=== PATIENT | male | born 1975 | race Hispanic/Latino ===

== ENCOUNTER 2017-12-05 19:57 | Emergency (ER) | payer BC ==
[2017-12-05 21:31] LABS: Amphetamine Screen,Urine PRESUMPTIVE NEGATIVE; Benzodiazepines Screen,Urine PRESUMPTIVE NEGATIVE; Cocaine Screen,Urine PRESUMPTIVE NEGATIVE; Methadone Screen,Urine PRESUMPTIVE NEGATIVE
[2017-12-05 21:51] LABS: Cannabinoid Screen,Urine PRESUMPTIVE POSITIVE; Opiate Screen,Urine PRESUMPTIVE POSITIVE
--- NOTE | 2017-12-05 21:52 | Cat Scan Report ---
FINAL REPORT PROCEDURE: CT HEAD/BRAIN WO CON TECHNIQUE: Computerized tomography of the head was performed without contrast material. HISTORY: seizure COMPARISON: No prior studies are available for comparison. FINDINGS: Skull and scalp: Normal. Paranasal sinuses: Mucosal thickening is noted involving right maxillary and left ethmoid sinuses.. Ventricles and subarachnoid spaces: Normal. Cerebrum: No evidence of hemorrhage, acute infarction or mass . Cerebellum and brainstem: No evidence of hemorrhage, acute infarction or mass. Vasculature: Normal. Comments: None. IMPRESSION: No acute intracranial abnormality Chronic sinusitis
[2017-12-05 22:30] LABS: Basophils % (Auto) 0.4 % (0.0-1.8); Eosinophils # (Auto) 0.1 K/mm3 (0.0-0.4); Eosinophils % (Auto) 0.9 % (0.0-4.3); Hematocrit 49.1 % (35.5-45.6); Hemoglobin 16.7 gm/dl (11.8-15.2); Lymphocytes # (Auto) 1.4 K/mm3 (1.2-5.4); Lymphocytes % (Auto) 15.5 % (13.4-35.0); Mean Corpuscular HGB Conc 34 % (32-34); Mean Corpuscular Hemoglobin 31 pg (28-32); Mean Corpuscular Volume 91 fl (84-94); Monocytes # (Auto) 0.4 K/mm3 (0.0-0.8); Monocytes % (Auto) 5.2 % (0.0-7.3); Platelet Count 206 K/mm3 (140-440); Red Blood Count 5.41 M/mm3 (3.65-5.03); Red Cell Distribution Width 13.4 % (13.2-15.2)
[2017-12-05 22:55] VITALS: BP 129/88
--- NOTE | 2017-12-05 22:57 | Emergency Department Report ---
ED Seizure HPI - General Chief Complaint: Seizure Stated Complaint: SEIZURE Time Seen by Provider: 12/05/17 22:45 Source: patient Mode of arrival: Ambulatory Limitations: No Limitations - History of Present Illness Initial Comments: Mr. Mccarty is a pleasant healthy 42-year-old male who has a history of opioid addiction and marijuana use. He had seizure-like activity earlier this afternoon. He was watching TV with his daughter. His daughter witnessed seizure-like activity. According to his report, he appeared dazed twitching all over. No incontinence. No cessation of breathing. He did not remember the event. He smokes marijuana several times a week. For the past 2-3 years has been depended on Suboxone and opioid pills that he buys from various sources. He has never cristina prescribed his medications. He never had hx of pain or injury. He has taken opioids for euphoria effect. He is now concerned about his health. He feels that he will need rehabilitation to come off opioid pills. He works in construction. Denies tobacco or alcohol use. MD Complaint: possible seizure -: Sudden, minutes(s) (3) Description of Episode: post-event confusion, other (generalized twitching, seemed dazed) Witnessed:: Yes Trauma: No Seizure History: none Place: home Possible Precipitating Event: none - Related Data Allergies Allergy/AdvReac Type Severity Reaction Status Date / Time No Known Allergies Allergy Unverified 12/05/17 21:05 ED Review of Systems ROS: Stated complaint: SEIZURE Other details as noted in HPI Comment: All other systems reviewed and negative Constitutional: denies: fever, malaise Respiratory: denies: cough Cardiovascular: denies: chest pain Gastrointestinal: denies: abdominal pain ED Past Medical Hx - Past Medical History Previous Medical History?: No - Surgical History Past Surgical History?: No - Social History Smoking Status: Never Smoker Substance Use Type: Marijuana, Other (opioid, pills) ED Physical Exam - General Limitations: No Limitations General appearance: alert, in no apparent distress - Head Head exam: Present: atraumatic, normocephalic - Eye Eye exam: Present: normal appearance - ENT ENT exam: Present: mucous membranes moist - Neck Neck exam: Present: normal inspection. Absent: tenderness, meningismus - Respiratory Respiratory exam: Present: normal lung sounds bilaterally. Absent: respiratory distress, wheezes, rales, rhonchi - Cardiovascular Cardiovascular Exam: Present: regular rate, normal rhythm. Absent: systolic murmur, diastolic murmur, rubs, gallop - GI/Abdominal GI/Abdominal exam: Present: soft, normal bowel sounds. Absent: distended, tenderness, guarding, rebound - Rectal Rectal exam: Present: deferred - Extremities Exam Extremities exam: Present: normal inspection - Back Exam Back exam: Present: normal inspection - Neurological Exam Neurological exam: Present: alert, oriented X3, CN II-XII intact, normal gait - Psychiatric Psychiatric exam: Present: normal affect, normal mood - Skin Skin exam: Present: warm, dry, intact, normal color. Absent: rash ED Course Vital Signs 12/05/17 12/05/17 12/05/17 20:06 20:53 22:54 Temperature 98.7 F 98.7 F Pulse Rate 91 H 90 72 Respiratory 20 20 18 Rate Blood Pressure 151/94 151/94 Blood Pressure 129/88 [Left] O2 Sat by Pulse 95 98 98 Oximetry ED Medical Decision Making - Lab Data Result diagrams: 12/05/17 22:04 12/05/17 22:04 - EKG Data -: EKG Interpreted by Me EKG shows normal: sinus rhythm, axis, intervals, QRS complexes, ST-T waves Rate: normal - EKG Data Interpretation: normal EKG - Radiology Data Radiology results: report reviewed CT head NAP - Medical Decision Making Mr. Mccarty was very honest. He seemed quite frightened by the event. He understands that his illicit drug use is the likely cause for seizure. At this age epilepsy with be highly unlikely. I am also concerned that his sources for pills may not be reliable. He may have pills which contain harmful additives. He has been in good health. No history of head trauma. No indication of meningitis or encephalopathy. No Obvious mass seen on head CT. He is very motivated to stop drug use. He stated that he will research drug rehab programs. He understands that he is not allowed to drive or operate heavy machinery until he is cleared by neurology. He was given seizure precautions and written and verbal form. Discharged home in stable condition. Labs CT reviewed. CBC notable for mildly elevated hemoglobin and hematocrit. ED is positive for marijuana Critical care attestation.: If time is entered above; I have spent that time in minutes in the direct care of this critically ill patient, excluding procedure time. ED Disposition Clinical Impression: Seizure, Polysubstance abuse, Marijuana abuse, Opioid dependence Disposition: DC-01 TO HOME OR SELFCARE Is pt being admited?: No Does the pt Need Aspirin: No Condition: Stable Instructions: New-Onset Seizure in Adults (ED) Referrals: MANJU DE ANDA MD [Staff Physician] - 3-5 Days ELVIRA MARTIN MD [Staff Physician] - 3-5 Days BEHZAD PRINGLE MD [Staff Physician] - 3-5 Days
[2017-12-05 22:58] LABS: Alanine Aminotransferase 15 units/L (7-56); Albumin 4.6 g/dL (3.9-5); BUN/Creatinine Ratio 11; Blood Urea Nitrogen 12 mg/dL (9-20); Calcium 9.4 mg/dL (8.4-10.2); Hemolysis Index 4
== END 2017-12-05 23:54 | disposition home or self-care (01) ==
LOC: ED 19:57
DX: G40.909 Epilepsy, unspecified, not intractable, without status epilepticus (principal); F11.20 Opioid dependence, uncomplicated; F12.10 Cannabis abuse, uncomplicated
CPT/HCPCS: 36415; 70450; 80053; 80307; 85025; 93005; 93010; 99284

== ENCOUNTER 2019-05-03 20:34 | Emergency (ER) | payer SELFPAY ==
--- NOTE | 2019-05-03 21:40 | Emergency Department Report ---
ED General Adult HPI - General Chief complaint: Overdose Stated complaint: DRUG OVERDOSE Time Seen by Provider: 05/03/19 21:03 Source: EMS Mode of arrival: Stretcher Limitations: No Limitations - History of Present Illness Initial comments: The patient presents to the ED for a drug overdose. Patient was found in front of apartment complex in his car unresponsive. Patient received 2 of Narcan and became immediately arousable. Upon the patient's arrival to the ED tells me that he took some Xanax and questionably some heroin. Patient states he feels better now and has no complaints. -: Sudden Severity scale (0 -10): 0 Consistency: now resolved Improves with: none Worsens with: none Associated Symptoms: denies other symptoms Treatments Prior to Arrival: none - Related Data Allergies Allergy/AdvReac Type Severity Reaction Status Date / Time No Known Allergies Allergy Unverified 12/05/17 21:05 ED Review of Systems ROS: Stated complaint: DRUG OVERDOSE Other details as noted in HPI Comment: All other systems reviewed and negative Constitutional: denies: chills, fever Eyes: denies: eye pain, eye discharge, vision change ENT: denies: ear pain, throat pain Respiratory: denies: cough, shortness of breath, wheezing Cardiovascular: denies: chest pain, palpitations Endocrine: no symptoms reported Gastrointestinal: denies: abdominal pain, nausea, diarrhea Genitourinary: denies: urgency, dysuria Musculoskeletal: denies: back pain, joint swelling, arthralgia Skin: denies: rash, lesions Neurological: denies: headache, weakness, paresthesias Psychiatric: denies: anxiety, depression Hematological/Lymphatic: denies: easy bleeding, easy bruising ED Past Medical Hx - Past Medical History Previous Medical History?: Yes Additional medical history: drug abuse - Surgical History Past Surgical History?: No - Social History Smoking Status: Current Every Day Smoker ED Physical Exam - General Limitations: No Limitations General appearance: alert, in no apparent distress - Head Head exam: Present: atraumatic, normocephalic - Eye Eye exam: Present: normal appearance, PERRL, EOMI - ENT ENT exam: Present: mucous membranes moist - Neck Neck exam: Present: normal inspection - Respiratory Respiratory exam: Present: normal lung sounds bilaterally. Absent: respiratory distress - Cardiovascular Cardiovascular Exam: Present: regular rate, normal rhythm. Absent: systolic murmur, diastolic murmur, rubs, gallop - GI/Abdominal GI/Abdominal exam: Present: soft, normal bowel sounds. Absent: distended, tenderness - Rectal Rectal exam: Present: deferred - Extremities Exam Extremities exam: Present: normal inspection - Back Exam Back exam: Present: normal inspection - Neurological Exam Neurological exam: Present: alert, oriented X3, CN II-XII intact. Absent: motor sensory deficit - Psychiatric Psychiatric exam: Present: normal affect, normal mood - Skin Skin exam: Present: warm, dry, intact, normal color. Absent: rash ED Course Vital Signs 05/03/19 20:45 Temperature 98.2 F Pulse Rate 104 H Respiratory 18 Rate Blood Pressure 137/94 [Right] O2 Sat by Pulse 98 Oximetry ED Medical Decision Making - EKG Data -: EKG Interpreted by Me EKG shows normal: sinus rhythm Rate: normal - Medical Decision Making Patient was evaluated emergency department for approximately 1 hour and did not have rebound from the Narcan Critical care attestation.: If time is entered above; I have spent that time in minutes in the direct care of this critically ill patient, excluding procedure time. ED Disposition Clinical Impression: Narcotic overdose Disposition: DC-01 TO HOME OR SELFCARE Is pt being admited?: No Does the pt Need Aspirin: No Condition: Stable Instructions: Narcotic Abuse (ED) Additional Instructions: RETURN IF WORSE Referrals: PRIMARY CARE [Primary Care Provider] - 3-5 Days [facility] [Provider Group] - 3-5 Days [facility] [Provider Group] - 3-5 Days Time of Disposition: 21:38
[2019-05-03 21:51] VITALS: BP 134/94
== END 2019-05-03 21:53 | disposition home or self-care (01) ==
LOC: ED 20:34
DX: T40.691A Poisoning by other narcotics, accidental (unintentional), initial encounter (principal); Y92.89 Other specified places as the place of occurrence of the external cause

== ENCOUNTER 2019-06-02 16:21 | Emergency (ER) | payer SELFPAY ==
[2019-06-02] MEDS ORDERED: NALOXONE 2 MG/2 ML INJ ONE (16:25)
[2019-06-02] MEDS ORDERED: NALOXONE 0.4 MG/1 ML INJ IV PRN (16:32)
--- NOTE | 2019-06-02 16:33 | Emergency Department Report ---
ED General Adult HPI - General Chief complaint: Overdose Stated complaint: OD/SISSY Time Seen by Provider: 06/02/19 16:31 Source: patient, EMS (Verbal report received from emergency medical services. EMS documentation not available at time of chart dictation ), RN notes reviewed, old records reviewed Mode of arrival: Stretcher Limitations: Altered Mental Status, Physical Limitation - History of Present Illness Initial comments: The patient is a 43-year-old gentleman who has a past history of overdose. He was evaluated at this hospital last month for presumptive polysubstance overdose. He is brought to the hospital by emergency medical services with a chief complaint of possible overdose. Upon arrival to the emergency room, the patient is receiving [id number] ventilation. EMS verbally reports normal Accu-Chek. History obtained from EMS. EMS states that the patient was accompanied by a friend, electrical instrument maker or significant other, who was with him in an outside automobile. There is no history of trauma as per EMS. Apparently, the patient was found in car, not running, with the doors open, unresponsive. They gave Narcan in the field with minimal response. In the emergency room, the patient awoke on his own. However, he was still somnolent, sleepy, drowsy, and intoxicated. He is moving 4 extremities. He does not make any complaint of pain. There is no complaint of homicidality or suicidality. Patient is insistent that he has not overdosed. As per verbal collateral information from EMS, there is no current suspicion of coronavirus infection -: This afternoon Radiation: other Quality: other Consistency: other Improves with: other Worsens with: other Associated Symptoms: other - Related Data Previous Rx's Medication Instructions Recorded Last Taken Type Naloxone HCl [Narcan Nasal [place]] 4 mg NS PRN PRN #2 spray 06/02/19 Unknown Rx Allergies Allergy/AdvReac Type Severity Reaction Status Date / Time No Known Allergies Allergy Unverified 12/05/17 21:05 ED Review of Systems ROS: Stated complaint: OD/SISSY Other details as noted in HPI Comment: Unobtainable due to pts medical conditions (Somnolent and intoxicated) ED Past Medical Hx - Past Medical History Additional medical history: drug abuse - Social History Smoking Status: Never Smoker - Medications Home Medications: Home Medications Medication Instructions Recorded Confirmed Last Taken Type Naloxone HCl [Narcan Nasal [place]] 4 mg NS PRN PRN #2 spray 06/02/19 Unknown Rx ED Physical Exam - General Limitations: Other (Intoxication) General appearance: appears intoxicated, lethargic - Head Head exam: Present: atraumatic, normocephalic - Eye Eye exam: Present: normal appearance, other (Pupils are 3 mm but react to light bilaterally) - ENT ENT exam: Present: normal exam, normal orophraynx, mucous membranes moist, normal external ear exam - Neck Neck exam: Present: normal inspection, full ROM. Absent: tenderness, meni ngismus - Respiratory Respiratory exam: Present: normal lung sounds bilaterally. Absent: respiratory distress - Cardiovascular Cardiovascular Exam: Present: regular rate, normal rhythm, normal heart sounds. Absent: bradycardia, irregular rhythm, systolic murmur, diastolic murmur, rubs, gallop - GI/Abdominal GI/Abdominal exam: Present: soft, normal bowel sounds. Absent: distended, tenderness, guarding, rebound, rigid, pulsatile mass - Rectal Rectal exam: Present: deferred - Extremities Exam Extremities exam: Present: normal inspection, other (2+ pulses noted in the bilateral upper and lower extremities. There is no palpable cord. negative Homans sign. Muscular compartments are soft. The pelvis is stable.). Absent: pedal edema, calf tenderness - Back Exam Back exam: Present: normal inspection. Absent: tenderness, CVA tenderness (R), CVA tenderness (L), paraspinal tenderness, vertebral tenderness - Neurological Exam Neurological exam: Present: altered, other (Patient sleepy but arousable. When the patient is awake, he is moving 4 extremities, and is able to speak in complete sentences. However, a detailed neurologic examination is not possible secondary to clinical intoxication) - Skin Skin exam: Present: warm, dry, intact, normal color. Absent: rash ED Course Vital Signs 06/02/19 16:27 Pulse Rate 103 H Respiratory 11 L Rate Blood Pressure 127/82 [Left] O2 Sat by Pulse 97 Oximetry - Reevaluation(s) Reevaluation #1: 06/02/19 17:30 Differential diagnosis, including but not limited to: Polysubstance overdose, respiratory depression secondary to aforementioned Assessment and plan: 43-year-old gentleman, who is clinically intoxicated has a documented history of polysubstance overdose in the past at this hospital, presenting with a probable reoccurrence of polysubstance overdose. The patient will desaturates to 82%, but then breathes deeply, and saturation improved to the low 90s. On supplemental oxygen, he is saturating in the mid 90s. He moves 4 extremities when he is aroused, and he is currently protecting his airway. The patient initially declined and refused laboratory studies to evaluate/rule out for toxic ingestion that would require emergency antidote, however, the patient does not have decision-making capacity at this time, he is clinically impaired, and he is not accompanied by a surrogate decision maker. Ultimately, the patient agreed to allow for diagnostic laboratory studies to exclude potentially time sensitive overdoses. There is no evidence of blunt trauma to the head or neck, and as per EMS, there is no history of trauma in the field. This is most likely an accidental recreational overdose, we will place patient on library monitor, observe pending clinical sobriety, and reassess once sobriety has been obtained. Reevaluation #2: 06/02/19 18:01 Resting comfortably, and in no acute distress. Leukocytosis reviewed and appreciated. This is likely a stress demargination Reevaluation #3: 06/02/19 19:22 Saturating well on supplemental oxygen, no acute distress. Patient remains sleepy but arousable. Continues to protect airway. We are awaiting clinical sobriety. Reevaluation #4: 06/02/19 21:59 06/02/19 22:20 mental status much improved. Patient awake, alert, oriented, clinically sober, and exhibits decision-making capacity and walks with a steady gait at this time. He states that he took an unknown tablet prior to arrival. He is adamant and reiterates that this was for recreational reasons, and not for homicidal or suicidal reasons. He states his is coming by to pick him up. ED Medical Decision Making - Lab Data Result diagrams: 06/02/19 17:22 06/02/19 17:22 Vital Signs 06/02/19 16:27 Pulse Rate 103 H Respiratory 11 L Rate Blood Pressure 127/82 [Left] O2 Sat by Pulse 97 Oximetry Vital Signs 06/02/19 16:27 Pulse Rate 103 H Respiratory 11 L Rate Blood Pressure 127/82 [Left] O2 Sat by Pulse 97 Oximetry Lab Results 03/26/20 03/26/20 03/26/20 Range/Units 17:22 17:22 17:22 WBC 22.8 H (4.5-11.0) K/mm3 RBC 5.15 H (3.65-5.03) M/mm3 Hgb 15.1 (11.8-15.2) gm/dl Hct 45.5 (35.5-45.6) % MCV 88 (84-94) fl MCH 29 (28-32) pg MCHC 33 (32-34) % RDW 14.1 (13.2-15.2) % Plt Count 258 (140-440) K/mm3 Sodium 141 (137-145) mmol/L Potassium 4.8 (3.6-5.0) mmol/L Chloride 101.2 (98-107) mmol/L Carbon Dioxide 27 (22-30) mmol/L Anion Gap 18 mmol/L BUN 15 (9-20) mg/dL Creatinine 1.4 (0.8-1.5) mg/dL Estimated GFR 56 ml/min BUN/Creatinine Ratio 11 % Glucose 169 H (75-100) mg/dL Calcium 9.1 (8.4-10.2) mg/dL Magnesium 2.40 H (1.7-2.3) mg/dL Total Creatine Kinase 169 (55-170) units/L Acetaminophen < 5.0 L (10.0-30.0) ug/mL Plasma/Serum Alcohol (0-0.07) % 06/02/19 Range/Units 17:22 WBC (4.5-11.0) K/mm3 RBC (3.65-5.03) M/mm3 Hgb (11.8-15.2) gm/dl Hct (35.5-45.6) % MCV (84-94) fl MCH (28-32) pg MCHC (32-34) % RDW (13.2-15.2) % Plt Count (140-440) K/mm3 Sodium (137-145) mmol/L Potassium (3.6-5.0) mmol/L Chloride (98-107) mmol/L Carbon Dioxide (22-30) mmol/L Anion Gap mmol/L BUN (9-20) mg/dL Creatinine (0.8-1.5) mg/dL Estimated GFR ml/min BUN/Creatinine Ratio % Glucose (75-100) mg/dL Calcium (8.4-10.2) mg/dL Magnesium (1.7-2.3) mg/dL Total Creatine Kinase (55-170) units/L Acetaminophen (10.0-30.0) ug/mL Plasma/Serum Alcohol < 0.01 (0-0.07) % - EKG Data 06/02/19 17:29 Sinus rhythm, 101 bpm, tachycardia, borderline leftward axis deviation, left bundle branch block morphology, QTC prolonged, no endorsement of chest pain, abnormal EKG, not a STEMI - Radiology Data Radiology results: report reviewed, image reviewed X-ray of the chest is negative for acute disease Critical care attestation.: If time is entered above; I have spent that time in minutes in the direct care of this critically ill patient, excluding procedure time. ED Disposition Clinical Impression: History of drug overdose Is pt being admited?: No Does the pt Need Aspirin: No Condition: Stable Instructions: Narcotic Abuse (ED), Polysubstance Abuse (ED) Additional Instructions: Do not drive or operate motor vehicles for the next 6 months, or until cleared to do so by a primary care doctor. Recommend that patient abstain from recreational drug consumption. Recreational drug consumption may cause respiratory depression, , paralysis, permanent loss of quality of life. Recommend follow-up with an outpatient primary care doctor within the next 5 to 7 days. Patient should use the Narcan medication for signs of opioid overdose, including decreased breathing, not breathing, confusion, lethargy, altered mental status. If any of these conditions develop, or if the patient develops new, worsened or different symptoms not present on the initial emergency room evaluation, or if the patient has any additional new concerns that would not present on the initial emergency room evaluation, the patient should return to the ER right away. Avoid consumption of alcohol and sedating substances. Please return to the emergency room right away with new, worsened or different symptoms, or symptoms not present on the initial emergency room evaluation. Prescriptions: Naloxone HCl [Narcan Nasal [place]] 4 mg NS PRN PRN #2 spray PRN Reason: Opioid Reversal Referrals: TERRA UPTON MD [Primary Care Provider] - 3-5 Days KULWINDER BERNSTEIN MD [Staff Physician] - 3-5 Days [facility] [Provider Group] - 3-5 Days
--- NOTE | 2019-06-02 17:07 | XRay Report ---
CHEST 1 VIEW INDICATION / CLINICAL INFORMATION: resp distress after overdose. COMPARISON: None available. FINDINGS: SUPPORT DEVICES: None. HEART / MEDIASTINUM: No significant abnormality. LUNGS / PLEURA: No significant pulmonary or pleural abnormality. No pneumothorax. ADDITIONAL FINDINGS: No significant additional findings. IMPRESSION: 1. No acute findings. Signer Name: Jess Rojo MD Signed: 06/02/2019 5:03 PM Workstation Name: [id number]
[2019-06-02 17:43] LABS: Hematocrit 45.5 % (35.5-45.6); Hemoglobin 15.1 gm/dl (11.8-15.2); Mean Corpuscular HGB Conc 33 % (32-34); Mean Corpuscular Volume 88 fl (84-94); Platelet Count 258 K/mm3 (140-440); Red Blood Count 5.15 M/mm3 (3.65-5.03); Red Cell Distribution Width 14.1 % (13.2-15.2)
[2019-06-02 17:52] LABS: Calcium 9.1 mg/dL (8.4-10.2)
[2019-06-03 06:48] VITALS: BP 131/71
== END 2019-06-03 06:48 | disposition home or self-care (01) ==
LOC: ED 16:21
DX: R40.0 Somnolence (principal); T50.995A Adverse effect of other drugs, medicaments and biological substances, initial encounter; Z91.89 Other specified personal risk factors, not elsewhere classified; Y92.89 Other specified places as the place of occurrence of the external cause
CPT/HCPCS: 36415; 71045; 80048; 82550; 83735; 85027; 93005; 93010; 99283; J2310; 80320; G0480

== ENCOUNTER 2020-12-04 02:44 | Inpatient (IN) | payer SELFPAY ==
[2020-12-04] MEDS ORDERED: SODIUM CHLORIDE 0.9% 1000 ML 1,000 ML IV ONE (02:48)
--- NOTE | 2020-12-04 02:50 | Emergency Department Report ---
ED CPR HPI - General Stated Complaint: RESPIRATORY ARREST Time Seen by Provider: 12/04/20 02:47 - History of Present Illness Initial Comments: Patient was brought in by EMS in cardiac arrest. History is obtained from them. Patient was currently intubated. Patient was at his place of residence. Family stated that he went to take a shower and they heard him collapse. They started CPR immediately. EMS was called. They found the patient to be pulseless and apneic. He is a known heroin abuser. They administered epinephrine as well as Narcan. Patient was also given bicarb and calcium. He was found to have a wide-complex tachycardia. They ultimately did get return of spontaneous circulation. Patient was brought here for further treatment and evaluation. Again, history cannot be obtained for the patient secondary to his current status. - Related Data Previous Rx's Medication Instructions Recorded Last Taken Type Naloxone HCl [Narcan Nasal [place]] 4 mg NS PRN PRN #2 spray 06/02/19 Unknown Rx Allergies Allergy/AdvReac Type Severity Reaction Status Date / Time No Known Allergies Allergy Unverified 12/05/17 21:05 ED Review of Systems ROS: Stated complaint: RESPIRATORY ARREST Other details as noted in HPI Comment: Unobtainable due to pts medical conditions (Cardiac arrest and int ubation) ED Past Medical Hx - Past Medical History Additional medical history: drug abuse. cannot be obtained from the patient secondary to cardiac arrest and intubation - Surgical History Additional Surgical History: cannot be obtained for the patient secondary to cardiac arrest and intubation - Family History Family history: other ( cannot be obtained for the patient secondary to cardiac arrest and intubation) - Social History Smoking Status: Never Smoker Substance Use Type: Other ( cannot be obtained for the patient secondary to cardiac arrest and intubation) - Medications Home Medications: Home Medications Medication Instructions Recorded Confirmed Last Taken Type Naloxone HCl [Narcan Nasal [place]] 4 mg NS PRN PRN #2 spray 06/02/19 Unknown Rx ED Physical Exam - General Limitations: Altered Mental Status, Physical Limitation ( intubation) General appearance: other ( unresponsive and intubated) - Head Head exam: Present: atraumatic, normal inspection - Eye Eye exam: Present: other ( pupils are fixed and dilated at 5 mm with a conjugate gaze) - ENT ENT exam: Present: mucous membranes moist, other ( endotracheal tube in place) - Neck Neck exam: Present: other ( trachea is midline. No crepitus.) - Respiratory Respiratory exam: Present: normal lung sounds bilaterally ( With bag ventilation) - Cardiovascular Cardiovascular Exam: Present: normal rhythm, tachycardia - GI/Abdominal GI/Abdominal exam: Present: soft. Absent: pulsatile mass - Extremities Exam Extremities exam: Present: other ( capillary fill is 3 seconds). Absent: pedal edema - Back Exam Back exam: Present: normal inspection - Neurological Exam Neurological exam: Present: other ( patient is unresponsive and intubated. GCS is 3T.) - Psychiatric Psychiatric exam: Present: other ( Unresponsive) - Skin Skin exam: Present: warm, dry ED Course Vital Signs 12/04/20 03:02 Pulse Rate 103 H Blood Pressure 78/34 O2 Sat by Pulse 80 L Oximetry - Reevaluation(s) Reevaluation #1: 12/04/20 02:54 EMS had achieved return of spontaneous circulation. IV and labs were ordered. EKG was ordered. CT and chest x-ray have also been ordered. IV fluids will be administered and a second IV was started. Reevaluation #2: 12/04/20 03:49 Labs have been reviewed. ABG is pending. Chest x-ray has been reviewed. CT head has been reviewed, but reading is pending. Case was discussed with the hospitalist who agrees to admit. They request pulmonary consult. Reevaluation #3: 12/04/20 03:55 Dr. Carrillo was notified for critical care. ED Medical Decision Making - Lab Data Result diagrams: 12/04/20 02:50 12/04/20 02:50 - EKG Data -: EKG Interpreted by Hi Rate: tachycardia - EKG Data 12/04/20 03:55 EKG shows a sinus tachycardia 103. QRS is prolonged at 157 and the patient has a pattern consistent with left bundle branch block. QT corrected is 551. There is no ST elevation. There is no ST depression noted. - Radiology Data Radiology results: report reviewed - Medical Decision Making Patient presented as a out of hospital cardiac arrest. He did receive bystander CPR. Patient did not respond to Narcan which would normally respond opioid and heroin abuse. Based on that, further work-up was undertaken to determine whether there was some other pathology. Patient is still currently unresponsive. He is intubated. We will continue with resuscitation as well as ICU admission. I suspect the hypercalcemia is likely related to calcium administered by EMS. Whether or not the left bundle branch block is related to some sort of cardiac pathology is not known. Troponin is noted and normal. There was no evidence of STEMI. He does not meet Scarbossa criteria. There was no obvious intraparenchymal bleed. There would have to be concern for hypoxic injury given his presentation. Critical Care Time: Yes Critical care attestation.: If time is entered above; I have spent that time in minutes in the direct care of this critically ill patient, excluding procedure time. Critical Care Time: Critical care time of 55 minutes exclusive of all procedures ED Disposition Clinical Impression: Cardiac arrest, Hypermagnesemia, Hypercalcemia Disposition: ADMITTED INPATIENT Is pt being admited?: Yes Does the pt Need Aspirin: No Condition: Critical
[2020-12-04 03:26] LABS: Alanine Aminotransferase 72 units/L (7-56); BUN/Creatinine Ratio 11; Blood Urea Nitrogen 21 mg/dL (9-20); Calcium 10.9 mg/dL (8.4-10.2); Hemolysis Index 12
--- NOTE | 2020-12-04 03:27 | XRay Report ---
CHEST 1 VIEW INDICATION / CLINICAL INFORMATION: arrest STUDY TIME: 252 COMPARISON: 06/02/2019 FINDINGS: SUPPORT DEVICES: Endotracheal tube has been inserted and appears to be cysts in satisfactory position with tip approximately 6 cm above the eron. A nasogastric tube extends with tip in the stomach but the proximal port is just above the GE junction. Advancement by at least 4 to 5 cm would be optimal. HEART / MEDIASTINUM: Stable LUNGS / PLEURA: Mild atelectatic changes are seen in the left base. No definite pneumonic infiltrates are seen. No pneumothorax. ADDITIONAL FINDINGS: Gaseous distention of the stomach is seen. Signer Name: Jorge Luis Yao MD Signed: 12/04/2020 3:23 AM Workstation Name: [id number]
[2020-12-04 03:34] LABS: Hematocrit 43.2 % (35.5-45.6); Hemoglobin 14.2 gm/dl (11.8-15.2); Mean Corpuscular HGB Conc 33 % (32-34); Mean Corpuscular Volume 94 fl (84-94); Platelet Count 200 K/mm3 (140-440); Red Blood Count 4.59 M/mm3 (3.65-5.03); Red Cell Distribution Width 14.9 % (13.2-15.2)
--- NOTE | 2020-12-04 03:56 | Cat Scan Report ---
CT HEAD WITHOUT CONTRAST INDICATION: Post-Cardiac Arrest TECHNIQUE: All CT scans at this location are performed using CT dose reduction for ALARA by means of automated exposure control. COMPARISON: None available. NOTE: Motion artifact degrades the study despite 2 attempts. FINDINGS: BRAIN: No hemorrhage or mass effect are seen. No evidence of acute infarction is noted. ORBITS: Normal as visualized. SOFT TISSUES OF HEAD: Normal. CALVARIUM: Normal. VISUALIZED PARANASAL SINUSES AND MASTOID AIR CELLS: Air-fluid level is seen in the right maxillary si nus with moderate filling noted. Several ethmoid air cells show filling though no air-fluid levels ar e noted in this area. Other sinuses are clear. ADDITIONAL FINDINGS: None. IMPRESSION: 1. No acute intracranial abnormality in a mildly limited study. 2. Moderate amount of fluid in the right maxillary sinus. This can be seen with acute sinusitis. Signer Name: Jorge Luis Yao MD Signed: 12/04/2020 3:51 AM Workstation Name: [email or web address]
--- NOTE | 2020-12-04 04:00 | Cat Scan Report ---
CT CHEST WITHOUT CONTRAST INDICATION: Cardiac arrest, abnormal chest x-ray CONTRAST: Without IV COMPARISON: Chest x-ray tonight All CT scans at this location are performed using CT dose reduction for ALARA by means of automated e xposure control. FINDINGS: Endotracheal tube appears to be in satisfactory position. A nasogastric tube extends just i nto the proximal portion of the stomach as discussed on radiograph tonight. No significant axillary or chest wall abnormalities are seen. Visualized portions of the upper abdome n show distention of the stomach with fluid and gas. No mediastinal or hilar masses are seen. No pleu ral effusions are noted. Probable mucous is seen in the left mainstem bronchus and trachea. No pneumo thorax or pneumomediastinum are seen. Mild probable atelectatic change is seen in the right lower lob e with atelectasis versus mild patchy pneumonitis in the left lower lobe. Motion artifact degrades th e lung nuñez evaluation. No obvious pulmonary nodules or masses are seen. IMPRESSION: Possible left lower lobe pneumonitis. Increased markings in the right lower lobe, given t he motion artifact, probably are atelectatic but minimal right-sided pneumonitis is also possible. Signer Name: Jorge Luis Yao MD Signed: 12/04/2020 3:55 AM Workstation Name: [id number]
[2020-12-04] MEDS ORDERED: MORPHINE 4 MG/1 ML INJ IV PRN (04:17)
[2020-12-04] MEDS ORDERED: MORPHINE 2 MG/1 ML INJ IV PRN (04:17)
[2020-12-04] MEDS ORDERED: ACETAMINOPHEN 650 MG RECT SUPP PR PRN (04:17)
[2020-12-04 04:24] LABS: Platelet Estimate Consistent w Auto; RBC Morphology Normal; Total Cells Counted 100
[2020-12-04 04:26] LABS: Amphetamine Screen,Urine Negative; Benzodiazepines Screen,Urine Negative; Cannabinoid Screen,Urine Negative; Cocaine Screen,Urine Negative; Methadone Screen,Urine Negative; Opiate Screen,Urine Negative
--- NOTE | 2020-12-04 04:30 | History and Physical Report ---
History of Present Illness Date of examination: 12/04/20 Date of admission: 12/04/2020 Chief complaint: Cardiac Arrest History of present illness: 45-year-old -Russian male brought in by EMS today in cardiac arrest. Patient was said to be at home taking a shower when he suddenly collapsed and CPR was immediately started. Upon arrival of EMS patient was said to be pulseless and apneic. He was given epinephrine and Narcan without any significant improvement was subsequently given sodium bicarb and calcium.. He had multiple rounds of epinephrine and eventually had return of spontaneous circulation. Most of the history was obtained from the ER staff as family members are not available and patient is already intubated. EKG was said to show a wide-complex tachycardia. Work-up in the emergency room today, significant findings were that of potassium of 3.5, BUN of 21 and creatinine 1.9. Calcium 10.9, magnesium 2.8 blood glucose of 362. Toxicology screen was negative. CT scan of the chest shows possible left lower lobe pneumonitis. There is increased markings in the right lower lobe, minimal right-sided pneumonitis is also possible. Past History Past Medical History: other (Not obtainble) Past Surgical History: Other (Not obtainble) Social history: other (Not obtainble) Family history: other (Not obtainble) Medications and Allergies Allergies Allergy/AdvReac Type Severity Reaction Status Date / Time No Known Allergies Allergy Unverified 12/05/17 21:05 Home Medications Medication Instructions Recorded Confirmed Last Taken Type Naloxone HCl [Narcan Nasal [place]] 4 mg NS PRN PRN #2 spray 06/02/19 Unknown Rx Active Meds: Active Medications Acetaminophen (Acetaminophen 650 Mg Rect Supp) 650 mg [place] Q6H PRN PRN Reason: Pain MILD(1-3)/Fever >100.5/CALLEJAS Heparin Sodium (Porcine) (Heparin 5,000 Unit/1 Ml Vial) 5,000 unit SUB-Q Q8HR GLEN Sodium Chloride (Nacl 0.9% 1000 Ml) 1,000 mls @ 125 mls/hr IV DIRECT GLEN Morphine Sulfate (Morphine 2 Mg/1 Ml Inj) 2 mg IV Q4H PRN PRN Reason: Pain, Moderate (4-6) Morphine Sulfate (Morphine 4 Mg/1 Ml Inj) 4 mg IV Q4H PRN PRN Reason: Pain , Severe (7-10) Sodium Chloride (Sodium Chloride 0.9% 10 Ml Flush Syringe) 10 ml IV BID GLNE Sodium Chloride (Sodium Chloride 0.9% 10 Ml Flush Syringe) 10 ml IV PRN PRN PRN Reason: LINE FLUSH Review of Systems ROS unobtainable: due to endotracheal tube Exam - Constitutional Vitals: Temp Pulse Resp BP Pulse Ox 103 H 78/34 99 12/04/20 03:02 12/04/20 03:02 12/04/20 03:02 General appearance: Present: well-nourished, other (Intubated) - EENT Eyes: Present: PERRL, EOM intact ENT: hearing intact, clear oral mucosa, dentition normal - Neck Neck: Present: supple, normal ROM - Respiratory Respiratory effort: normal Respiratory: bilateral: CTA - Cardiovascular Rhythm: regular Heart Sounds: Present: S1 & S2. Absent: gallop, systolic murmur, diastolic murmur, rub, click - Extremities Extremities: no ischemia, pulses intact, pulses symmetrical, No edema, normal temperature, normal color, Full ROM Peripheral Pulses: within normal limits - Abdominal General gastrointestinal: Present: soft, non-tender, non-distended, normal bowel sounds. Absent: mass - Integumentary Integumentary: Present: clear, warm, dry, normal turgor. Absent: rash - Musculoskeletal Musculoskeletal: strength equal bilaterally - Psychiatric Psychiatric: cooperative - Neurologic Neurologic: CNII-XII intact, no focal deficits, moves all extremities HEART Score - HEART Score Troponin: Troponin T < 0.010 ng/mL (0.00-0.029) 12/04/20 02:50 Results - Labs CBC & Chem 7: 12/04/20 02:50 12/04/20 02:50 Labs: Abnormal lab results 12/04/20 12/04/20 Range/Units 02:50 02:50 Seg Neuts % (Manual) 26.0 L (40.0-70.0) % Lymphocytes % (Manual) 70.0 H (13.4-35.0) % Lymphocytes # (Manual) 6.9 H (1.2-5.4) K/mm3 Potassium 3.5 L (3.6-5.0) mmol/L BUN 21 H (9-20) mg/dL Creatinine 1.9 H (0.8-1.3) mg/dL Glucose 362 H (75-100) mg/dL Calcium 10.9 H (8.4-10.2) mg/dL Magnesium 2.80 H (1.7-2.3) mg/dL AST 77 H (5-40) units/L ALT 72 H (7-56) units/L Total Protein 5.8 L (6.3-8.2) g/dL Assessment and Plan - Patient Problems (1) Cardiac arrest Current Visit: No Status: Acute Plan to address problem: Etiology unclear. Patient was successfully resuscitated. EKG showed wide-complex tachycardia with left bundle branch block. Consult will be placed to cardiology for evaluation. (2) Hypercalcemia Current Visit: No Status: Acute Plan to address problem: Will be placed on generous IV fluid. We will monitor chemistry closely. (3) Hypermagnesemia Current Visit: No Status: Acute Plan to address problem: Continue to monitor chemistry. (4) Hyperglycemia Current Visit: Yes Status: Acute Plan to address problem: Unclear if patient is diabetic. However we will monitor Accu-Cheks. (5) Pneumonitis Current Visit: Yes Status: Acute Plan to address problem: Patient will be placed on empiric IV antibiotics. Await further evaluation by the transit proof machine operator. (6) SAURABH (acute kidney injury) Current Visit: Yes Status: Acute Plan to address problem: Will continue on IV fluid. Consult nephrology for evaluation. Renal ultrasound requested. (7) DVT prophylaxis Current Visit: No Status: Acute Plan to address problem: Patient placed on subcutaneous heparin. (8) Full code status Current Visit: No Status: Acute Plan to address problem: Patient is full code.
[2020-12-04 05:06] LABS: ABG Base Excess -4.4 mmol/L (-2.0-3.0); ABG Methemoglobin 0.5 % (0.0-1.5); ABG Oxygen Saturation 99.6 % (95.0-99.0); ABG PCO2 39.7 mm Hg; ABG PH 7.341 pH Units (7.350-7.450)
[2020-12-04] MEDS: SODIUM CHLORIDE 0.9% 1000 ML 1,000 ML IV SCH ×2 (05:10→21:38)
[2020-12-04 05:11] LABS: ABG PO2 527.8 mm Hg (80.0-90.0)
[2020-12-04] MEDS: HEPARIN 5,000 UNIT/1 ML VIAL SUB-Q SCH ×3 (05:43→21:39)
[2020-12-04] MEDS ORDERED: DEXTROSE 50% IN WATER (25GM) 50 ML SYRINGE IV PRN ×2 (05:51→07:47)
[2020-12-04] MEDS: INSULIN LISPRO 100 UNIT/ML SUB-Q SCH ×5 (08:58→22:26)
[2020-12-04] MEDS: FAMOTIDINE 20 MG/2 ML INJ IV SCH ×2 (09:29→21:39)
--- NOTE | 2020-12-04 11:00 | Ultrasound Report ---
ULTRASOUND RENAL INDICATION / CLINICAL INFORMATION: SAURABH. COMPARISON: None available. FINDINGS: RIGHT KIDNEY: Length = 10.3 cm. - Echogenicity: Slight increased echogenicity - Cortical Thickness: Normal. - Hydronephrosis: None. - Cyst / Mass: None. - Stones: None seen. LEFT KIDNEY: Length = 10.4 cm. - Echogenicity: Normal. - Cortical Thickness: Normal. - Hydronephrosis: None. - Cyst / Mass: None. - Stones: None seen. URINARY BLADDER: No significant abnormality. FREE FLUID: None. ADDITIONAL FINDINGS: There is limited evaluation of the left kidney secondary to overlying medical de vice.. IMPRESSION: 1. Slight increased echogenicity of the right kidney which can be seen with medical renal disease. Janet veliz evaluation of the left kidney secondary to overlying medical billing specialist. Signer Name: Nasim Crowe DO Signed: 12/04/2020 10:55 AM Workstation Name: [id number]
--- NOTE | 2020-12-04 11:35 | Event Note ---
Date: 12/04/20 Patient seen and examined report reviewed placed consult cardiology. Monitor Accu-Cheks due to hypoglycemia insulin therapy added discussed with pharmacy. Renal function showing some improvement fence erector consulted. Await for work- up to get family updates.
--- NOTE | 2020-12-04 12:03 | Consultation ---
History of Present Illness Consult date: 12/04/20 Requesting physician: JAROCHO ANTOINE Reason for consult: other (Cardiac Arrest with ROSC; Acute Hypoxemic Respiratory Failure) History of present illness: PULMONARY/CCM CONSULT NOTE (Full dictation # [id number]) Please see dictated notes for full details Past History Past Medical History: other (Not obtainble) Past Surgical History: Other (Not obtainble) Social history: other (Not obtainble) Family history: other (Not obtainble) Medications and Allergies Allergies Allergy/AdvReac Type Severity Reaction Status Date / Time No Known Allergies Allergy Unverified 12/05/17 21:05 Home Medications Medication Instructions Recorded Confirmed Last Taken Type Naloxone HCl [Narcan Nasal [place]] 4 mg NS PRN PRN #2 spray 06/02/19 Unknown Rx Active Meds: Active Medications Acetaminophen (Acetaminophen 650 Mg Rect Supp) 650 mg [place] Q6H PRN PRN Reason: Pain MILD(1-3)/Fever >100.5/CALLEJAS Dextrose (Dextrose 50% In Water (25gm) 50 Ml Syringe) 50 ml IV Q30MIN PRN; Protocol PRN Reason: Hypoglycemia Famotidine (Famotidine 20 Mg/2 Ml Inj) 20 mg IV BID GLEN Last Admin: 12/04/20 09:29 Dose: 20 mg Documented by: Heparin Sodium (Porcine) (Heparin 5,000 Unit/1 Ml Vial) 5,000 unit SUB-Q Q8HR GLEN Last Admin: 12/04/20 05:43 Dose: 5,000 unit Documented by: Sodium Chloride (Nacl 0.9% 1000 Ml) 1,000 mls @ 125 mls/hr IV DIRECT GLEN Last Admin: 12/04/20 05:10 Dose: 125 mls/hr Documented by: Propofol (Diprivan 10 Mg/Ml) 1,000 mg in 100 mls @ 1.95 mls/hr IV TITR GLEN; Protocol Last Titration: 12/04/20 06:46 Dose: 10 mcg/kg/min, 3.9 mls/hr Documented by: Ampicillin Sodium/Sulbactam Sodium (Unasyn/Ns 1.5 Gm/50 Ml) 1.5 gm in 50 mls @ 100 mls/hr IV Q6H GLEN; Protocol Stop: 12/09/20 11:59 Insulin Human Lispro (Insulin Lispro 100 Unit/Ml) 0 unit SUB-Q Q4HR GLEN; Protocol Last Admin: 12/04/20 09:47 Dose: Not Given Documented by: Morphine Sulfate (Morphine 2 Mg/1 Ml Inj) 2 mg IV Q4H PRN PRN Reason: Pain, Moderate (4-6) Morphine Sulfate (Morphine 4 Mg/1 Ml Inj) 4 mg IV Q4H PRN PRN Reason: Pain , Severe (7-10) Sodium Chloride (Sodium Chloride 0.9% 10 Ml Flush Syringe) 10 ml IV BID [facility] Last Admin: 12/04/20 09:30 Dose: 10 ml Documented by: Sodium Chloride (Sodium Chloride 0.9% 10 Ml Flush Syringe) 10 ml IV PRN PRN PRN Reason: LINE FLUSH Physical Examination Vital signs: Vital Signs Pulse Resp BP 103 H 13 77/43 12/04/20 03:00 12/04/20 03:00 12/04/20 03:00 Results - Laboratory Findings CBC and BMP: 12/04/20 02:50 12/04/20 02:50 ABG ABG pH 7.341 pH Units (7.350-7.450) L 12/04/20 04:51 ABG pCO2 39.7 mm Hg 12/04/20 04:51 ABG pO2 527.8 mm Hg (80.0-90.0) H 12/04/20 04:51 ABG O2 Saturation 99.6 % (95.0-99.0) H 12/04/20 04:51 Abnormal lab findings: Abnormal Labs 12/04/20 12/04/20 12/04/20 02:50 02:50 04:51 Seg Neuts % (Manual) 26.0 L Lymphocytes % (Manual) 70.0 H Lymphocytes # (Manual) 6.9 H ABG pH 7.341 L ABG pO2 527.8 H ABG O2 Saturation 99.6 H ABG Base Excess -4.4 L Potassium 3.5 L BUN 21 H Creatinine 1.9 H Glucose 362 H POC Glucose Calcium 10.9 H Magnesium 2.80 H AST 77 H ALT 72 H Total Protein 5.8 L 12/04/20 12/04/20 08:19 09:42 Seg Neuts % (Manual) Lymphocytes % (Manual) Lymphocytes # (Manual) ABG pH ABG pO2 ABG O2 Saturation ABG Base Excess Potassium BUN Creatinine Glucose POC Glucose 178 H 115 H Calcium Magnesium AST ALT Total Protein
[2020-12-04] MEDS: AMPICILLIN/SULBACTA 1.5GM/50ML 1.5 GM/50 ML BAG IV SCH ×2 (12:50→18:10)
--- NOTE | 2020-12-04 13:20 | Consultation ---
History of Present Illness Consult date: 12/04/20 Consult reason: cardiac arrest History of present illness: This is a 45-year old M who is admitted with cardiopulmonary arrest. It is reported by family members the patient went to take a shower and they heard him collapse. On EMS arrival, the patient was reported as pulseless and apneic. He was intubated in the field and brought to this hospital. Head CT scan reports no acute abnormality. Initial labs shows acute renal failure, creatinine 1.9. Blood glucose is greater than 300. Toxicology report is negative. A 12 lead ECG done is sinus rhythm with left bundle branch block. The finding of LBBB appears chronic when compared to an ECG done May of last year. Cardiology consultation has been requested. Past History Past Medical History: other (Not obtainble) Past Surgical History: Other (Not obtainble) Social history: other (Not obtainble) Family history: other (Not obtainble) Medications and Allergies Allergies Allergy/AdvReac Type Severity Reaction Status Date / Time No Known Allergies Allergy Unverified 12/05/17 21:05 Home Medications Medication Instructions Recorded Confirmed Last Taken Type Naloxone HCl [Narcan Nasal [place]] 4 mg NS PRN PRN #2 spray 06/02/19 Unknown Rx Active Meds: Active Medications Acetaminophen (Acetaminophen 650 Mg Rect Supp) 650 mg [place] Q6H PRN PRN Reason: Pain MILD(1-3)/Fever >100.5/CALLEJAS Dextrose (Dextrose 50% In Water (25gm) 50 Ml Syringe) 50 ml IV Q30MIN PRN; Pro tocol PRN Reason: Hypoglycemia Famotidine (Famotidine 20 Mg/2 Ml Inj) 20 mg IV BID [facility] Last Admin: 12/04/20 09:29 Dose: 20 mg Documented by: Heparin Sodium (Porcine) (Heparin 5,000 Unit/1 Ml Vial) 5,000 unit SUB-Q Q8HR GLEN Last Admin: 12/04/20 05:43 Dose: 5,000 unit Documented by: Sodium Chloride (Nacl 0.9% 1000 Ml) 1,000 mls @ 125 mls/hr IV DIRECT GLEN Last Admin: 12/04/20 05:10 Dose: 125 mls/hr Documented by: Propofol (Diprivan 10 Mg/Ml) 1,000 mg in 100 mls @ 1.95 mls/hr IV TITR GLEN; Protocol Last Titration: 12/04/20 06:46 Dose: 10 mcg/kg/min, 3.9 mls/hr Documented by: Ampicillin Sodium/Sulbactam Sodium (Unasyn/Ns 1.5 Gm/50 Ml) 1.5 gm in 50 mls @ 100 mls/hr IV Q6H GLEN; Protocol Stop: 12/09/20 11:59 Last Admin: 12/04/20 12:50 Dose: 100 mls/hr Documented by: Insulin Human Lispro (Insulin Lispro 100 Unit/Ml) 0 unit SUB-Q Q4HR [facility]; Protocol Last Admin: 12/04/20 09:47 Dose: Not Given Documented by: Morphine Sulfate (Morphine 2 Mg/1 Ml Inj) 2 mg IV Q4H PRN PRN Reason: Pain, Moderate (4-6) Morphine Sulfate (Morphine 4 Mg/1 Ml Inj) 4 mg IV Q4H PRN PRN Reason: Pain , Severe (7-10) Sodium Chloride (Sodium Chloride 0.9% 10 Ml Flush Syringe) 10 ml IV BID [facility] Last Admin: 12/04/20 09:30 Dose: 10 ml Documented by: Sodium Chloride (Sodium Chloride 0.9% 10 Ml Flush Syringe) 10 ml IV PRN PRN PRN Reason: LINE FLUSH Physical Examination Vital Signs Pulse Resp BP 103 H 13 77/43 12/04/20 03:00 12/04/20 03:00 12/04/20 03:00 General appearance: other (intubated on the vent) Cardiac: Positive: Reg Rate and Rhythm Results 12/04/20 02:50 12/04/20 02:50 Cardiac Enzymes 12/04/20 Range/Units 02:50 AST 77 H (5-40) units/L CBC 12/04/20 Range/Units 02:50 WBC 9.8 (4.5-11.0) K/mm3 RBC 4.59 (3.65-5.03) M/mm3 Hgb 14.2 (11.8-15.2) gm/dl Hct 43.2 (35.5-45.6) % Plt Count 200 (140-440) K/mm3 Lymph # (Auto) Cosmetology Educator Comprehensive Metabolic Panel 12/04/20 Range/Units 02:50 Sodium 138 (137-145) mmol/L Potassium 3.5 L (3.6-5.0) mmol/L Chloride 98.8 (98-107) mmol/L Carbon Dioxide 22 (22-30) mmol/L BUN 21 H (9-20) mg/dL Creatinine 1.9 H (0.8-1.3) mg/dL Glucose 362 H (75-100) mg/dL Calcium 10.9 H (8.4-10.2) mg/dL AST 77 H (5-40) units/L ALT 72 H (7-56) units/L Alkaline Phosphatase 64 (35-129) units/L Total Protein 5.8 L (6.3-8.2) g/dL Albumin 4.0 (3.9-5) g/dL Assessment and Plan - Patient Problems (1) Cardiac arrest Current Visit: No Status: Acute Plan to address problem: We will obtain an echocardiogram for LVEF assessment.
[2020-12-04] MEDS ORDERED: fentaNYL 100 MCG/2 ML INJ IV PRN (13:37)
[2020-12-04] MEDS: fentaNYL DRIP Premix 2,000 MCG/100 ML BAG IV SCH ×2 (14:10→22:23)
[2020-12-04] MEDS ORDERED: MINERAL OIL/PETROLATUM, WHITE OPHTH OINT 3.5 GM OU PRN (14:11)
[2020-12-04] MEDS ORDERED: LIP THERAPY VASELINE TP PRN (14:11)
[2020-12-04 15:00] LABS: Benzodiazepines Screen,Urine Negative; Cannabinoid Screen,Urine Negative; Cocaine Screen,Urine Negative; Methadone Screen,Urine Negative; Opiate Screen,Urine Negative
[2020-12-04] MEDS ORDERED: SIMPLE SYRUP 15 ML FEEDTUBE PRN ×2 (15:31)
[2020-12-04] MEDS ORDERED: SODIUM BICARBONATE 325 MG TAB FEEDTUBE PRN (15:31)
[2020-12-04] MEDS ORDERED: LIPASE 10,500/PROTEASE 25,000/AMYLASE 43,750 (UNITS) DR CAP FEEDTUBE PRN (15:31)
[2020-12-04 15:45] LABS: ABG Base Excess -2.7 mmol/L (-2.0-3.0); ABG HCO3 20.1 mmol/L (20.0-26.0); ABG Methemoglobin 0.2 % (0.0-1.5); ABG Oxygen Saturation 98.9 % (95.0-99.0); ABG PCO2 30.9 mm Hg; ABG PH 7.432 pH Units (7.350-7.450); ABG PO2 128.7 mm Hg (80.0-90.0)
--- NOTE | 2020-12-04 16:07 | Consultation ---
History of Present Illness - Reason for Consult acute renal failure - History of Present Illness 45-year-old male with unknown past medical history, presented to the emergency department after suffering a cardiac arrest at home. Apparently he was in the shower when he collapsed. Brought in by EMS was intubated in the field. CT of the head did not show any abnormalities. Nephrology consult b ecause of initial lab work concerning for acute kidney injury. Past History Past Medical History: No medical history, other (Not obtainble) Past Surgical History: Other (Not obtainble) Social history: other (Not obtainble) Family history: other (Not obtainble) Medications and Allergies Allergies Allergy/AdvReac Type Severity Reaction Status Date / Time No Known Allergies Allergy Unverified 12/05/17 21:05 Home Medications Medication Instructions Recorded Confirmed Last Taken Type Naloxone HCl [Narcan Nasal [place]] 4 mg NS PRN PRN #2 spray 06/02/19 Unknown Rx Active Meds: Active Medications Acetaminophen (Acetaminophen 650 Mg Rect Supp) 650 mg MI Q6H PRN PRN Reason: Pain MILD(1-3)/Fever >100.5/CALLEJAS Lipase/Protease/Amylase (Lipase 10,500/Protease 25,000/Amylase 43,750 (Units) Dr Caballero) 1 each FEEDTUBE PRN PRN PRN Reason: For Clogged Feeding Tube Dextrose (Dextrose 50% In Water (25gm) 50 Ml Syringe) 50 ml IV Q30MIN PRN; Protocol PRN Reason: Hypoglycemia Famotidine (Famotidine 20 Mg/2 Ml Inj) 20 mg IV BID [facility] Last Admin: 12/04/20 09:29 Dose: 20 mg Documented by: Fentanyl (Fentanyl 100 Mcg/2 Ml Inj) 50 mcg IV Q10MIN PRN PRN Reason: ANALGESIA Heparin Sodium (Porcine) (Heparin 5,000 Unit/1 Ml Vial) 5,000 unit SUB-Q Q8HR GLEN Last Admin: 12/04/20 14:45 Dose: 5,000 unit Documented by: Hydrophilic Ointment (Lip Therapy Vaseline) 1 applic TP Q2HR PRN PRN Reason: Dry Lips Sodium Chloride (Nacl 0.9% 1000 Ml) 1,000 mls @ 125 mls/hr IV DIRECT [facility] Last Admin: 12/04/20 05:10 Dose: 125 mls/hr Documented by: Propofol (Diprivan 10 Mg/Ml) 1,000 mg in 100 mls @ 1.95 mls/hr IV TITR GLEN; Protocol Last Titration: 12/04/20 14:10 Dose: 40 mcg/kg/min, 15.6 mls/hr Documented by: Ampicillin Sodium/Sulbactam Sodium (Unasyn/Ns 1.5 Gm/50 Ml) 1.5 gm in 50 mls @ 100 mls/hr IV Q6H GLEN; Protocol Stop: 12/09/20 11:59 Last Admin: 12/04/20 12:50 Dose: 100 mls/hr Documented by: Fentanyl Citrate (Fentanyl Drip Premix) 2,000 mcg in 100 mls @ 3.25 mls/hr IV TITR GLEN; Protocol Last Admin: 12/04/20 14:10 Dose: 2 mcg/kg/hr, 6.5 mls/hr Documented by: Insulin Human Lispro (Insulin Lispro 100 Unit/Ml) 0 unit SUB-Q Q4HR GLEN; Protocol Last Admin: 12/04/20 13:56 Dose: Not Given Documented by: Morphine Sulfate (Morphine 2 Mg/1 Ml Inj) 2 mg IV Q4H PRN PRN Reason: Pain, Moderate (4-6) Morphine Sulfate (Morphine 4 Mg/1 Ml Inj) 4 mg IV Q4H PRN PRN Reason: Pain , Severe (7-10) Multi-Ingred Cream/Lotion/Oil/Oint (Mineral Oil/Petrolatum, White Ophth Oint 3.5 Gm) 1 applic OU Q4HR PRN PRN Reason: Dry Eye(s) Senna/Docusate Sodium (Sennosides/Docusate Sodium 8.6/50 Mg Tab) 1 tab FEEDTUBE BID GLEN Simple Syrup (Simple Syrup 15 Ml) 15 ml FEEDTUBE PRN PRN PRN Reason: Hypoglycemia Simple Syrup (Simple Syrup 15 Ml) 30 ml FEEDTUBE PRN PRN PRN Reason: Hypoglycemia Sodium Bicarbonate (Sodium Bicarbonate 325 Mg Tab) 325 mg FEEDTUBE PRN PRN PRN Reason: For Clogged Feeding Tube Sodium Chloride (Sodium Chloride 0.9% 10 Ml Flush Syringe) 10 ml IV BID GL[facility] Last Admin: 12/04/20 09:30 Dose: 10 ml Documented by: Sodium Chloride (Sodium Chloride 0.9% 10 Ml Flush Syringe) 10 ml IV PRN PRN PRN Reason: LINE FLUSH Review of Systems ROS unobtainable: due to endotracheal tube, due to mental status Exam - Vital Signs Vital signs: Vital Signs Pulse Resp BP 103 H 13 77/43 12/04/20 03:00 12/04/20 03:00 12/04/20 03:00 - General Appearance General appearance: sedated on ventilator, intubated EENT: ATNC Neck: Present: neck supple Respiratory: Decreased Breath Sounds Heart: regular Gastrointestinal: Present: normal Integumentary: warm and dry Musculoskeletal: Present: deferred Results - Lab Results 12/04/20 02:50 12/04/20 02:50 Most recent lab results ABG pH 7.432 pH Units (7.350-7.450) 12/04/20 13:45 ABG pCO2 30.9 mm Hg 12/04/20 13:45 ABG pO2 128.7 mm Hg (80.0-90.0) H 12/04/20 13:45 ABG HCO3 20.1 mmol/L (20.0-26.0) 12/04/20 13:45 ABG O2 Saturation 98.9 % (95.0-99.0) 12/04/20 13:45 Calcium 10.9 mg/dL (8.4-10.2) H 12/04/20 02:50 Magnesium 2.80 mg/dL (1.7-2.3) H 12/04/20 02:50 Assessment and Plan - Patient Problems (1) SAURABH (acute kidney injury) Current Visit: Yes Status: Acute Plan to address problem: Likely acute tubular necrosis versus prerenal injury in the setting of acute cardiac arrest. Agree with current regimen and continuous IV fluid hydration. Please avoid all nephrotoxins and maintain mean arterial pressures above 65 mmHg. We will obtain renal ultrasound along with urine electrolytes for further evaluation. Also obtain urine analysis at this time. (2) Cardiac arrest Current Visit: No Status: Acute Plan to address problem: Now with return of spontaneous circulation. Stable on current vent settings. Further management and recommendations per cardiology. We will continue to monitor closely. (3) Hypokalemia Current Visit: Yes Status: Acute Plan to address problem: Replete per protocol. (4) Acute respiratory failure Current Visit: Yes Status: Acute Plan to address problem: Management per pulmonology.
[2020-12-04 17:10] LABS: Amphetamine Screen,Urine Positive
[2020-12-04] MEDS ORDERED: INSULIN GLARGINE 100 UNITS/ML SUB-Q SCH (22:00)
[2020-12-04] MEDS: SENNOSIDES/DOCUSATE SODIUM 8.6/50 MG TAB FEEDTUBE SCH (22:56)
[2020-12-05] MEDS ORDERED: AMIODARONE 150 MG/3 ML INJ IV ONE (01:00)
--- NOTE | 2020-12-05 01:17 | Consultation ---
DATE OF CONSULTATION: 12/04/2020 PULMONARY CRITICAL CARE CONSULTATION NOTE CONSULTING PHYSICIAN: ____, ER physician. REASON FOR CONSULTATION: Acute respiratory failure, on mechanical ventilatory support. Cardiac arrest with return of spontaneous circulation. CHIEF COMPLAINT AND HISTORY OF PRESENT ILLNESS: The patient is a now 45-year-old male with past medical history significant for heroin abuse, amongst other things and apparently polysubstance abuse. The patient was brought in by EMS after a cardiac arrest that mentioned that the patient was at his place of residence. He went to take a shower. They had him collapsed. CPR was started immediately. The patient was found pulseless and apneic. They administered epinephrine as well as Narcan. He was given bicarbonate, calcium. He had a wide complex tachycardia. They did get a return of spontaneous circulation and was brought into the Emergency Room. In the Emergency Room, he was evaluated. It appears like he was intubated in the ER and post-stabilization, we are going to ask to assist with management. He was evaluated for a STEMI, ST elevation NC and evaluation was negative. When I stopped by to see him, he remained on the mechanical ventilator. He was on the assist control mode of ventilation, tidal volumes 450, rate of 20 and PEEP of 6. However, he was breathing about 28-30 times a minute. He was sweaty and diaphoretic profusely and with moderately increased respiratory effort, on propofol drip going at 15 mcg per kilogram per minute. I do not have any history of seizures. I do not have any history of vomiting or overt aspiration. The above is as much of the history of presentation as I have. PAST MEDICAL HISTORY: Drug abuse. PAST SURGICAL HISTORY: Unknown. MEDICATIONS: He was on at the time I stopped by to see him were reviewed, pertinent medications include the following: Tylenol 650 mg per rectum q.6 hours p.r.n. mild pain or fevers, Unasyn 1.5 grams IV q. 6 hours, Pepcid 20 mg IV b.i.d., fentanyl drip has just been ordered, heparin 5000 units subQ q. 8 hours, insulin via sliding scale, morphine 4 mg IV q. 4 hours p.r.n. severe pain, propofol drip was going at 15 mcg per kilogram per minute. ALLERGIES: No known drug allergies. DIET: Well built gentleman, acute weight loss or gain history is unknown. FAMILY AND SOCIAL HISTORY: Lives in his home in the community. His mother has been on the phone with us in the emergency room. He has a history of polysubstance abuse. Alcohol, tobacco abuse history is unknown. REVIEW OF SYSTEMS: Unobtainable secondary to patient's medical and mental condition since he has been here. No gross hematochezia or melena. No gross hematuria. No hematemesis. No bloody tracheal secretions. No witnessed seizures. Review of systems otherwise unobtainable as in body of history above. PHYSICAL EXAMINATION: VITAL SIGNS: On examination at presentation here, initial temperature 99.9 degrees Fahrenheit, pulse of 103, respiratory rate of 13 and blood pressure 77/43, O2 sats were 99%, inspired oxygen concentration at that time was not recorded. GENERAL: He is a middle-aged male. Normocephalic, atraumatic on the mechanical ventilator with a moderately increased respiratory effort at rest. HEAD, EYES, EARS, NOSE AND THROAT: He appears to have right corneal emulsification/opacification, however, no conjunctival erythema. He is anicteric. No gross jugular venous distention, no thyromegaly. Grossly, there were no palpable lymph nodes in the supraclavicular or submandibular lymph node chains. LUNGS: Auscultation of both lung nuñez unremarkable. He has good bilateral breath sounds and air movement without any wheezing. HEART: Heart sounds 1 and 2 are heard. There were regular rate and rhythm at the time of my evaluation without overt rubs or murmurs. ABDOMEN: Soft, flat. Bowel sounds are positive, nontender. No palpable hepatosplenomegaly. EXTREMITIES: Without overt digital clubbing or cyanosis, no pedal edema. Pedal pulses are 2+ bilaterally. NEUROLOGIC: The left pupil was about 3 mm, round, reactive to light. Extraocular muscle movements cannot be assessed. He did seem to have spontaneous movements to all his extremities. SKIN: His skin is of normal turgor in the areas examined without overt cellulitis or rash. He had multiple tattoos on his body. Please see the wound care nurses' notes for full description of his skin. PSYCHIATRIC: Mood and affect could not be assessed. He was sedated. LABORATORY DATA: From my review as follows: Admission white cell count 9800, hemoglobin 14.2, hematocrit 43.2, platelet count 200. No band forms on the manual differential. Venous blood gas showed a pH of 7.34, pCO2 of 40, pO2 of 528, earlier this morning on 100% on the above-mentioned vent settings. Serum sodium 138, potassium 3.5, chloride 99, bicarbonate 22, BUN 21, creatinine 1.9, glucose 362. Hemoglobin A1c within normal limits. AST was up at 77, ALT was up at 72. Liver function tests otherwise within normal limits. Urine drug screen is presumptive negative. Alcohol level was less than 0.01. No microbiology studies. Chest x-ray was done. I have reviewed the chest x-ray. He does have cardiomegaly, globular heart. ET tube is in good position. No gross pneumothorax, no gross bony fracture that I can see. No real acute process. A CT scan of his head was also done, no acute process. Moderate amount of fluid in the right maxillary sinus. CT of his chest was done. It is a noncontrast CT scan and lung windows shows some patchy infiltrates in the bases/dependent areas, certainly in the left lower lobe greater than the right lower lobe. There is a lot of motion artifact that degrades the imaging. Kidney ultrasound has been ordered. ASSESSMENT: 1. Acute respiratory failure. 2. Cardiac arrest with return of spontaneous circulation. 3. History of drug abuse. 4. Acute kidney injury. 5. Acute toxic metabolic encephalopathy. 6. Hypokalemia, mild. 7. Elevated serum transaminases. 8. Oropharyngeal dysphagia. PLAN: I have discussed with the attending. We will increase his sedation, in particular we will be resuming fentanyl in light of the history of opiate abuse for now just to try and calm him down. Propofol has also been ordered to be up titrated. We will target RASS scale of about -1 to -2 acutely. I have ordered a stat ABG to ensure that he is getting adequate ventilation and his air hunger is not related to his significant acidosis. Once that is confirmed, we will continue with the sedation plans. Ventilator-associated pneumonia bundle has been introduced. Bronchodilators will be ordered on a p.r.n. basis. He has been started on empiric antibiotic coverage including coverage for an aspiration pneumonia. I do feel that with the history given, the current social conditions, evaluating him for coronavirus infection is appropriate. In the meantime, empiric airborne and contact isolation will be placed. I will order a procalcitonin level, CRP levels and other markers of possible COVID-19 to help guide clinical decision making . Tracheal aspirate will be ordered. A nephrology consultation has been placed. Urine electrolytes will be followed. Gentle volume hydration will be ordered in the short time. Enteral nutrition will be the feeding modality of choice. He is on DVT prophylaxis and GI prophylaxis. Cardiology consultation is appropriate. Flu and pneumonia vaccination will be addressed per protocol. Thank you very much for the consult. We will follow along and make further recommendations as picture progresses/becomes clearer. He is critically ill on life-sustaining interventions including mechanical ventilatory support at very high risk of from cardiopulmonary system decompensation. At this time I spent about 35-40 minutes of critical care time without overlap and excluding any procedural time that may be necessary. TID: [id number] RECEIPT: [id number] JALIL/FAVIO
[2020-12-05] MEDS: AMIODARONE 150 MG in DEXTROSE 5% IN WATER 100 ML IV ONE ×2 (01:29→01:35)
[2020-12-05] MEDS: AMPICILLIN/SULBACTA 1.5GM/50ML 1.5 GM/50 ML BAG IV SCH ×2 (01:36→05:40)
[2020-12-05] MEDS: INSULIN LISPRO 100 UNIT/ML SUB-Q SCH ×3 (02:37→15:31)
[2020-12-05] MEDS ORDERED: AMIODARONE 900 MG in DEXTROSE 5% IN WATER 482 ML IV SCH (03:00)
[2020-12-05] MEDS: fentaNYL DRIP Premix 2,000 MCG/100 ML BAG IV SCH (04:52)
[2020-12-05 05:03] LABS: Basophils % (Auto) 0.1 % (0.0-1.8); Hematocrit 48.2 % (35.5-45.6); Hemoglobin 16.2 gm/dl (11.8-15.2); Lymphocytes # (Auto) 1.5 K/mm3 (1.2-5.4); Lymphocytes % (Auto) 7.3 % (13.4-35.0); Mean Corpuscular HGB Conc 34 % (32-34); Mean Corpuscular Volume 91 fl (84-94); Monocytes # (Auto) 1.7 K/mm3 (0.0-0.8); Monocytes % (Auto) 8.4 % (0.0-7.3); Platelet Count 188 K/mm3 (140-440); Red Blood Count 5.31 M/mm3 (3.65-5.03); Red Cell Distribution Width 15.1 % (13.2-15.2)
[2020-12-05 05:13] LABS: INR 1.4 (0.87-1.13)
[2020-12-05] MEDS: HEPARIN 5,000 UNIT/1 ML VIAL SUB-Q SCH ×3 (05:40→21:12)
[2020-12-05] MEDS ORDERED: ACETAMINOPHEN 325 MG RECT SUPP PR ONE (05:48)
[2020-12-05] MEDS ORDERED: IBUPROFEN ORAL LIQD 100 MG/5 ML ORAL.LIQD FEEDTUBE ONE (05:50)
[2020-12-05] MEDS ORDERED: VANCOMYCIN/NS 1 GM/250 ML 1 GM/250 ML BAG IV ONE (05:56)
[2020-12-05] MEDS ORDERED: VANCOMYCIN PHARMACY TO DOSE IV SCH (06:00)
--- NOTE | 2020-12-05 06:00 | Event Note ---
Date: 12/05/20 Overnight patient had heart rate in the 150s to 160s, 150 mg amiodarone bolus given with no response, patient started on amnio drip. This morning patient had rectal temp of 107.6, patient received Tylenol suppository 650x1, Tylenol suppository 325x1; ordered 600 mg of liquid ibuprofen, blood cultures, stat UA, and loading dose of vancomycin, followed by pharmacy to dose maintenance. Patient has developed leukocytosis in addition to fever with white count now at 20 K (trending up from 9K yesterday).
[2020-12-05 06:32] LABS: Bacteria,Urine 1+ /HPF (Negative); Bilirubin,Urine NEG (Negative); Blood,Urine SM (Negative); Color,Urine Amber (Yellow); Granular Casts,Urine 11 /LPF; Mucus,Urine 1+ /HPF; Urobilinogen,Urine < 2.0 mg/dL (<2.0)
[2020-12-05] MEDS ORDERED: ACETAMINOPHEN 325 MG TAB PO PRN (08:09)
[2020-12-05] MEDS ORDERED: HYDROmorphone 1 MG/1 ML INJ IV PRN (08:09)
--- NOTE | 2020-12-05 08:12 | XRay Report ---
ABDOMEN 1 VIEW(S) INDICATION / CLINICAL INFORMATION: to check tube placement. COMPARISON: None available. FINDINGS: TUBES / LINES: The distal tip of the nasogastric tube terminates at the GE junction. Advancement by 1 0 to 15 cm is recommended. BOWEL GAS PATTERN: There is mild gaseous distention of the stomach. The small bowel loops and colon a re unremarkable. FREE AIR / EXTRALUMINAL GAS: None seen. ADDITIONAL FINDINGS: No significant additional findings. IMPRESSION: Recommend advancement of the nasogastric tube as described. Signer Name: Leonard Burks Jr, MD Signed: 12/05/2020 8:07 AM Workstation Name: [id number]
[2020-12-05] MEDS ORDERED: SODIUM CHLORIDE 0.9% 1000 ML 1,000 ML IV ONE (08:30)
[2020-12-05] MEDS ORDERED: SODIUM CHLORIDE 0.9% 1000 ML IV SOLN IV ONE (08:30)
--- NOTE | 2020-12-05 08:58 | XRay Report ---
CHEST - 1 VIEW INDICATION: follow up respiratory failure COMPARISON: Yesterday FINDINGS: SUPPORT DEVICES: Stable support device positioning. HEART: Stable cardiomediastinal silhouette. LUNGS/PLEURA: Persistent mild patchy multifocal airspace disease. ADDITIONAL FINDINGS: None. IMPRESSION: Unchanged exam. Signer Name: Jun Dowling MD Signed: 12/05/2020 8:54 AM Workstation Name: [id number]
[2020-12-05] MEDS ORDERED: cefTRIAXone/NS 2 GM/100 ML 2 GM/100 ML BAG IV SCH (09:00)
--- NOTE | 2020-12-05 09:14 | Progress Note ---
Assessment and Plan - Patient Problems (1) SAURABH (acute kidney injury) Current Visit: Yes Status: Acute Plan to address problem: Likely acute tubular necrosis versus prerenal injury in the setting of acute cardiac arrest. Also concern for possible underlying cardiorenal syndrome in the setting of significantly reduced ejection fraction of 10 to 15%. Agree with current regimen but would recommend holding off on continued IV fluid hydration given echocardiogram findings with ejection fraction of 10 to 15%.. Please avoid all nephrotoxins and maintain mean arterial pressures above 65 mmHg. Renal ultrasound did not show any acute abnormalities. Urine analysis reviewed without any acute abnormalities. (2) Cardiac arrest Current Visit: No Status: Inactive Plan to address problem: Tachycardic overnight and started on amiodarone drip. Cardiology recommendations appreciated. Echocardiogram reviewed with findings of ejection fraction 10 to 15%. (3) Hypokalemia Current Visit: Yes Status: Acute Plan to address problem: Improved now with evidence of hyperkalemia on morning labs. Medical management recommended at this time. (4) Acute respiratory failure Current Visit: Yes Status: Acute Plan to address problem: Management per pulmonology. (5) Cardiorenal syndrome with renal failure Current Visit: Yes Status: Acute Plan to address problem: Left ventricle is severely dilated with ejection fraction estimated at 10 to 15%. Chest x-ray reviewed. Avoid continuous IV fluid hydration given markedly abnormal ejection fraction. Need to monitor closely. Subjective Date of service: 12/05/20 Interval history: Patient has now been transferred up to the intensive care unit from the emergency room. Overnight it was noted that he became more tachycardic and has been started on amiodarone drip. He is also noted to be febrile with a rectal temperature of 107 F per notes. Started on broad-spectrum antibiotics. Echocardiogram reviewed with ejection fraction estimated at 10 to 15%. Continues IV fluids instructed to be discontinued for now given significant decrease in left ventricular ejection fraction and risk for fluid overload. Patient remains intubated on stable vent settings at this time. Renal indices noted to show worsening kidney function. Lopez catheter with 175 cc of urine noted in Lopez at this time. Objective - Vital Signs Vital signs: Vital Signs - 12hr 12/04/20 12/04/20 12/04/20 21:15 21:30 21:45 Temperature Pulse Rate 141 H 141 H 142 H Respiratory 37 H 37 H 38 H Rate Blood Pressure 122/80 121/82 124/82 Blood Pressure [Left] O2 Sat by Pulse 98 98 98 Oximetry 12/04/20 12/04/20 12/04/20 22:00 22:15 22:30 Temperature Pulse Rate 142 H 142 H 142 H Respiratory 36 H 35 H 36 H Rate Blood Pressure 127/84 128/78 128/82 Blood Pressure [Left] O2 Sat by Pulse 99 99 99 Oximetry 12/04/20 12/04/20 12/04/20 22:45 23:00 23:02 Temperature Pulse Rate 142 H 143 H 142 H Respiratory 35 H 36 H Rate Blood Pressure 125/85 121/83 122/84 Blood Pressure [Left] O2 Sat by Pulse 99 98 98 Oximetry 12/04/20 12/04/20 12/04/20 23:15 23:30 23:45 Temperature Pulse Rate 142 H 142 H 143 H Respiratory 36 H 36 H 35 H Rate Blood Pressure 122/81 124/81 126/83 Blood Pressure [Left] O2 Sat by Pulse 98 98 98 Oximetry 12/05/20 12/05/20 12/05/20 00:00 00:12 00:15 Temperature Pulse Rate 142 H 142 H 142 H Respiratory 34 H 35 H 35 H Rate Blood Pressure 123/84 126/84 122/78 Blood Pressure [Left] O2 Sat by Pulse 98 98 98 Oximetry 12/05/20 12/05/20 12/05/20 00:30 00:45 01:00 Temperature Pulse Rate 143 H 143 H 132 H Respiratory 35 H 35 H 36 H Rate Blood Pressure 120/78 122/82 110/76 Blood Pressure [Left] O2 Sat by Pulse 98 98 98 Oximetry 12/05/20 12/05/20 12/05/20 01:15 01:30 01:45 Temperature Pulse Rate 134 H 136 H 136 H Respiratory 35 H 35 H 35 H Rate Blood Pressure 118/79 115/78 118/80 Blood Pressure [Left] O2 Sat by Pulse 98 97 98 Oximetry 12/05/20 12/05/20 12/05/20 02:00 02:15 02:30 Temperature Pulse Rate 138 H 138 H 140 H Respiratory 35 H 35 H 34 H Rate Blood Pressure 118/79 119/79 121/79 Blood Pressure [Left] O2 Sat by Pulse 97 98 98 Oximetry 12/05/20 12/05/20 12/05/20 02:45 03:00 03:15 Temperature Pulse Rate 141 H 143 H 149 H Respiratory 34 H 35 H 35 H Rate Blood Pressure 119/78 120/75 120/72 Blood Pressure [Left] O2 Sat by Pulse 98 96 97 Oximetry 12/05/20 12/05/20 12/05/20 03:30 03:45 04:00 Temperature Pulse Rate 149 H 148 H 149 H Respiratory 36 H 35 H 34 H Rate Blood Pressure 115/70 115/65 112/62 Blood Pressure [Left] O2 Sat by Pulse 97 97 Oximetry 12/05/20 12/05/20 12/05/20 04:15 04:30 04:40 Temperature Pulse Rate 148 H 149 H 137 H Respiratory 34 H 32 H Rate Blood Pressure 111/57 114/54 134/74 Blood Pressure [Left] O2 Sat by Pulse 97 98 Oximetry 12/05/20 12/05/20 12/05/20 04:45 05:00 05:15 Temperature 107.5 F H Pulse Rate 149 H 147 H Respiratory 28 H 26 H Rate Blood Pressure 116/48 106/43 Blood Pressure [Left] O2 Sat by Pulse 98 96 Oximetry 12/05/20 12/05/20 12/05/20 05:16 05:30 05:45 Temperature Pulse Rate 146 H 141 H 137 H Respiratory 24 23 25 H Rate Blood Pressure 106/43 106/37 98/38 Blood Pressure [Left] O2 Sat by Pulse 94 94 Oximetry 12/05/20 12/05/20 12/05/20 06:00 06:15 06:30 Temperature Pulse Rate 136 H 133 H 128 H Respiratory 25 H 24 25 H Rate Blood Pressure 100/42 98/42 100/39 Blood Pressure [Left] O2 Sat by Pulse 95 94 94 Oximetry 12/05/20 12/05/20 08:03 08:45 Temperature 104.1 F H 102.8 F H Pulse Rate 122 H 113 H Respiratory 25 H 20 Rate Blood Pressure Blood Pressure 91/35 71/31 [Left] O2 Sat by Pulse 98 98 Oximetry - General Appearance General appearance: chronically ill, intubated, frail EENT: ATNC Neck: no JVD Respiratory: Present: Decreased Breath Sounds Cardiology: regular Gastrointestinal: normal Integumentary: no rash Musculoskeletal: deferred - Lab 12/05/20 04:39 12/05/20 04:39 Most recent lab results ABG pH 7.349 (7.320-7.450) 12/05/20 03:30 ABG pCO2 30.9 mm Hg 12/04/20 13:45 ABG pO2 128.7 mm Hg (80.0-90.0) H 12/04/20 13:45 ABG HCO3 20.1 mmol/L (20.0-26.0) 12/04/20 13:45 ABG O2 Saturation 96.7 (0-100) 12/05/20 03:30 Calcium 8.0 mg/dL (8.4-10.2) L D 12/05/20 04:39 Magnesium 2.80 mg/dL (1.7-2.3) H 12/04/20 02:50 - Allied health notes Allied health notes reviewed: nursing Medications & Allergies - Medications Allergies/Adverse Reactions: Allergies No Known Allergies Allergy (Unverified 12/05/17 21:05) Home Medications: Home Medications Medication Instructions Recorded Confirmed Last Taken Type Naloxone HCl [Narcan Nasal [place]] 4 mg NS PRN PRN #2 spray 06/02/19 Unknown Rx Active Medications: Generic Name Dose Route Start Last Admin Trade Name Freq PRN Reason Stop Dose Admin Acetaminophen 650 mg 12/04/20 04:17 12/05/20 05:30 Acetaminophen 650 Mg Rect Supp [place] 650 mg Q6H PRN Administration Pain MILD(1-3)/Fever >100.5/CALLEJAS Acetaminophen 650 mg 12/05/20 08:09 Acetaminophen 325 Mg Tab PO Q6H PRN Pain, Mild (1-3) Lipase/Protease/Amylase 1 each 12/04/20 15:31 Lipase 10,500/Protease 25,000/Amylase 43,750 (Units) Dr Caballero FEEDTUBE PRN PRN For Clogged Feeding Tube Dextrose 50 ml 12/04/20 07:47 Dextrose 50% In Water (25gm) 50 Ml Syringe IV Q30MIN PRN Hypoglycemia Protocol Famotidine 10 mg 12/05/20 10:00 Famotidine 20 Mg/2 Ml Inj IV BID GLEN Fentanyl 50 mcg 12/04/20 13:37 Fentanyl 100 Mcg/2 Ml Inj IV Q10MIN PRN ANALGESIA Heparin Sodium (Porcine) 5,000 unit 12/04/20 06:00 12/05/20 05:40 Heparin 5,000 Unit/1 Ml Vial SUB-Q 5,000 unit Q8HR GLEN Administration Hydromorphone HCl 0.25 mg 12/05/20 08:09 Hydromorphone 1 Mg/1 Ml Inj IV Q4H PRN Pain, Moderate (4-6) Hydrophilic Ointment 1 applic 12/04/20 14:11 Lip Therapy Vaseline TP Q2HR PRN Dry Lips Propofol 1,000 mg in 100 mls @ 1.95 mls/hr 12/04/20 06:00 12/05/20 05:30 Diprivan 10 Mg/Ml IV 40 mcg/kg/min TITR GLEN 15.6 mls/hr Administration Protocol 5 MCG/KG/MIN Fentanyl Citrate 2,000 mcg in 100 mls @ 3.25 mls/hr 12/04/20 14:00 12/05/20 05:40 Fentanyl Drip Premix IV 2 mcg/kg/hr TITR GLEN 6.5 mls/hr Titration Protocol 1 MCG/KG/HR Ceftriaxone Sodium 2 gm in 100 mls @ 200 mls/hr 12/05/20 09:00 Rocephin/Ns 2 Gm/100 Ml IV Q12H [facility] Protocol Sodium Chloride 1,000 mls @ 999 mls/hr 12/05/20 08:30 Nacl 0.9% 1000 Ml IV 12/05/20 09:30 BOLUS ONE Insulin Human Lispro 0 unit 12/04/20 08:00 12/05/20 05:45 Insulin Lispro 100 Unit/Ml SUB-Q Not Given Q4HR [facility] Protocol Multi-Ingred Cream/Lotion/Oil/Oint 1 applic 12/04/20 14:11 Mineral Oil/Petrolatum, White Ophth Oint 3.5 Gm OU Q4HR PRN Dry Eye(s) Senna/Docusate Sodium 1 tab 12/04/20 22:00 12/04/20 22:56 Sennosides/Docusate Sodium 8.6/50 Mg Tab FEEDTUBE 1 tab BID GLEN Administration Simple Syrup 15 ml 12/04/20 15:31 Simple Syrup 15 Ml FEEDTUBE PRN PRN Hypoglycemia Simple Syrup 30 ml 12/04/20 15:31 Simple Syrup 15 Ml FEEDTUBE PRN PRN Hypoglycemia Sodium Bicarbonate 325 mg 12/04/20 15:31 Sodium Bicarbonate 325 Mg Tab FEEDTUBE PRN PRN For Clogged Feeding Tube Sodium Chloride 10 ml 12/04/20 10:00 12/04/20 21:39 Sodium Chloride 0.9% 10 Ml Flush Syringe IV 10 ml BID GLEN Administration Sodium Chloride 10 ml 12/04/20 04:17 Sodium Chloride 0.9% 10 Ml Flush Syringe IV PRN PRN LINE FLUSH Sodium Polystyrene Sulfonate 30 gm 12/05/20 09:30 Sodium Polystyrene 15 Gm/60 Ml Oral Liqd PO 12/05/20 13:30 ONCE@0930 NR
[2020-12-05] MEDS ORDERED: SODIUM POLYSTYRENE 15 GM/60 ML ORAL LIQD PO NR (09:30)
[2020-12-05] MEDS: NORepinephrine/NS 4 MG-250 ML 4 MG/250 ML BAG IV SCH ×4 (10:08→23:24)
--- NOTE | 2020-12-05 10:35 | Progress Note ---
<FABIAN MCLEAN - Last Filed: 12/05/20 16:47> Assessment and Plan Assessment and plan: 45-year-old -[place] male with a history of polysubstance abuse and narcotic abuse, brought in by EMS s/p cardiac arrest. Patient was said to be at home taking a shower when he suddenly collapsed and CPR was immediately started. Upon arrival of EMS patient was said to be pulseless and apneic. Per EMS, patient was given epinephrine and Narcan without any significant improvement was subsequently given sodium bicarb and calcium, he had multiple rounds of epinephrine and eventually had return of spontaneous circulation. Hospital Course to date: 12/05/20- Patient is intubated and on low dose fentynal, RASS-5, pupils are dilated and nonreactive with neg gag and cough. High temp 107.4, sepsis protocol initiated, Stat CT head, lactic, and procal ordered. ID & Neuro surgery consulted. #Neuro: Acute Encephalopathy Toxic vs Metabolic #H/o Substance abuse - Intubated and sedated on low dose propofol and fentynal, RASS -5 - Pupil are dilated, no gag nor cough - Initial 12/04 CT head/Brain-No acute intracranial abnormality. Acute Rt. maxillary sinusitis - 12/04 Tox screen + amphetamine - Stat repeat CT head w/o con - EEG and MRI brain pending - Neuro consulted - Neuro Surgery consulted #s/p Cardiac Arrest with spontaneous circulation #Dilated Cardiomyopathy #Lt. Bundle Brunch Block #Hypotension - 12/04 Echo EF 10 to 15% - 12/04 Tro<0.010 - ST in the 120-130s, Amio gtt D/C - Hypotensive, 1.5L NS bolus given - Vasopressors initiated, Titrate pressors for MAP goal above 65 - Repeat EKG pending - Continue VTE proph: Heparin SubQ - Cardio on consult #Acute Respiratory Failure 2/2 Pneumonitis vs Aspiration PNA, COVID PUI - 12/04 ETT. Vent setting: AC- 30%,6,24,450 - This am ABG noted - 12/04 CT chest- possible left lower lobe pneumonitis, minimal Rt. sided pneumonitis - COVID swab pending - On empiric IV ABx - Continue supplemental O2 for SPO2 goal>92% - CCM is following #GI: Transaminitis - AST 77, ALT 72, ALk phos 64 - COntinue to monitor LFTs - NGT inserted - TF initiated, advance to goal as tolerated - Am labs ordered #SAURABH (Acute Kidney Injury) #Hyperkalemia - Cr up from 1.9 to 2.7, Initial cr. is unknown - 12/04 Renal US shows slight increased echogenicity of the right kidney which can be seen with medical renal disease - Received 1.5L NS bolus - X1 dose of Kayaxate - No UOP documented at this time - Continue to monitor renal function and electrolytes, am labs ordered - Avoid Nephrotoxins - Nephro on consult #ID: Sepsis possibly Pneumonitis vs aspiration PNA #COVID PUI - 12/04 Ddimer >94254; CRP 2.8; LDH 452; Ferritin 239.5 - 12/04 Sputum cult; pending, B.cultX2: pending - TMAX 107.4, cooling therapy initiated - COVID swab is pending - Lactic and procal ordered - Sepsis protocol initiated - on Empiric Abx- ceftriaxone and vancomycin - ID consulted #Endo: Hyperglycemia - Continue SSI - Avoid hypoglycemia The high probability of a clinically significant, sudden or life threatening deterioration of the [neuro, Pulmo, ID] system(s) required my full and direct attention, intervention and personal management. The aggregate critical care time was [90] minutes. This time is in addition to time spent performing rep orted procedures but includes the following: [x] Data Review and interpretation [x] Patient assessment and monitoring of vital signs [x] Documentation [x] Medication orders and management I saw and evaluated the patient. Discussed with the nurse practitioner and agree with their findings and plan as documented in this note. Disposition Plan: ICU Total Time Spent with Patient (Minutes): 90 History Interval history: Patient seen and examined, patient is intubated and on lose dose sedation, RASS-5, pupils are dilated and nonreactive with neg gag and cough. Per RN, patient was tachycardic overnight HR in the high 150s, amio gtt was started, then patient spike high temp this morning 107.4, Blood culture was drawn, IV ABx initiated, antipyretics were given and patient was placed on a cooling blanket Hospitalist Physical - Constitutional Vitals: Temp Pulse Resp BP Pulse Ox 102.8 F H 115 H 25 H 78/31 99 12/05/20 08:45 12/05/20 08:50 12/05/20 08:50 12/05/20 08:50 12/05/20 08:50 General appearance: Present: no acute distress, other (intubated on the vent) - Respiratory Respiratory effort: normal Respiratory: bilateral: diminished - Cardiovascular Rhythm: regular (BBB noted) Heart Sounds: Present: S1 & S2 - Extremities Extremities: pulses intact, pulses symmetrical Extremity abnormal: edema - Peripheral Assessment Generalized Edema Type: Non-pitting Edema Degree: 1+ Capillary Refill: < 3 seconds Skin Temperature: Warm Peripheral Pulses: within normal limits - Abdominal General gastrointestinal: soft, non-tender, hypoactive bowel sounds - Integumentary Integumentary: Present: warm, dry, normal turgor - Psychiatric Psychiatric: other (Intubated and sedated) - Neurologic Neurologic: other (dilated and nonreactive pupils, no gag nor cough appreciated, no movement to any stimuli) - Allied Health Allied health notes reviewed: nursing HEART Score - HEART Score Troponin: Troponin T < 0.010 ng/mL (0.00-0.029) 12/04/20 02:50 Results - Labs CBC & Chem 7: 12/05/20 04:39 12/05/20 04:39 Labs: Laboratory Last Values WBC 20.1 K/mm3 (4.5-11.0) H 12/05/20 04:39 RBC 5.31 M/mm3 (3.65-5.03) H 12/05/20 04:39 Hgb 16.2 gm/dl (11.8-15.2) H 12/05/20 04:39 Hct 48.2 % (35.5-45.6) H 12/05/20 04:39 MCV 91 fl (84-94) 12/05/20 04:39 MCH 31 pg (28-32) 12/05/20 04:39 MCHC 34 % (32-34) 12/05/20 04:39 RDW 15.1 % (13.2-15.2) 12/05/20 04:39 Plt Count 188 K/mm3 (140-440) 12/05/20 04:39 Lymph % (Auto) 7.3 % (13.4-35.0) L 12/05/20 04:39 [place] % (Auto) 8.4 % (0.0-7.3) H 12/05/20 04:39 Eos % (Auto) 0.0 % (0.0-4.3) 12/05/20 04:39 Baso % (Auto) 0.1 % (0.0-1.8) 12/05/20 04:39 Lymph # (Auto) 1.5 K/mm3 (1.2-5.4) 12/05/20 04:39 [place] # (Auto) 1.7 K/mm3 (0.0-0.8) H 12/05/20 04:39 Eos # (Auto) 0.0 K/mm3 (0.0-0.4) 12/05/20 04:39 Baso # (Auto) 0.0 K/mm3 (0.0-0.1) 12/05/20 04:39 Add Manual Diff Complete 12/04/20 02:50 Total Counted 100 12/04/20 02:50 Seg Neutrophils % 84.2 % (40.0-70.0) H 12/05/20 04:39 Seg Neuts % (Manual) 26.0 % (40.0-70.0) L 12/04/20 02:50 Lymphocytes % (Manual) 70.0 % (13.4-35.0) H 12/04/20 02:50 Monocytes % (Manual) 2.0 % (0.0-7.3) 12/04/20 02:50 Eosinophils % (Manual) 2.0 % (0.0-4.3) 12/04/20 02:50 Nucleated RBC % Not Reportable 12/04/20 02:50 Seg Neutrophils # 16.9 K/mm3 (1.8-7.7) H 12/05/20 04:39 Seg Neutrophils # Man 2.5 K/mm3 (1.8-7.7) 12/04/20 02:50 Band Neutrophils # 0.0 K/mm3 12/04/20 02:50 Lymphocytes # (Manual) 6.9 K/mm3 (1.2-5.4) H 12/04/20 02:50 Abs React Lymphs (Man) 0.0 K/mm3 12/04/20 02:50 Monocytes # (Manual) 0.2 K/mm3 (0.0-0.8) 12/04/20 02:50 Eosinophils # (Manual) 0.2 K/mm3 (0.0-0.4) 12/04/20 02:50 Basophils # (Manual) 0.0 K/mm3 (0.0-0.1) 12/04/20 02:50 Metamyelocytes # 0.0 K/mm3 12/04/20 02:50 Myelocytes # 0.0 K/mm3 12/04/20 02:50 Promyelocytes # 0.0 K/mm3 12/04/20 02:50 Blast Cells # 0.0 K/mm3 12/04/20 02:50 WBC Morphology Not Reportable 12/04/20 02:50 Hypersegmented Neuts Not Reportable 12/04/20 02:50 Hyposegmented Neuts Not Reportable 12/04/20 02:50 Hypogranular Neuts Not Reportable 12/04/20 02:50 Smudge Cells Not Reportable 12/04/20 02:50 Toxic Granulation Not Reportable 12/04/20 02:50 Toxic Vacuolation Not Reportable 12/04/20 02:50 Dohle Bodies Not Reportable 12/04/20 02:50 Pelger-Huet Anomaly Not Reportable 12/04/20 02:50 Zhou Rods Not Reportable 12/04/20 02:50 Platelet Estimate Consistent w auto 12/04/20 02:50 Clumped Platelets Not Reportable 12/04/20 02:50 Plt Clumps, EDTA Not Reportable 12/04/20 02:50 Large Platelets Not Reportable 12/04/20 02:50 Giant Platelets Not Reportable 12/04/20 02:50 Platelet Satelliting Not Reportable 12/04/20 02:50 Plt Morphology Comment Not Reportable 12/04/20 02:50 RBC Morphology Normal 12/04/20 02:50 Dimorphic RBCs Not Reportable 12/04/20 02:50 Polychromasia Not Reportable 12/04/20 02:50 Hypochromasia Not Reportable 12/04/20 02:50 Poikilocytosis Not Reportable 12/04/20 02:50 Anisocytosis Not Reportable 12/04/20 02:50 Microcytosis Not Reportable 12/04/20 02:50 Macrocytosis Not Reportable 12/04/20 02:50 Spherocytes Not Reportable 12/04/20 02:50 Pappenheimer Bodies Not Reportable 12/04/20 02:50 Sickle Cells Not Reportable 12/04/20 02:50 Target Cells Not Reportable 12/04/20 02:50 Tear Drop Cells Not Reportable 12/04/20 02:50 Ovalocytes Not Reportable 12/04/20 02:50 Helmet Cells Not Reportable 12/04/20 02:50 Long-Jauc[place] Bodies Not Reportable 12/04/20 02:50 Mobile Rings Not Reportable 12/04/20 02:50 [place]well Cells Not Reportable 12/04/20 02:50 Bite Cells Not Reportable 12/04/20 02:50 Crenated Cell Not Reportable 12/04/20 02:50 Elliptocytes Not Reportable 12/04/20 02:50 Acanthocytes (Spur) Not Reportable 12/04/20 02:50 Rouleaux Not Reportable 12/04/20 02:50 Hemoglobin C Crystals Not Reportable 12/04/20 02:50 Schistocytes Not Reportable 12/04/20 02:50 Malaria parasites Not Reportable 12/04/20 02:50 Konrad Bodies Not Reportable 12/04/20 02:50 Hem Pathologist Commnt No 12/04/20 02:50 PT 17.8 Sec. (12.2-14.9) H 12/05/20 04:39 INR 1.40 (0.87-1.13) H 12/05/20 04:39 D-Dimer > 05396 ng/mlDDU (0-234) H 12/04/20 15:11 ABG pH 7.349 (7.320-7.450) 12/05/20 03:30 POC ABG pCO2 36.2 mmHg (32.0-48.0) 12/05/20 03:30 ABG pCO2 30.9 mm Hg 12/04/20 13:45 POC ABG pO2 86.7 mmHg (83-108) 12/05/20 03:30 ABG pO2 128.7 mm Hg (80.0-90.0) H 12/04/20 13:45 POC ABG HCO3 19.5 12/05/20 03:30 ABG HCO3 20.1 mmol/L (20.0-26.0) 12/04/20 13:45 ABG O2 Saturation 96.7 (0-100) 12/05/20 03:30 ABG O2 Content 22.1 (0.0-44) 12/04/20 04:51 POC ABG Base Excess -5.3 12/05/20 03:30 ABG Base Excess -2.7 mmol/L (-2.0-3.0) L 12/04/20 13:45 ABG Hemoglobin 16.8 (12.0-17.5) 12/05/20 03:30 ABG Oxyhemoglobin 95.6 (94-98) 12/05/20 03:30 ABG Carboxyhemoglobin 0.5 % (0.0-5.0) 12/04/20 13:45 ABG Methemoglobin 0.3 (0.0-1.5) 12/05/20 03:30 ABG Sodium 137.9 mmol/L (136.0-145.0) 12/05/20 03:30 ABG Potassium 5.0 mmol/L (3.40-4.50) H 12/05/20 03:30 ABG Chloride 108.0 mmol/L (98-107) H 12/05/20 03:30 ABG Glucose 132 mg/dL (65-95) H 12/05/20 03:30 Oxyhemoglobin 98.2 % (95.0-99.0) 12/04/20 13:45 Carboxyhemoglobin 0.8 (0.5-1.5) 12/05/20 03:30 FiO2 30.0 % 12/04/20 13:45 FiO2 % 30.0 12/05/20 03:30 Sodium 141 mmol/L (137-145) 12/05/20 04:39 Potassium 5.4 mmol/L (3.6-5.0) H D 12/05/20 04:39 Chloride 109.5 mmol/L (98-107) H 12/05/20 04:39 Carbon Dioxide 22 mmol/L (22-30) 12/05/20 04:39 Anion Gap 15 mmol/L 12/05/20 04:39 BUN 41 mg/dL (9-20) H 12/05/20 04:39 Creatinine 2.7 mg/dL (0.8-1.3) H 12/05/20 04:39 Estimated GFR 26 ml/min 12/05/20 04:39 BUN/Creatinine Ratio 15 % 12/05/20 04:39 Glucose 134 mg/dL (75-100) H 12/05/20 04:39 POC Glucose 120 mg/dL (70-105) H 12/05/20 05:35 Hemoglobin A1c 5.6 % (4-6) 12/04/20 02:50 Calcium 8.0 mg/dL (8.4-10.2) L D 12/05/20 04:39 Magnesium 2.80 mg/dL (1.7-2.3) H 12/04/20 02:50 Ferritin 239.5 ng/mL (30.0-300.0) 12/04/20 15:11 Total Bilirubin 0.50 mg/dL (0.1-1.2) 12/04/20 02:50 AST 77 units/L (5-40) H 12/04/20 02:50 ALT 72 units/L (7-56) H 12/04/20 02:50 Alkaline Phosphatase 64 units/L (35-129) 12/04/20 02:50 Lactate Dehydrogenase 452 units/L (91-180) H 12/04/20 15:11 Troponin T < 0.010 ng/mL (0.00-0.029) 12/04/20 02:50 C-Reactive Protein 2.80 mg/dL (0.00-1.30) H 12/04/20 15:11 Total Protein 5.8 g/dL (6.3-8.2) L 12/04/20 02:50 Albumin 4.0 g/dL (3.9-5) 12/04/20 02:50 Albumin/Globulin Ratio 2.2 % 12/04/20 02:50 Arterial Blood Glucose 132 mg/dL (65-95) H 12/05/20 03:30 Urine Color Krista (Yellow) 12/05/20 06:01 Urine Turbidity Cloudy (Clear) 12/05/20 06:01 Urine pH 5.0 (5.0-7.0) 12/05/20 06:01 Ur Specific [place] 1.029 (1.003-1.030) 12/05/20 06:01 Urine Protein 100 mg/dl mg/dL (Negative) 12/05/20 06:01 Urine Glucose (UA) Neg mg/dL (Negative) 12/05/20 06:01 Urine Ketones Tr mg/dL (Negative) 12/05/20 06:01 Urine Blood Sm (Negative) 12/05/20 06:01 Urine Nitrite Neg (Negative) 12/05/20 06:01 Urine Bilirubin Neg (Negative) 12/05/20 06:01 Urine Urobilinogen < 2.0 mg/dL (<2.0) 12/05/20 06:01 Ur Leukocyte Esterase Tr (Negative) 12/05/20 06:01 Urine WBC (Auto) 20.0 /HPF (0.0-6.0) H 12/05/20 06:01 Urine RBC (Auto) 72.0 /HPF (0.0-6.0) 12/05/20 06:01 U Epithel Cells (Auto) < 1.0 /HPF (0-13.0) 12/05/20 06:01 Urine Bacteria (Auto) 1+ /HPF (Negative) 12/05/20 06:01 Granular Casts 11 /LPF 12/05/20 06:01 Urine Mucus 1+ /HPF 12/05/20 06:01 Urine Opiates Screen Negative 12/04/20 Unknown Urine Opiates Screen Negative 12/04/20 Unknown Urine Methadone Screen Negative 12/04/20 Unknown Urine Methadone Screen Negative 12/04/20 Unknown Ur Barbiturates Screen Negative 12/04/20 Unknown Ur Barbiturates Screen Negative 12/04/20 Unknown Ur Phencyclidine Scrn Negative 12/04/20 Unknown Ur Phencyclidine Scrn Negative 12/04/20 Unknown Ur Amphetamines Screen Negative 12/04/20 Unknown Ur Amphetamines Screen Positive 12/04/20 Unknown U Benzodiazepines Scrn Negative 12/04/20 Unknown U Benzodiazepines Scrn Negative 12/04/20 Unknown Urine Cocaine Screen Negative 12/04/20 Unknown Urine Cocaine Screen Negative 12/04/20 Unknown U Marijuana (THC) Screen Negative 12/04/20 Unknown U Marijuana (THC) Screen Negative 12/04/20 Unknown Drugs of Abuse Note Disclamer 12/04/20 Unknown Drugs of Abuse Note Disclamer 12/04/20 Unknown Plasma/Serum Alcohol < 0.01 % (0-0.07) 12/04/20 02:50 Microbiology: Microbiology 12/05/20 06:12 Peripheral/Venous Blood Culture - Preliminary Culture in Progress 12/05/20 06:16 Peripheral/Venous Blood Culture - Preliminary Culture in Progress 12/04/20 04:00 Tracheal Aspirate Sputum Culture - Preliminary Active Medications - Current Medications Current Medications: Generic Name Dose Route Start Last Admin Trade Name Freq PRN Reason Stop Dose Admin Acetaminophen 650 mg 12/04/20 04:17 12/05/20 05:30 Acetaminophen 650 Mg Rect Supp GA 650 mg Q6H PRN Administration Pain MILD(1-3)/Fever >100.5/CALLEJAS Acetaminophen 650 mg 12/05/20 08:09 Acetaminophen 325 Mg Tab PO Q6H PRN Pain, Mild (1-3) Lipase/Protease/Amylase 1 each 12/04/20 15:31 Lipase 10,500/Protease 25,000/Amylase 43,750 (Units) Dr Cap FEEDTUBE PRN PRN For Clogged Feeding Tube Dextrose 50 ml 12/04/20 07:47 Dextrose 50% In Water (25gm) 50 Ml Syringe IV Q30MIN PRN Hypoglycemia Protocol Famotidine 10 mg 12/05/20 10:00 Famotidine 20 Mg/2 Ml Inj IV BID GLEN Fentanyl 50 mcg 12/04/20 13:37 Fentanyl 100 Mcg/2 Ml Inj IV Q10MIN PRN ANALGESIA Heparin Sodium (Porcine) 5,000 unit 12/04/20 06:00 12/05/20 05:40 Heparin 5,000 Unit/1 Ml Vial SUB-Q 5,000 unit Q8HR GLEN Administration Hydromorphone HCl 0.25 mg 12/05/20 08:09 Hydromorphone 1 Mg/1 Ml Inj IV Q4H PRN Pain, Moderate (4-6) Hydrophilic Ointment 1 applic 12/04/20 14:11 Lip Therapy Vaseline TP Q2HR PRN Dry Lips Propofol 1,000 mg in 100 mls @ 1.95 mls/hr 12/04/20 06:00 12/05/20 10:19 Diprivan 10 Mg/Ml IV 10 mcg/kg/min TITR GLEN 3.9 mls/hr Titration Protocol 5 MCG/KG/MIN Fentanyl Citrate 2,000 mcg in 100 mls @ 3.25 mls/hr 12/04/20 14:00 12/05/20 10:05 Fentanyl Drip Premix IV 1 mcg/kg/hr TITR GLEN 3.25 mls/hr Titration Protocol 1 MCG/KG/HR Ceftriaxone Sodium 2 gm in 100 mls @ 200 mls/hr 12/05/20 09:00 Rocephin/Ns 2 Gm/100 Ml IV Q12H GLEN Protocol Norepinephrine 4 mg in 250 mls @ 7.5 mls/hr 12/05/20 10:00 12/05/20 10:17 Levophed Drip 4 Mg/Ns 250 Ml IV 25 mcg/min TITR GLEN 93.75 mls/hr Titration Protocol 2 MCG/MIN Insulin Human Lispro 0 unit 12/04/20 08:00 12/05/20 05:45 Insulin Lispro 100 Unit/Ml SUB-Q Not Given Q4HR GLEN Protocol Multi-Ingred Cream/Lotion/Oil/Oint 1 applic 12/04/20 14:11 Mineral Oil/Petrolatum, White Ophth Oint 3.5 Gm OU Q4HR PRN Dry Eye(s) Senna/Docusate Sodium 1 tab 12/04/20 22:00 12/04/20 22:56 Sennosides/Docusate Sodium 8.6/50 Mg Tab FEEDTUBE 1 tab BID GLEN Administration Simple Syrup 15 ml 12/04/20 15:31 Simple Syrup 15 Ml FEEDTUBE PRN PRN Hypoglycemia Simple Syrup 30 ml 12/04/20 15:31 Simple Syrup 15 Ml FEEDTUBE PRN PRN Hypoglycemia Sodium Bicarbonate 325 mg 12/04/20 15:31 Sodium Bicarbonate 325 Mg Tab FEEDTUBE PRN PRN For Clogged Feeding Tube Sodium Chloride 10 ml 12/04/20 10:00 12/04/20 21:39 Sodium Chloride 0.9% 10 Ml Flush Syringe IV 10 ml BID GLEN Administration Sodium Chloride 10 ml 12/04/20 04:17 Sodium Chloride 0.9% 10 Ml Flush Syringe IV PRN PRN LINE FLUSH Sodium Polystyrene Sulfonate 30 gm 12/05/20 09:30 Sodium Polystyrene 15 Gm/60 Ml Oral Liqd PO 12/05/20 13:30 [id number] NR Nutrition/Malnutrition Assess - Dietary Evaluation Nutrition/Malnutrition Findings: Nutrition Notes Start: 12/04/20 11:03 Freq: Status: Active Protocol: Document 12/04/20 11:03 GB (Rec: 12/04/20 11:46 GB [id number]) Nutrition Notes Need for Assessment generated from: MD Order Initial or Follow up Assessment Current Diagnosis Heart Failure Other Pertinent Diagnosis Endotracheal tube Current Diet NPO Labs/Tests 12/04; K 3.5, Creat 1.9, BUN 21 , Glu 362, AST 77, ALT 72 POC tracking shows Glu improving Pertinent Medications Propofol 1.9 ml/h (51 Kcal/d) Height 5 ft 7 in Weight 65 kg [place] Body Weight (kg) 67.27 BMI 22.4 Weight change and time frame No reported weight change Weight Status Appropriate Subjective/Other Information If intubation continues for 24 -48 hrs, recommend start tube feeding Percent of energy/protein needs met: Intubated, NPO, 0% Burn Absent Trauma Absent GI Symptoms None Food Allergy No Skin Integrity/Comment Per chart normal Current % PO Other Minimum of two criteria No #1 Nutrition Diagnosis Predicted suboptimal energy intake Etiology [place] Arrest As Evidenced by Signs and Symptoms NPO diet and intubation Is patient on ventilator? Yes Is Patient Ambulatory and/or Out of Bed No REE-([place]-confined to bed) [phone] Kcal/Kg value to use for calculation 30 Approximate Energy Requirements Using 1950 kcal/Kg Calculation Used for Recommendations Kcal/kg Additional Notes Protein 1.0 -1.4 gr/Kg @65 Kg (65-91 gr) Fluids 1 ml/Kcal or per MD Nutrition Intervention Change Diet Order: Continue NPO as intubated Nutrition Support: Recommend tube feed Glucerna 1 .2 with goal rate 65 ml/hr Start rate 15 ml/hr, increase 10 ml per 8 hrs as tolerated to goal Flush 25 ml/hr Kcal 1,872 Protein (gm) 94 Fat (gm) 94 Fluid (mL) 1,256 Education Handouts Provided Not apropiate to education at this time due to intubation Goal #1 Tube feed start if intubation continues for 24-48 hrs Goal #2 Tolerate tube feed at goal rate 65ml/hr if started Follow-Up By: 12/06/20 Additional Comments Follow up for tube feed start Glucerna 1.2, intubation status <LESLI MORLEY - Last Filed: 12/06/20 07:27> Assessment and Plan Assessment and plan: I saw and evaluated the patient. I agree with the findings and the plan of care as documented in the Nurse Practitioner's~note, with the following corrections and additions. Neurosurgery was consulted following findings on Imaging study which was significant for cerebral edema and possible herniation. Family was updated about the grave profnosis and came to visit the patient. Life link was notified. Hospitalist Physical - Constitutional Vitals: Temp Pulse Resp BP Pulse Ox 97.6 F 93 H 25 H 110/76 100 12/06/20 07:22 12/06/20 06:30 12/06/20 06:30 12/06/20 06:30 12/06/20 06:30 HEART Score - HEART Score Troponin: Troponin T < 0.010 ng/mL (0.00-0.029) 12/04/20 02:50 Results - Labs CBC & Chem 7: 12/06/20 04:20 12/06/20 04:20 Labs: Laboratory Last Values WBC 13.7 K/mm3 (4.5-11.0) H 12/06/20 04:20 RBC 5.34 M/mm3 (3.65-5.03) H 12/06/20 04:20 Hgb 15.8 gm/dl (11.8-15.2) H 12/06/20 04:20 Hct 48.6 % (35.5-45.6) H 12/06/20 04:20 MCV 91 fl (84-94) 12/06/20 04:20 MCH 30 pg (28-32) 12/06/20 04:20 MCHC 33 % (32-34) 12/06/20 04:20 RDW 15.6 % (13.2-15.2) H 12/06/20 04:20 Plt Count 44 K/mm3 (140-440) L 12/06/20 04:20 Lymph % (Auto) 20.1 % (13.4-35.0) 12/06/20 04:20 [place] % (Auto) 4.1 % (0.0-7.3) 12/06/20 04:20 Eos % (Auto) 0.0 % (0.0-4.3) 12/06/20 04:20 Baso % (Auto) 0.4 % (0.0-1.8) 12/06/20 04:20 Lymph # (Auto) 2.8 K/mm3 (1.2-5.4) 12/06/20 04:20 [place] # (Auto) 0.6 K/mm3 (0.0-0.8) 12/06/20 04:20 Eos # (Auto) 0.0 K/mm3 (0.0-0.4) 12/06/20 04:20 Baso # (Auto) 0.1 K/mm3 (0.0-0.1) 12/06/20 04:20 Add Manual Diff Complete 12/04/20 02:50 Total Counted 100 12/04/20 02:50 Seg Neutrophils % 75.4 % (40.0-70.0) H 12/06/20 04:20 Seg Neuts % (Manual) 26.0 % (40.0-70.0) L 12/04/20 02:50 Lymphocytes % (Manual) 70.0 % (13.4-35.0) H 12/04/20 02:50 Monocytes % (Manual) 2.0 % (0.0-7.3) 12/04/20 02:50 Eosinophils % (Manual) 2.0 % (0.0-4.3) 12/04/20 02:50 Nucleated RBC % Not Reportable 12/04/20 02:50 Seg Neutrophils # 10.3 K/mm3 (1.8-7.7) H 12/06/20 04:20 Seg Neutrophils # Man 2.5 K/mm3 (1.8-7.7) 12/04/20 02:50 Band Neutrophils # 0.0 K/mm3 12/04/20 02:50 Lymphocytes # (Manual) 6.9 K/mm3 (1.2-5.4) H 12/04/20 02:50 Abs React Lymphs (Man) 0.0 K/mm3 12/04/20 02:50 Monocytes # (Manual) 0.2 K/mm3 (0.0-0.8) 12/04/20 02:50 Eosinophils # (Manual) 0.2 K/mm3 (0.0-0.4) 12/04/20 02:50 Basophils # (Manual) 0.0 K/mm3 (0.0-0.1) 12/04/20 02:50 Metamyelocytes # 0.0 K/mm3 12/04/20 02:50 Myelocytes # 0.0 K/mm3 12/04/20 02:50 Promyelocytes # 0.0 K/mm3 12/04/20 02:50 Blast Cells # 0.0 K/mm3 12/04/20 02:50 WBC Morphology Not Reportable 12/04/20 02:50 Hypersegmented Neuts Not Reportable 12/04/20 02:50 Hyposegmented Neuts Not Reportable 12/04/20 02:50 Hypogranular Neuts Not Reportable 12/04/20 02:50 Smudge Cells Not Reportable 12/04/20 02:50 Toxic Granulation Not Reportable 12/04/20 02:50 Toxic Vacuolation Not Reportable 12/04/20 02:50 Dohle Bodies Not Reportable 12/04/20 02:50 Pelger-Huet Anomaly Not Reportable 12/04/20 02:50 Zhou Rods Not Reportable 12/04/20 02:50 Platelet Estimate Consistent w auto 12/04/20 02:50 Clumped Platelets Not Reportable 12/04/20 02:50 Plt Clumps, EDTA Not Reportable 12/04/20 02:50 Large Platelets Not Reportable 12/04/20 02:50 Giant Platelets Not Reportable 12/04/20 02:50 Platelet Satelliting Not Reportable 12/04/20 02:50 Plt Morphology Comment Not Reportable 12/04/20 02:50 RBC Morphology Normal 12/04/20 02:50 Dimorphic RBCs Not Reportable 12/04/20 02:50 Polychromasia Not Reportable 12/04/20 02:50 Hypochromasia Not Reportable 12/04/20 02:50 Poikilocytosis Not Reportable 12/04/20 02:50 Anisocytosis Not Reportable 12/04/20 02:50 Microcytosis Not Reportable 12/04/20 02:50 Macrocytosis Not Reportable 12/04/20 02:50 Spherocytes Not Reportable 12/04/20 02:50 Pappenheimer Bodies Not Reportable 12/04/20 02:50 Sickle Cells Not Reportable 12/04/20 02:50 Target Cells Not Reportable 12/04/20 02:50 Tear Drop Cells Not Reportable 12/04/20 02:50 Ovalocytes Not Reportable 12/04/20 02:50 Helmet Cells Not Reportable 12/04/20 02:50 Long-[place] Bodies Not Reportable 12/04/20 02:50 Mobile Rings Not Reportable 12/04/20 02:50 Farwell Cells Not Reportable 12/04/20 02:50 Bite Cells Not Reportable 12/04/20 02:50 Crenated Cell Not Reportable 12/04/20 02:50 Elliptocytes Not Reportable 12/04/20 02:50 Acanthocytes (Spur) Not Reportable 12/04/20 02:50 Rouleaux Not Reportable 12/04/20 02:50 Hemoglobin C Crystals Not Reportable 12/04/20 02:50 Schistocytes Not Reportable 12/04/20 02:50 Malaria parasites Not Reportable 12/04/20 02:50 [place] Bodies Not Reportable 12/04/20 02:50 Hem Pathologist Commnt No 12/04/20 02:50 PT 17.3 Sec. (12.2-14.9) H 12/06/20 04:20 INR 1.35 (0.87-1.13) H 12/06/20 04:20 D-Dimer > 40817 ng/mlDDU (0-234) H 12/04/20 15:11 ABG pH 7.369 (7.320-7.450) 12/06/20 05:00 POC ABG pCO2 31.5 mmHg (32.0-48.0) L 12/06/20 05:00 ABG pCO2 30.9 mm Hg 12/04/20 13:45 POC ABG pO2 144.6 mmHg (83-108) H 12/06/20 05:00 ABG pO2 128.7 mm Hg (80.0-90.0) H 12/04/20 13:45 POC ABG HCO3 17.8 12/06/20 05:00 ABG HCO3 20.1 mmol/L (20.0-26.0) 12/04/20 13:45 ABG O2 Saturation 99.0 (0-100) 12/06/20 05:00 ABG O2 Content 22.1 (0.0-44) 12/04/20 04:51 POC ABG Base Excess -6.2 12/06/20 05:00 ABG Base Excess -2.7 mmol/L (-2.0-3.0) L 12/04/20 13:45 ABG Hemoglobin 16.1 (12.0-17.5) 12/06/20 05:00 ABG Oxyhemoglobin 97.9 (94-98) 12/06/20 05:00 ABG Carboxyhemoglobin 0.5 % (0.0-5.0) 12/04/20 13:45 ABG Methemoglobin 0 (0.0-1.5) 12/06/20 05:00 ABG Sodium 151.0 mmol/L (136.0-145.0) H 12/06/20 05:00 ABG Potassium 4.6 mmol/L (3.40-4.50) H 12/06/20 05:00 ABG Chloride 124.0 mmol/L (98-107) H 12/06/20 05:00 ABG Glucose 136 mg/dL (65-95) H 12/06/20 05:00 Oxyhemoglobin 98.2 % (95.0-99.0) 12/04/20 13:45 Carboxyhemoglobin 1.1 (0.5-1.5) 12/06/20 05:00 FiO2 30.0 % 12/04/20 13:45 FiO2 % 30.0 12/06/20 05:00 Sodium 152 mmol/L (137-145) H 12/06/20 04:20 Potassium 5.0 mmol/L (3.6-5.0) 12/06/20 04:20 Chloride 126.1 mmol/L (98-107) H 12/06/20 04:20 Carbon Dioxide 21 mmol/L (22-30) L 12/06/20 04:20 Anion Gap 10 mmol/L 12/06/20 04:20 BUN 46 mg/dL (9-20) H 12/06/20 04:20 Creatinine 2.2 mg/dL (0.8-1.3) H 12/06/20 04:20 Estimated GFR 33 ml/min 12/06/20 04:20 BUN/Creatinine Ratio 21 % 12/06/20 04:20 Glucose 136 mg/dL (75-100) H 12/06/20 04:20 POC Glucose 99 mg/dL (70-105) 12/06/20 06:05 Hemoglobin A1c 5.6 % (4-6) 12/04/20 02:50 Lactic Acid 1.10 mmol/L (0.7-2.0) 12/05/20 12:00 Calcium 8.4 mg/dL (8.4-10.2) 12/06/20 04:20 Magnesium 2.80 mg/dL (1.7-2.3) H 12/04/20 02:50 Ferritin 239.5 ng/mL (30.0-300.0) 12/04/20 15:11 Total Bilirubin 0.70 mg/dL (0.1-1.2) 12/06/20 04:20 AST 65 units/L (5-40) H 12/06/20 04:20 ALT 62 units/L (7-56) H 12/06/20 04:20 Alkaline Phosphatase 53 units/L (35-129) 12/06/20 04:20 Lactate Dehydrogenase 452 units/L (91-180) H 12/04/20 15:11 Total Creatine Kinase 311 units/L (55-170) H 12/06/20 04:20 Troponin T < 0.010 ng/mL (0.00-0.029) 12/04/20 02:50 C-Reactive Protein 2.80 mg/dL (0.00-1.30) H 12/04/20 15:11 Total Protein 5.6 g/dL (6.3-8.2) L 12/06/20 04:20 Albumin 3.3 g/dL (3.9-5) L 12/06/20 04:20 Albumin/Globulin Ratio 1.4 % 12/06/20 04:20 Procalcitonin 70.22 ng/mL (<0.15) 12/05/20 12:25 Arterial Blood Glucose 136 mg/dL (65-95) H 12/06/20 05:00 Arterial Blood Ionized Calcium 4.8 mg/dL (4.6-5.3) 12/06/20 05:00 Urine Color Krista (Yellow) 12/05/20 06:01 Urine Turbidity Cloudy (Clear) 12/05/20 06:01 Urine pH 5.0 (5.0-7.0) 12/05/20 06:01 Ur Specific [place] 1.029 (1.003-1.030) 12/05/20 06:01 Urine Protein 100 mg/dl mg/dL (Negative) 12/05/20 06:01 Urine Glucose (UA) Neg mg/dL (Negative) 12/05/20 06:01 Urine Ketones Tr mg/dL (Negative) 12/05/20 06:01 Urine Blood Sm (Negative) 12/05/20 06:01 Urine Nitrite Neg (Negative) 12/05/20 06:01 Urine Bilirubin Neg (Negative) 12/05/20 06:01 Urine Urobilinogen < 2.0 mg/dL (<2.0) 12/05/20 06:01 Ur Leukocyte Esterase Tr (Negative) 12/05/20 06:01 Urine WBC (Auto) 20.0 /HPF (0.0-6.0) H 12/05/20 06:01 Urine RBC (Auto) 72.0 /HPF (0.0-6.0) 12/05/20 06:01 U Epithel Cells (Auto) < 1.0 /HPF (0-13.0) 12/05/20 06:01 Urine Bacteria (Auto) 1+ /HPF (Negative) 12/05/20 06:01 Granular Casts 11 /LPF 12/05/20 06:01 Urine Mucus 1+ /HPF 12/05/20 06:01 Random Vancomycin 4.6 ug/mL (0-40.0) 12/06/20 04:40 Urine Opiates Screen Negative 12/04/20 Unknown Urine Methadone Screen Negative 12/04/20 Unknown Ur Barbiturates Screen Negative 12/04/20 Unknown Ur Phencyclidine Scrn Negative 12/04/20 Unknown Ur Amphetamines Screen Positive 12/04/20 Unknown U Benzodiazepines Scrn Negative 12/04/20 Unknown Urine Cocaine Screen Negative 12/04/20 Unknown U Marijuana (THC) Screen Negative 12/04/20 Unknown Drugs of Abuse Note Disclamer 12/04/20 Unknown Plasma/Serum Alcohol < 0.01 % (0-0.07) 12/04/20 02:50 Coronavirus (PCR) Negative (Negative) 12/05/20 Unknown Blood Type O POSITIVE 12/05/20 12:25 Antibody Screen Negative 12/05/20 12:25 Microbiology: Microbiology 12/05/20 06:12 Peripheral/Venous Blood Culture - Preliminary NO GROWTH AFTER 24 HOURS 12/05/20 06:16 Peripheral/Venous Blood Culture - Preliminary NO GROWTH AFTER 24 HOURS 12/04/20 04:00 Tracheal Aspirate Sputum Culture - Preliminary Lopez/IV: Voiding Method Indwelling Catheter Active Medications - Current Medications Current Medications: Generic Name Dose Route Start Last Admin Trade Name Freq PRN Reason Stop Dose Admin Acetaminophen 650 mg 12/04/20 04:17 12/05/20 05:30 Acetaminophen 650 Mg Rect Supp GA 650 mg Q6H PRN Administration Pain MILD(1-3)/Fever >100.5/CALLEJAS Acetaminophen 650 mg 12/05/20 08:09 Acetaminophen 325 Mg Tab PO Q6H PRN Pain, Mild (1-3) Lipase/Protease/Amylase 1 each 12/04/20 15:31 Lipase 10,500/Protease 25,000/Amylase 43,750 (Units) Dr Cap FEEDTUBE PRN PRN For Clogged Feeding Tube Dextrose 50 ml 12/04/20 07:47 Dextrose 50% In Water (25gm) 50 Ml Syringe IV Q30MIN PRN Hypoglycemia Protocol Famotidine 10 mg 12/05/20 10:00 12/05/20 21:12 Famotidine 20 Mg/2 Ml Inj IV 10 mg BID GLEN Administration Fentanyl 50 mcg 12/04/20 13:37 Fentanyl 100 Mcg/2 Ml Inj IV Q10MIN PRN ANALGESIA Heparin Sodium (Porcine) 5,000 unit 12/04/20 06:00 12/06/20 05:06 Heparin 5,000 Unit/1 Ml Vial SUB-Q 5,000 unit Q8HR GLEN Administration Hydromorphone HCl 0.25 mg 12/05/20 08:09 Hydromorphone 1 Mg/1 Ml Inj IV Q4H PRN Pain, Moderate (4-6) Hydrophilic Ointment 1 applic 12/04/20 14:11 Lip Therapy Vaseline TP Q2HR PRN Dry Lips Propofol 1,000 mg in 100 mls @ 1.95 mls/hr 12/04/20 06:00 12/05/20 17:52 Diprivan 10 Mg/Ml IV 0 mcg/kg/min TITR GLEN 0 mls/hr Titration Protocol 5 MCG/KG/MIN Fentanyl Citrate 2,000 mcg in 100 mls @ 3.25 mls/hr 12/04/20 14:00 12/05/20 17:53 Fentanyl Drip Premix IV 0 mcg/kg/hr TITR GLEN 0 mls/hr Titration Protocol 1 MCG/KG/HR Norepinephrine 4 mg in 250 mls @ 7.5 mls/hr 12/05/20 10:00 12/06/20 04:40 Levophed Drip 4 Mg/Ns 250 Ml IV 10 mcg/min TITR GLEN 37.5 mls/hr Administration Protocol 2 MCG/MIN Ceftriaxone Sodium 2 gm in 100 mls @ 200 mls/hr 12/05/20 12:00 12/05/20 15:23 Rocephin/Ns 2 Gm/100 Ml IV 200 mls/hr Q24H GLEN Administration Protocol Sodium Chloride 500 mls @ 1 mls/hr 12/05/20 21:09 12/05/20 21:17 Nacl 0.9% 500 Ml IV 1 mls/hr DIRECT PRN Administration ARTERIAL LINE FLUSH Vasopressin 20 unit/ Sodium 101 mls @ 9.09 mls/hr 12/05/20 23:45 12/06/20 00:31 Chloride IV 0.03 units/min TITR GLEN 9.09 mls/hr Titration Protocol 0.03 UNITS/MIN Insulin Human Lispro 0 unit 12/05/20 12:00 12/06/20 06:27 Insulin Lispro 100 Unit/Ml SUB-Q Not Given Q6HR GLEN Protocol Multi-Ingred Cream/Lotion/Oil/Oint 1 applic 12/04/20 14:11 Mineral Oil/Petrolatum, White Ophth Oint 3.5 Gm OU Q4HR PRN Dry Eye(s) Senna/Docusate Sodium 1 tab 12/04/20 22:00 12/05/20 21:18 Sennosides/Docusate Sodium 8.6/50 Mg Tab FEEDTUBE Not Given BID GLEN Simple Syrup 15 ml 12/04/20 15:31 Simple Syrup 15 Ml FEEDTUBE PRN PRN Hypoglycemia Simple Syrup 30 ml 12/04/20 15:31 Simple Syrup 15 Ml FEEDTUBE PRN PRN Hypoglycemia Sodium Bicarbonate 325 mg 12/04/20 15:31 Sodium Bicarbonate 325 Mg Tab FEEDTUBE PRN PRN For Clogged Feeding Tube Sodium Chloride 10 ml 12/04/20 10:00 12/05/20 21:12 Sodium Chloride 0.9% 10 Ml Flush Syringe IV 10 ml BID GLEN Administration Sodium Chloride 10 ml 12/04/20 04:17 Sodium Chloride 0.9% 10 Ml Flush Syringe IV PRN PRN LINE FLUSH Nutrition/Malnutrition Assess - Dietary Evaluation Nutrition/Malnutrition Findings: Nutrition Notes Start: 12/04/20 11:03 Freq: Status: Active Protocol: Document 12/04/20 11:03 GB (Rec: 12/04/20 11:46 GB [id number]) Nutrition Notes Need for Assessment generated from: MD Order Initial or Follow up Assessment Current Diagnosis Heart Failure Other Pertinent Diagnosis Endotracheal tube Current Diet NPO Labs/Tests 12/04; K 3.5, Creat 1.9, BUN 21 , Glu 362, AST 77, ALT 72 POC tracking shows Glu improving Pertinent Medications Propofol 1.9 ml/h (51 Kcal/d) Height 5 ft 7 in Weight 65 kg [place] Body Weight (kg) 67.27 BMI 22.4 Weight change and time frame No reported weight change Weight Status Appropriate Subjective/Other Information If intubation continues for 24 -48 hrs, recommend start tube feeding Percent of energy/protein needs met: Intubated, NPO, 0% Burn Absent Trauma Absent GI Symptoms None Food Allergy No Skin Integrity/Comment Per chart normal Current % PO Other Minimum of two criteria No #1 Nutrition Diagnosis Predicted suboptimal energy intake Etiology [place] Arrest As Evidenced by Signs and Symptoms NPO diet and intubation Is patient on ventilator? Yes Is Patient Ambulatory and/or Out of Bed No REE-([place]-confined to bed) [phone] Kcal/Kg value to use for calculation 30 Approximate Energy Requirements Using 1950 kcal/Kg Calculation Used for Recommendations Kcal/kg Additional Notes Protein 1.0 -1.4 gr/Kg @65 Kg (65-91 gr) Fluids 1 ml/Kcal or per MD Nutrition Intervention Change Diet Order: Continue NPO as intubated Nutrition Support: Recommend tube feed Glucerna 1 .2 with goal rate 65 ml/hr Start rate 15 ml/hr, increase 10 ml per 8 hrs as tolerated to goal Flush 25 ml/hr Kcal 1,872 Protein (gm) 94 Fat (gm) 94 Fluid (mL) 1,256 Education Handouts Provided Not apropiate to education at this time due to intubation Goal #1 Tube feed start if intubation continues for 24-48 hrs Goal #2 Tolerate tube feed at goal rate 65ml/hr if started Follow-Up By: 12/06/20 Additional Comments Follow up for tube feed start Glucerna 1.2, intubation status
--- NOTE | 2020-12-05 11:08 | Consultation ---
History of Present Illness - Reason for Consult Consult date: 12/05/20 Sepsis Requesting physician: LESLI MORLEY - History of Present Illness The patient is a 45-year-old male with known history of substance abuse was admitted to the hospital yesterday following cardiac arrest at home. Upon EMS arrival, was apneic and pulseless, required ACLS and multiple rounds of epinephrine. Initial toxicology screen was negative, however repeat was positive for amphetamines. Initially afebrile, then started spiking fever as high as 107.5 F. Remains intubated on the vent. Unable to provide history. Initial CT chest showed possible left lower lobe pneumonitis and increased markings in the right lower lobe. Review of Systems: Unable to obtain Past History Past Medical History: No medical history, other (Not obtainble) Past Surgical History: Other (Not obtainble) Social history: other (Not obtainble) Family history: other (Not obtainble) Medications and Allergies Allergies Allergy/AdvReac Type Severity Reaction Status Date / Time No Known Allergies Allergy Unverified 12/05/17 21:05 Home Medications Medication Instructions Recorded Confirmed Last Taken Type Naloxone HCl [Narcan Nasal [place]] 4 mg NS PRN PRN #2 spray 06/02/19 Unknown Rx Active Meds: Active Medications Acetaminophen (Acetaminophen 650 Mg Rect Supp) 650 mg KS Q6H PRN PRN Reason: Pain MILD(1-3)/Fever >100.5/CALLEJAS Last Admin: 12/05/20 05:30 Dose: 650 mg Documented by: Acetaminophen (Acetaminophen 325 Mg Tab) 650 mg PO Q6H PRN PRN Reason: Pain, Mild (1-3) Lipase/Protease/Amylase (Lipase 10,500/Protease 25,000/Amylase 43,750 (Units) Dr Caballero) 1 each FEEDTUBE PRN PRN PRN Reason: For Clogged Feeding Tube Dextrose (Dextrose 50% In Water (25gm) 50 Ml Syringe) 50 ml IV Q30MIN PRN; Protocol PRN Reason: Hypoglycemia Famotidine (Famotidine 20 Mg/2 Ml Inj) 10 mg IV BID GLEN Fentanyl (Fentanyl 100 Mcg/2 Ml Inj) 50 mcg IV Q10MIN PRN PRN Reason: ANALGESIA Heparin Sodium (Porcine) (Heparin 5,000 Unit/1 Ml Vial) 5,000 unit SUB-Q Q8HR GLEN Last Admin: 12/05/20 05:40 Dose: 5,000 unit Documented by: Hydromorphone HCl (Hydromorphone 1 Mg/1 Ml Inj) 0.25 mg IV Q4H PRN PRN Reason: Pain, Moderate (4-6) Hydrophilic Ointment (Lip Therapy Vaseline) 1 applic TP Q2HR PRN PRN Reason: Dry Lips Propofol (Diprivan 10 Mg/Ml) 1,000 mg in 100 mls @ 1.95 mls/hr IV TITR GLEN; Protocol Last Titration: 12/05/20 10:19 Dose: 10 mcg/kg/min, 3.9 mls/hr Documented by: Fentanyl Citrate (Fentanyl Drip Premix) 2,000 mcg in 100 mls @ 3.25 mls/hr IV TITR GLEN; Protocol Last Titration: 12/05/20 10:05 Dose: 1 mcg/kg/hr, 3.25 mls/hr Documented by: Ceftriaxone Sodium (Rocephin/Ns 2 Gm/100 Ml) 2 gm in 100 mls @ 200 mls/hr IV Q12H GLEN; Protocol Norepinephrine (Levophed Drip 4 Mg/Ns 250 Ml) 4 mg in 250 mls @ 7.5 mls/hr IV TITR GLEN; Protocol Last Titration: 12/05/20 10:17 Dose: 25 mcg/min, 93.75 mls/hr Documented by: Insulin Human Lispro (Insulin Lispro 100 Unit/Ml) 0 unit SUB-Q Q4HR GLEN; Protocol Last Admin: 12/05/20 05:45 Dose: Not Given Documented by: Multi-Ingred Cream/Lotion/Oil/Oint (Mineral Oil/Petrolatum, White Ophth Oint 3.5 Gm) 1 applic OU Q4HR PRN PRN Reason: Dry Eye(s) Senna/Docusate Sodium (Sennosides/Docusate Sodium 8.6/50 Mg Tab) 1 tab FEEDTUBE BID GLEN Last Admin: 12/04/20 22:56 Dose: 1 tab Documented by: Simple Syrup (Simple Syrup 15 Ml) 15 ml FEEDTUBE PRN PRN PRN Reason: Hypoglycemia Simple Syrup (Simple Syrup 15 Ml) 30 ml FEEDTUBE PRN PRN PRN Reason: Hypoglycemia Sodium Bicarbonate (Sodium Bicarbonate 325 Mg Tab) 325 mg FEEDTUBE PRN PRN PRN Reason: For Clogged Feeding Tube Sodium Chloride (Sodium Chloride 0.9% 10 Ml Flush Syringe) 10 ml IV BID GLEN Last Admin: 12/04/20 21:39 Dose: 10 ml Documented by: Sodium Chloride (Sodium Chloride 0.9% 10 Ml Flush Syringe) 10 ml IV PRN PRN PRN Reason: LINE FLUSH Sodium Polystyrene Sulfonate (Sodium Polystyrene 15 Gm/60 Ml Oral Liqd) 30 gm PO ONCE@0930 NR Stop: 12/05/20 13:30 Physical Examination - Physical Exam Narrative exam: Physical Exam: Constitutional: sedated, intubated, on the vent Head, Ears, Nose: Normocephalic, atraumatic. External ears, nose normal Eyes: Conjunctivae/corneas clear. No icterus. No ptosis. Neck: intubated Oral: intubated Cardiovascular: S1, S2 + Respiratory: AE fair bilaterally and equal GI: Soft, bowel sounds + Musculoskeletal: No pedal edema, no cyanosis. Skin: No rash or abscess Hem/Lymphatic: No palpable cervical or supraclavicular nodes. No lymphangitis Psych: no agitation Neurological: sedated, intubated, on the vent, exam limited - Constitutional Vitals: Vital Signs Temp Pulse Resp BP Pulse Ox 102.8 F H 115 H 25 H 78/31 99 12/05/20 08:45 12/05/20 08:50 12/05/20 08:50 12/05/20 08:50 12/05/20 08:50 Temperature -Last 24 Hours Temperature 102.8 F Temperature 104.1 F Temperature 107.5 F Temperature 98.9 F Temperature 99.8 F Results - Labs CBC & Chem 7: 12/05/20 04:39 12/05/20 04:39 Labs: Abnormal lab results 12/04/20 12/04/20 12/04/20 Range/Units 13:45 13:54 15:11 WBC (4.5-11.0) K/mm3 RBC (3.65-5.03) M/mm3 Hgb (11.8-15.2) gm/dl Hct (35.5-45.6) % Lymph % (Auto) (13.4-35.0) % [place] % (Auto) (0.0-7.3) % [place] # (Auto) (0.0-0.8) K/mm3 Seg Neutrophils % (40.0-70.0) % Seg Neutrophils # (1.8-7.7) K/mm3 PT (12.2-14.9) Sec. INR (0.87-1.13) D-Dimer (0-234) ng/mlDDU ABG pO2 128.7 H (80.0-90.0) mm Hg ABG Base Excess -2.7 L (-2.0-3.0) mmol/L ABG Potassium (3.40-4.50) mmol/L ABG Chloride (98-107) mmol/L ABG Glucose (65-95) mg/dL Potassium (3.6-5.0) mmol/L Chloride (98-107) mmol/L BUN (9-20) mg/dL Creatinine (0.8-1.3) mg/dL Glucose (75-100) mg/dL POC Glucose 116 H (70-105) mg/dL Calcium (8.4-10.2) mg/dL Lactate Dehydrogenase 452 H (91-180) units/L C-Reactive Protein (0.00-1.30) mg/dL Arterial Blood Glucose (65-95) mg/dL Urine WBC (Auto) (0.0-6.0) /HPF 12/04/20 12/04/20 12/04/20 Range/Units 15:11 15:11 18:07 WBC (4.5-11.0) K/mm3 RBC (3.65-5.03) M/mm3 Hgb (11.8-15.2) gm/dl Hct (35.5-45.6) % Lymph % (Auto) (13.4-35.0) % [place] % (Auto) (0.0-7.3) % [place] # (Auto) (0.0-0.8) K/mm3 Seg Neutrophils % (40.0-70.0) % Seg Neutrophils # (1.8-7.7) K/mm3 PT (12.2-14.9) Sec. INR (0.87-1.13) D-Dimer > 27576 H (0-234) ng/mlDDU ABG pO2 (80.0-90.0) mm Hg ABG Base Excess (-2.0-3.0) mmol/L ABG Potassium (3.40-4.50) mmol/L ABG Chloride (98-107) mmol/L ABG Glucose (65-95) mg/dL Potassium (3.6-5.0) mmol/L Chloride (98-107) mmol/L BUN (9-20) mg/dL Creatinine (0.8-1.3) mg/dL Glucose (75-100) mg/dL POC Glucose 118 H (70-105) mg/dL Calcium (8.4-10.2) mg/dL Lactate Dehydrogenase (91-180) units/L C-Reactive Protein 2.80 H (0.00-1.30) mg/dL Arterial Blood Glucose (65-95) mg/dL Urine WBC (Auto) (0.0-6.0) /HPF 12/04/20 12/05/20 12/05/20 Range/Units 21:13 02:31 03:30 WBC (4.5-11.0) K/mm3 RBC (3.65-5.03) M/mm3 Hgb (11.8-15.2) gm/dl Hct (35.5-45.6) % Lymph % (Auto) (13.4-35.0) % [place] % (Auto) (0.0-7.3) % [place] # (Auto) (0.0-0.8) K/mm3 Seg Neutrophils % (40.0-70.0) % Seg Neutrophils # (1.8-7.7) K/mm3 PT (12.2-14.9) Sec. INR (0.87-1.13) D-Dimer (0-234) ng/mlDDU ABG pO2 (80.0-90.0) mm Hg ABG Base Excess (-2.0-3.0) mmol/L ABG Potassium 5.0 H (3.40-4.50) mmol/L ABG Chloride 108.0 H (98-107) mmol/L ABG Glucose 132 H (65-95) mg/dL Potassium (3.6-5.0) mmol/L Chloride (98-107) mmol/L BUN (9-20) mg/dL Creatinine (0.8-1.3) mg/dL Glucose (75-100) mg/dL POC Glucose 109 H 107 H (70-105) mg/dL Calcium (8.4-10.2) mg/dL Lactate Dehydrogenase (91-180) units/L C-Reactive Protein (0.00-1.30) mg/dL Arterial Blood Glucose 132 H (65-95) mg/dL Urine WBC (Auto) (0.0-6.0) /HPF 12/05/20 12/05/20 12/05/20 Range/Units 04:39 04:39 04:39 WBC 20.1 H (4.5-11.0) K/mm3 RBC 5.31 H (3.65-5.03) M/mm3 Hgb 16.2 H (11.8-15.2) gm/dl Hct 48.2 H (35.5-45.6) % Lymph % (Auto) 7.3 L (13.4-35.0) % [place] % (Auto) 8.4 H (0.0-7.3) % [place] # (Auto) 1.7 H (0.0-0.8) K/mm3 Seg Neutrophils % 84.2 H (40.0-70.0) % Seg Neutrophils # 16.9 H (1.8-7.7) K/mm3 PT 17.8 H (12.2-14.9) Sec. INR 1.40 H (0.87-1.13) D-Dimer (0-234) ng/mlDDU ABG pO2 (80.0-90.0) mm Hg ABG Base Excess (-2.0-3.0) mmol/L ABG Potassium (3.40-4.50) mmol/L ABG Chloride (98-107) mmol/L ABG Glucose (65-95) mg/dL Potassium 5.4 H D (3.6-5.0) mmol/L Chloride 109.5 H (98-107) mmol/L BUN 41 H (9-20) mg/dL Creatinine 2.7 H (0.8-1.3) mg/dL Glucose 134 H (75-100) mg/dL POC Glucose (70-105) mg/dL Calcium 8.0 L D (8.4-10.2) mg/dL Lactate Dehydrogenase (91-180) units/L C-Reactive Protein (0.00-1.30) mg/dL Arterial Blood Glucose (65-95) mg/dL Urine WBC (Auto) (0.0-6.0) /HPF 12/05/20 12/05/20 Range/Units 05:35 06:01 WBC (4.5-11.0) K/mm3 RBC (3.65-5.03) M/mm3 Hgb (11.8-15.2) gm/dl Hct (35.5-45.6) % Lymph % (Auto) (13.4-35.0) % [place] % (Auto) (0.0-7.3) % [place] # (Auto) (0.0-0.8) K/mm3 Seg Neutrophils % (40.0-70.0) % Seg Neutrophils # (1.8-7.7) K/mm3 PT (12.2-14.9) Sec. INR (0.87-1.13) D-Dimer (0-234) ng/mlDDU ABG pO2 (80.0-90.0) mm Hg ABG Base Excess (-2.0-3.0) mmol/L ABG Potassium (3.40-4.50) mmol/L ABG Chloride (98-107) mmol/L ABG Glucose (65-95) mg/dL Potassium (3.6-5.0) mmol/L Chloride (98-107) mmol/L BUN (9-20) mg/dL Creatinine (0.8-1.3) mg/dL Glucose (75-100) mg/dL POC Glucose 120 H (70-105) mg/dL Calcium (8.4-10.2) mg/dL Lactate Dehydrogenase (91-180) units/L C-Reactive Protein (0.00-1.30) mg/dL Arterial Blood Glucose (65-95) mg/dL Urine WBC (Auto) 20.0 H (0.0-6.0) /HPF - Imaging and Cardiology Chest x-ray: report reviewed, image reviewed Assessment and Plan Cultures: 12/04/2020 tracheal aspirate culture: In process 12/05/2020 blood culture: In process A/P: 45/M with known history of substance abuse admitted from home following cardiac arrest: #SIRS/sepsis, febrile/hyperthermia, possible pneumonitis/aspiration: fever could be central v/s substance abuse related. Rule out bacteremia due to h/o substance abuse. #Substance abuse: Urinary tox screen positive for amphetamine #Cardiac arrest #Dilated cardiomyopathy with EF 10 to 15% #SAURABH: Renally dose antibiotics. #Acute encephalopathy: Likely toxic/metabolic. Most likely from substance ab use. Suspicion for meningitis is low. Recs: ordered CK Empiric ceftriaxone, vancomycin for now. Renally dose abx low suspicion for meningitis Follow-up cultures Tori Samuel MD, FACP [facility] ([facility] O: [phone] F: [phone]
--- NOTE | 2020-12-05 11:43 | Event Note ---
Date: 12/05/20 I went to evaluate the patient today. He is on the vent, and the nurse says the patient is currently getting a picc line. She says the patient is sedated. Will attempt to reassess once the patient is more stable.
[2020-12-05] MEDS: SENNOSIDES/DOCUSATE SODIUM 8.6/50 MG TAB FEEDTUBE SCH ×2 (11:45→21:18)
[2020-12-05] MEDS: FAMOTIDINE 20 MG/2 ML INJ IV SCH ×2 (11:45→21:12)
--- NOTE | 2020-12-05 12:35 | Progress Note ---
Assessment and Plan Out of hospital cardiopulmonary arrest intubated on the vent Severe dilated cardiomyopathy LVEF 10-15% by echo this admission Sepsis Acute renal failure Chronic left bundle branch block Hx of substance abuse Recommend: Medical therapy for dilated cardiomyopathy when blood pressure allows. Subjective Date of service: 12/05/20 Interval history: Patient remains unresponsive on the vent and now on Levophed for support. He is reported atrial fibrillation overnight but there are no strips available to support this. An 12 lead ECG done is atrial tachycardia, rate 147. Currently he is sinus tachycardia on telemetry. Objective Vital Signs Temp Pulse Resp BP BP Pulse Ox 12/05/20 08:50 115 H 25 H 78/31 99 12/05/20 08:45 102.8 F H 113 H 20 71/31 98 12/05/20 08:44 114 H 71/31 98 12/05/20 08:40 115 H 25 H 71/33 100 12/05/20 08:30 116 H 25 H 74/29 99 12/05/20 08:20 119 H 25 H 76/30 12/05/20 08:10 121 H 25 H 81/31 98 12/05/20 08:03 104.1 F H 122 H 25 H 91/35 98 12/05/20 08:00 123 H 25 H 91/35 98 12/05/20 07:50 119 H 25 H 73/29 98 12/05/20 07:40 123 H 19 86/38 97 12/05/20 07:30 123 H 25 H 93/26 96 12/05/20 07:20 124 H 25 H 92/32 97 12/05/20 07:10 118 H 25 H 86/34 97 12/05/20 07:00 117 H 25 H 89/35 96 12/05/20 06:50 119 H 25 H 88/37 95 12/05/20 06:40 122 H 25 H 93/38 94 12/05/20 06:30 128 H 25 H 100/39 94 12/05/20 06:15 133 H 24 98/42 94 12/05/20 06:00 136 H 25 H 100/42 95 12/05/20 05:45 137 H 25 H 98/38 94 12/05/20 05:30 141 H 23 106/37 94 12/05/20 05:16 146 H 24 106/43 12/05/20 05:15 107.5 F H 09/29/21 05:00 147 H 26 H 106/43 96 12/05/20 04:45 149 H 28 H 116/48 98 12/05/20 04:40 137 H 134/74 98 12/05/20 04:30 149 H 32 H 114/54 12/05/20 04:15 148 H 34 H 111/57 97 12/05/20 04:00 149 H 34 H 112/62 12/05/20 03:45 148 H 35 H 115/65 97 12/05/20 03:30 149 H 36 H 115/70 97 12/05/20 03:15 149 H 35 H 120/72 97 12/05/20 03:00 143 H 35 H 120/75 96 12/05/20 02:45 141 H 34 H 119/78 98 12/05/20 02:30 140 H 34 H 121/79 98 12/05/20 02:15 138 H 35 H 119/79 98 12/05/20 02:00 138 H 35 H 118/79 97 12/05/20 01:45 136 H 35 H 118/80 98 12/05/20 01:30 136 H 35 H 115/78 97 12/05/20 01:15 134 H 35 H 118/79 98 12/05/20 01:00 132 H 36 H 110/76 98 12/05/20 00:45 143 H 35 H 122/82 98 12/05/20 00:30 143 H 35 H 120/78 98 12/05/20 00:15 142 H 35 H 122/78 98 12/05/20 00:12 142 H 35 H 126/84 98 12/05/20 00:00 142 H 34 H 123/84 98 12/04/20 23:45 143 H 35 H 126/83 98 12/04/20 23:30 142 H 36 H 124/81 98 12/04/20 23:15 142 H 36 H 122/81 98 12/04/20 23:02 142 H 122/84 98 12/04/20 23:00 143 H 36 H 121/83 98 12/04/20 22:45 142 H 35 H 125/85 99 12/04/20 22:30 142 H 36 H 128/82 99 12/04/20 22:15 142 H 35 H 128/78 99 12/04/20 22:00 142 H 36 H 127/84 99 12/04/20 21:45 142 H 38 H 124/82 98 12/04/20 21:30 141 H 37 H 121/82 98 12/04/20 21:15 141 H 37 H 122/80 98 12/04/20 21:00 141 H 37 H 123/83 98 12/04/20 20:45 141 H 38 H 120/81 99 12/04/20 20:30 140 H 38 H 125/86 12/04/20 20:25 141 H 127/81 99 12/04/20 20:15 140 H 38 H 120/81 99 12/04/20 20:00 140 H 37 H 125/81 99 12/04/20 19:45 139 H 38 H 120/83 99 12/04/20 19:30 98.9 F 139 H 39 H 126/81 126/79 12/04/20 19:15 138 H 39 H 127/76 98 12/04/20 19:00 138 H 38 H 127/80 98 12/04/20 18:45 139 H 38 H 124/79 12/04/20 18:30 139 H 39 H 124/79 12/04/20 18:22 99.8 F H 12/04/20 18:15 139 H 36 H 118/81 12/04/20 18:00 139 H 38 H 125/82 12/04/20 17:45 138 H 37 H 128/79 98 12/04/20 17:30 139 H 38 H 126/77 12/04/20 17:29 139 H 126/77 12/04/20 17:15 140 H 34 H 127/79 12/04/20 17:00 137 H 37 H 127/79 12/04/20 16:45 138 H 38 H 128/77 12/04/20 16:30 137 H 36 H 125/85 99 12/04/20 16:15 138 H 37 H 121/78 99 12/04/20 16:00 137 H 34 H 126/84 12/04/20 15:45 138 H 32 H 129/84 12/04/20 15:30 137 H 32 H 130/86 99 12/04/20 15:15 138 H 32 H 128/85 98 12/04/20 15:00 137 H 30 H 131/87 98 12/04/20 14:45 135 H 24 129/86 98 12/04/20 14:30 135 H 29 H 129/88 99 12/04/20 14:15 136 H 29 H 134/89 99 12/04/20 14:00 136 H 28 H 132/89 99 12/04/20 13:45 135 H 30 H 130/94 99 12/04/20 13:30 134 H 23 139/95 99 12/04/20 13:15 135 H 26 H 136/94 99 12/04/20 13:00 133 H 25 H 139/90 98 12/04/20 12:45 132 H 27 H 134/91 99 - Physical Examination General: Other (intubated on the vent) Cardiac: Positive: Reg Rate and Rhythm - Labs and Meds Cardiac Enzymes 12/04/20 Range/Units 15:11 Lactate Dehydrogenase 452 H (91-180) units/L Coagulation 12/05/20 Range/Units 04:39 PT 17.8 H (12.2-14.9) Sec. INR 1.40 H (0.87-1.13) CBC 12/05/20 Range/Units 04:39 WBC 20.1 H (4.5-11.0) K/mm3 RBC 5.31 H (3.65-5.03) M/mm3 Hgb 16.2 H (11.8-15.2) gm/dl Hct 48.2 H (35.5-45.6) % Plt Count 188 (140-440) K/mm3 Lymph # (Auto) 1.5 (1.2-5.4) K/mm3 [place] # (Auto) 1.7 H (0.0-0.8) K/mm3 Eos # (Auto) 0.0 (0.0-0.4) K/mm3 Baso # (Auto) 0.0 (0.0-0.1) K/mm3 Comprehensive Metabolic Panel 12/05/20 Range/Units 04:39 Sodium 141 (137-145) mmol/L Potassium 5.4 H D (3.6-5.0) mmol/L Chloride 109.5 H (98-107) mmol/L Carbon Dioxide 22 (22-30) mmol/L BUN 41 H (9-20) mg/dL Creatinine 2.7 H (0.8-1.3) mg/dL Glucose 134 H (75-100) mg/dL Calcium 8.0 L D (8.4-10.2) mg/dL - Allied health notes Allied health notes reviewed: nursing
--- NOTE | 2020-12-05 12:52 | XRay Report ---
ABDOMEN 1 VIEW(S) 1231 hours INDICATION / CLINICAL INFORMATION: OGT advancement verification of placement. COMPARISON: Earlier today at 0755 hours FINDINGS: TUBES / LINES: The nasogastric tube has been advanced and is now coiled in the fundus of the stomach. BOWEL GAS PATTERN: There is persistent gaseous distention of the stomach. Small bowel loops and colon remain unremarkable. FREE AIR / EXTRALUMINAL GAS: None seen. ADDITIONAL FINDINGS: No significant additional findings. IMPRESSION: The nasogastric tube has been advanced and is now coiled in the fundus of the stomach. Signer Name: Leonard Burks Jr, MD Signed: 12/05/2020 12:47 PM Workstation Name: [id number]
[2020-12-05] MEDS ORDERED: METOPROLOL TARTRATE 5 MG/5 ML INJ IV ONE ×2 (13:45→14:00)
--- NOTE | 2020-12-05 13:51 | Cat Scan Report ---
CT BRAIN: 12/05/2020 INDICATION / CLINICAL INFORMATION: Change in Neuro Status. History of anoxic injury. COMPARISON: CT brain 04/28/2020 FINDINGS: BRAIN/INTRACRANIAL STRUCTURES: Unenhanced CT images of the brain were obtained and compared to the pr ior exam from 11/26/2020. There is been interval development of diffuse cerebral edema. There is globa l loss of diaz-white differentiation. There is loss of sulcal definition, and obscuration of definiti on of basilar cisterns and ambient cisterns. The arterial and venous vascular structures are relatively hypodense with respect to brain parenchyma . This is most likely primarily the result of relatively decreased brain parenchymal attenuation, alt tao slow flow in vessel thromboses can be associated with some increased vascular density. There is no evidence of parenchymal hematoma. There are no abnormal extra-axial fluid collections. IMPRESSION:. Interval development of critical prominent diffuse cerebral edema,.. All CT scans at this location are performed using dose reduction to ALARA by means of automated expos ure control. Signer Name: Lex Bush MD Signed: 12/05/2020 1:47 PM Workstation Name: [id number]
--- NOTE | 2020-12-05 14:07 | Progress Note ---
Assessment and Plan Acute respiratory failure Cardiac arrest with return of spontaneous circulation Drug abuse with overdose Acute kidney injury Acute toxic metabolic encephalopathy Hypokalemia Elevated serum transaminases Oropharyngeal dysphagia - discussed repeat CT Brain with NSG and it shows herniation; EEG also is flatline really; both exams not compatible with significant cerebral function - will discuss care goals with his mother - for now, care as below; - vasopressors for target MAP > 65 mmHg - Daily SAT and SBT assessment as tolerated - continue to wean supplemental oxygen for target O2 sat's > 90% acutely - VAP bundle addressed - continue lung protective strategies - continue bronchodilators with pulmonary hygiene per RT - wean per pulmonary driven protocols otherwise - avoid nephrotoxins, renally dose all medications - continue to avoid benzodiazepine's, reduce the possibility of delirium - AB's per ID rec's - prn analgesia per CPOT score - Maintenance of sleep-wake cycle, avoid delirium - enteral nutritional support at goal rate as tolerated - G.I. & VTE prophylaxis - PT/OT/ROM exercises - continue mobility protocols for pressure ulcer prophylaxis - Monitor hemodynamics closely - continue other care per attending / other consultants - discharge planning ongoing concurrently COVID SPECIFIC INTERVENTIONS - COVID-19 PCR test report pending .... Re-evaluate in am & prn CONDITION: CRITICAL PROGNOSIS: GUARDED CODE STATUS: FULL CODE The high probability of a clinically significant, sudden or life-threatening deterioration of the [respiratory, cardiovascular & neurologic] system(s) required my full and direct attention, intervention and personal management. The aggregate critical care time was [34] minutes without overlap. Time includes spent on; [x] Data Review and interpretation [x] Patient assessment and monitoring of vital signs [x] Documentation [x] Medication orders and management Subjective Date of service: 12/05/20 Principal diagnosis: Acute respiratory failure; Cardiac arrest with ROSC; Drug OD; SAURABH; AMS Interval history: Patient is seen today for: Acute respiratory failure; Cardiac arrest with ROSC; Drug OD; SAURABH; Acute toxic metabolic encephalopathy Seen and examined at bedside; 24hour events reviewed; nursing and respiratory care staff consulted; no adverse overnight events reported to me; resting in be d; non responsive todat; pupils fixed at about 7 mm; no emesis or overt aspiration; now hypotensive; no seizures; febrile up to 107F Objective Vital Signs - 12hr 12/05/20 12/05/20 12/05/20 02:15 02:30 02:45 Temperature Pulse Rate 138 H 140 H 141 H Respiratory 35 H 34 H 34 H Rate Blood Pressure 119/79 121/79 119/78 Blood Pressure [Left] O2 Sat by Pulse 98 98 98 Oximetry 12/05/20 12/05/20 12/05/20 03:00 03:15 03:30 Temperature Pulse Rate 143 H 149 H 149 H Respiratory 35 H 35 H 36 H Rate Blood Pressure 120/75 120/72 115/70 Blood Pressure [Left] O2 Sat by Pulse 96 97 97 Oximetry 12/05/20 12/05/20 12/05/20 03:45 04:00 04:15 Temperature Pulse Rate 148 H 149 H 148 H Respiratory 35 H 34 H 34 H Rate Blood Pressure 115/65 112/62 111/57 Blood Pressure [Left] O2 Sat by Pulse 97 97 Oximetry 12/05/20 12/05/20 12/05/20 04:30 04:40 04:45 Temperature Pulse Rate 149 H 137 H 149 H Respiratory 32 H 28 H Rate Blood Pressure 114/54 134/74 116/48 Blood Pressure [Left] O2 Sat by Pulse 98 98 Oximetry 12/05/20 12/05/20 12/05/20 05:00 05:15 05:16 Temperature 107.5 F H Pulse Rate 147 H 146 H Respiratory 26 H 24 Rate Blood Pressure 106/43 106/43 Blood Pressure [Left] O2 Sat by Pulse 96 Oximetry 12/05/20 12/05/20 12/05/20 05:30 05:45 06:00 Temperature Pulse Rate 141 H 137 H 136 H Respiratory 23 25 H 25 H Rate Blood Pressure 106/37 98/38 100/42 Blood Pressure [Left] O2 Sat by Pulse 94 94 95 Oximetry 12/05/20 12/05/20 12/05/20 06:15 06:30 06:40 Temperature Pulse Rate 133 H 128 H 122 H Respiratory 24 25 H 25 H Rate Blood Pressure 98/42 100/39 93/38 Blood Pressure [Left] O2 Sat by Pulse 94 94 94 Oximetry 12/05/20 12/05/20 12/05/20 06:50 07:00 07:10 Temperature Pulse Rate 119 H 117 H 118 H Respiratory 25 H 25 H 25 H Rate Blood Pressure 88/37 89/35 86/34 Blood Pressure [Left] O2 Sat by Pulse 95 96 97 Oximetry 12/05/20 12/05/20 12/05/20 07:20 07:30 07:40 Temperature Pulse Rate 124 H 123 H 123 H Respiratory 25 H 25 H 19 Rate Blood Pressure 92/32 93/26 86/38 Blood Pressure [Left] O2 Sat by Pulse 97 96 97 Oximetry 12/05/20 12/05/20 12/05/20 07:50 08:00 08:03 Temperature 104.1 F H Pulse Rate 119 H 123 H 122 H Respiratory 25 H 25 H 25 H Rate Blood Pressure 73/29 91/35 Blood Pressure 91/35 [Left] O2 Sat by Pulse 98 98 98 Oximetry 12/05/20 12/05/20 12/05/20 08:10 08:20 08:30 Temperature Pulse Rate 121 H 119 H 116 H Respiratory 25 H 25 H 25 H Rate Blood Pressure 81/31 76/30 74/29 Blood Pressure [Left] O2 Sat by Pulse 98 99 Oximetry 12/05/20 12/05/20 12/05/20 08:40 08:44 08:45 Temperature 102.8 F H Pulse Rate 115 H 114 H 113 H Respiratory 25 H 20 Rate Blood Pressure 71/33 71/31 Blood Pressure 71/31 [Left] O2 Sat by Pulse 100 98 98 Oximetry 12/05/20 12/05/20 12/05/20 08:50 12:00 12:38 Temperature 100.9 F H Pulse Rate 115 H Respiratory 25 H Rate Blood Pressure 78/31 71/31 Blood Pressure [Left] O2 Sat by Pulse 99 Oximetry 12/05/20 12/05/20 12:45 12:50 Temperature Pulse Rate 100 H 94 H Respiratory 25 H Rate Blood Pressure 141/96 130/93 Blood Pressure [Left] O2 Sat by Pulse 100 100 Oximetry Constitutional: no acute distress (sedated), other Eyes: non-icteric ENT: oropharynx moist, other (ETT 24 cm JONAH) Neck: supple, no lymphadenopathy, no JVD Effort: normal (riding set rate of 25) Ascultation: Bilateral: clear Percussion: Bilateral: not dull Cardiovascular: regular rate and rhythm, other (intermittent tachyarrythmia's) Gastrointestinal: normoactive bowel sounds, soft, non-tender, non-distended Integumentary: normal Extremities: no cyanosis, no edema, pink and warm, pulses normal Neurologic: unable to assess Psychiatric: other (unable to assess) CBC and BMP: 12/05/20 04:39 12/05/20 04:39 ABG, PT/INR, D-dimer: ABG ABG pH 7.349 (7.320-7.450) 12/05/20 03:30 POC ABG pCO2 36.2 mmHg (32.0-48.0) 12/05/20 03:30 ABG pCO2 30.9 mm Hg 12/04/20 13:45 POC ABG pO2 86.7 mmHg (83-108) 12/05/20 03:30 ABG pO2 128.7 mm Hg (80.0-90.0) H 12/04/20 13:45 POC ABG HCO3 19.5 12/05/20 03:30 ABG O2 Saturation 96.7 (0-100) 12/05/20 03:30 PT/INR, D-dimer PT 17.8 Sec. (12.2-14.9) H 12/05/20 04:39 INR 1.40 (0.87-1.13) H 12/05/20 04:39 D-Dimer > 01108 ng/mlDDU (0-234) H 12/04/20 15:11 Abnormal lab findings: Abnormal Labs 12/04/20 12/04/20 12/04/20 02:50 02:50 04:51 WBC RBC Hgb Hct Lymph % (Auto) [place] % (Auto) [place] # (Auto) Seg Neutrophils % Seg Neuts % (Manual) 26.0 L Lymphocytes % (Manual) 70.0 H Seg Neutrophils # Lymphocytes # (Manual) 6.9 H PT INR D-Dimer ABG pH 7.341 L ABG pO2 527.8 H ABG O2 Saturation 99.6 H ABG Base Excess -4.4 L ABG Potassium ABG Chloride ABG Glucose Potassium 3.5 L Chloride BUN 21 H Creatinine 1.9 H Glucose 362 H POC Glucose Calcium 10.9 H Magnesium 2.80 H AST 77 H ALT 72 H Lactate Dehydrogenase C-Reactive Protein Total Protein 5.8 L Arterial Blood Glucose Urine WBC (Auto) 12/04/20 12/04/20 12/04/20 08:19 09:42 13:45 WBC RBC Hgb Hct Lymph % (Auto) [place] % (Auto) [place] # (Auto) Seg Neutrophils % Seg Neuts % (Manual) Lymphocytes % (Manual) Seg Neutrophils # Lymphocytes # (Manual) PT INR D-Dimer ABG pH ABG pO2 128.7 H ABG O2 Saturation ABG Base Excess -2.7 L ABG Potassium ABG Chloride ABG Glucose Potassium Chloride BUN Creatinine Glucose POC Glucose 178 H 115 H Calcium Magnesium AST ALT Lactate Dehydrogenase C-Reactive Protein Total Protein Arterial Blood Glucose Urine WBC (Auto) 12/04/20 12/04/20 12/04/20 13:54 15:11 15:11 WBC RBC Hgb Hct Lymph % (Auto) [place] % (Auto) [place] # (Auto) Seg Neutrophils % Seg Neuts % (Manual) Lymphocytes % (Manual) Seg Neutrophils # Lymphocytes # (Manual) PT INR D-Dimer > 95798 H ABG pH ABG pO2 ABG O2 Saturation ABG Base Excess ABG Potassium ABG Chloride ABG Glucose Potassium Chloride BUN Creatinine Glucose POC Glucose 116 H Calcium Magnesium AST ALT Lactate Dehydrogenase 452 H C-Reactive Protein Total Protein Arterial Blood Glucose Urine WBC (Auto) 12/04/20 12/04/20 12/04/20 15:11 18:07 21:13 WBC RBC Hgb Hct Lymph % (Auto) [place] % (Auto) [place] # (Auto) Seg Neutrophils % Seg Neuts % (Manual) Lymphocytes % (Manual) Seg Neutrophils # Lymphocytes # (Manual) PT INR D-Dimer ABG pH ABG pO2 ABG O2 Saturation ABG Base Excess ABG Potassium ABG Chloride ABG Glucose Potassium Chloride BUN Creatinine Glucose POC Glucose 118 H 109 H Calcium Magnesium AST ALT Lactate Dehydrogenase C-Reactive Protein 2.80 H Total Protein Arterial Blood Glucose Urine WBC (Auto) 12/05/20 12/05/20 12/05/20 02:31 03:30 04:39 WBC 20.1 H RBC 5.31 H Hgb 16.2 H Hct 48.2 H Lymph % (Auto) 7.3 L [place] % (Auto) 8.4 H [place] # (Auto) 1.7 H Seg Neutrophils % 84.2 H Seg Neuts % (Manual) Lymphocytes % (Manual) Seg Neutrophils # 16.9 H Lymphocytes # (Manual) PT INR D-Dimer ABG pH ABG pO2 ABG O2 Saturation ABG Base Excess ABG Potassium 5.0 H ABG Chloride 108.0 H ABG Glucose 132 H Potassium Chloride BUN Creatinine Glucose POC Glucose 107 H Calcium Magnesium AST ALT Lactate Dehydrogenase C-Reactive Protein Total Protein Arterial Blood Glucose 132 H Urine WBC (Auto) 12/05/20 12/05/20 12/05/20 04:39 04:39 05:35 WBC RBC Hgb Hct Lymph % (Auto) [place] % (Auto) [place] # (Auto) Seg Neutrophils % Seg Neuts % (Manual) Lymphocytes % (Manual) Seg Neutrophils # Lymphocytes # (Manual) PT 17.8 H INR 1.40 H D-Dimer ABG pH ABG pO2 ABG O2 Saturation ABG Base Excess ABG Potassium ABG Chloride ABG Glucose Potassium 5.4 H D Chloride 109.5 H BUN 41 H Creatinine 2.7 H Glucose 134 H POC Glucose 120 H Calcium 8.0 L D Magnesium AST ALT Lactate Dehydrogenase C-Reactive Protein Total Protein Arterial Blood Glucose Urine WBC (Auto) 12/05/20 12/05/20 06:01 11:20 WBC RBC Hgb Hct Lymph % (Auto) [place] % (Auto) [place] # (Auto) Seg Neutrophils % Seg Neuts % (Manual) Lymphocytes % (Manual) Seg Neutrophils # Lymphocytes # (Manual) PT INR D-Dimer ABG pH ABG pO2 ABG O2 Saturation ABG Base Excess ABG Potassium ABG Chloride ABG Glucose Potassium Chloride BUN Creatinine Glucose POC Glucose 109 H Calcium Magnesium AST ALT Lactate Dehydrogenase C-Reactive Protein Total Protein Arterial Blood Glucose Urine WBC (Auto) 20.0 H Chest x-ray: image reviewed (no acute process) Allied health notes reviewed: nursing
[2020-12-05] MEDS: cefTRIAXone/NS 2 GM/100 ML 2 GM/100 ML BAG IV SCH (15:23)
--- NOTE | 2020-12-05 15:42 | Consultation ---
History of Present Illness Consult date: 12/05/20 Reason for Consult: Altered Mental Status Chief complaint: Altered Mental Status History of present illness: 45 yo male with heroin abuse/overdose with recent (2 weeks ago) hx of out of hospital cpr, presents with out of hospital cardiac arrest ("pulseless and apneic") with noted encephalopathy. Initial NCHCT in the ED, on admission, revealed no acute ICH. Per RN, today, noted with an episode of hypotension and he was "resuscitated" this afternoon and repeat NCHCT reveals diffuse cerebral injury with a concern for central herniation. Per RN, the patient does not have any CN reflexes and no movement of his extremities. Of note, two attempts made this morning during rounds to see patient but patient was not available to be seen. Past History Past Medical History: No medical history, other (heroin abuse, hx of out of hospital cpr in the recent past) Past Surgical History: Other (Not obtainble) Social history: other (Not obtainble) Family history: other (Not obtainble) Medications and Allergies Allergies Allergy/AdvReac Type Severity Reaction Status Date / Time No Known Allergies Allergy Unverified 12/05/17 21:05 Home Medications Medication Instructions Recorded Confirmed Last Taken Type Naloxone HCl [Narcan Nasal [place]] 4 mg NS PRN PRN #2 spray 06/02/19 Unknown Rx Active Meds: Active Medications Acetaminophen (Acetaminophen 650 Mg Rect Supp) 650 mg IN Q6H PRN PRN Reason: Pain MILD(1-3)/Fever >100.5/CALLEJAS Last Admin: 12/05/20 05:30 Dose: 650 mg Documented by: Acetaminophen (Acetaminophen 325 Mg Tab) 650 mg PO Q6H PRN PRN Reason: Pain, Mild (1-3) Lipase/Protease/Amylase (Lipase 10,500/Protease 25,000/Amylase 43,750 (Units) Dr Caballero) 1 each FEEDTUBE PRN PRN PRN Reason: For Clogged Feeding Tube Dextrose (Dextrose 50% In Water (25gm) 50 Ml Syringe) 50 ml IV Q30MIN PRN; Protocol PRN Reason: Hypoglycemia Famotidine (Famotidine 20 Mg/2 Ml Inj) 10 mg IV BID GLEN Last Admin: 12/05/20 11:45 Dose: 10 mg Documented by: Fentanyl (Fentanyl 100 Mcg/2 Ml Inj) 50 mcg IV Q10MIN PRN PRN Reason: ANALGESIA Heparin Sodium (Porcine) (Heparin 5,000 Unit/1 Ml Vial) 5,000 unit SUB-Q Q8HR GLEN Last Admin: 12/05/20 15:23 Dose: 5,000 unit Documented by: Hydromorphone HCl (Hydromorphone 1 Mg/1 Ml Inj) 0.25 mg IV Q4H PRN PRN Reason: Pain, Moderate (4-6) Hydrophilic Ointment (Lip Therapy Vaseline) 1 applic TP Q2HR PRN PRN Reason: Dry Lips Propofol (Diprivan 10 Mg/Ml) 1,000 mg in 100 mls @ 1.95 mls/hr IV TITR GLEN; Protocol Last Titration: 12/05/20 14:54 Dose: 0 mcg/kg/min, 0 mls/hr Documented by: Fentanyl Citrate (Fentanyl Drip Premix) 2,000 mcg in 100 mls @ 3.25 mls/hr IV TITR GLEN; Protocol Last Titration: 12/05/20 14:54 Dose: 0 mcg/kg/hr, 0 mls/hr Documented by: Norepinephrine (Levophed Drip 4 Mg/Ns 250 Ml) 4 mg in 250 mls @ 7.5 mls/hr IV TITR GLEN; Protocol Last Titration: 12/05/20 15:35 Dose: 14 mcg/min, 52.5 mls/hr Documented by: Ceftriaxone Sodium (Rocephin/Ns 2 Gm/100 Ml) 2 gm in 100 mls @ 200 mls/hr IV Q24H GLEN; Protocol Last Admin: 12/05/20 15:23 Dose: 200 mls/hr Documented by: Insulin Human Lispro (Insulin Lispro 100 Unit/Ml) 0 unit SUB-Q Q6HR GLEN; Protocol Last Admin: 12/05/20 15:31 Dose: Not Given Documented by: Multi-Ingred Cream/Lotion/Oil/Oint (Mineral Oil/Petrolatum, White Ophth Oint 3.5 Gm) 1 applic OU Q4HR PRN PRN Reason: Dry Eye(s) Senna/Docusate Sodium (Sennosides/Docusate Sodium 8.6/50 Mg Tab) 1 tab FEEDTUBE BID GLEN Last Admin: 12/05/20 11:45 Dose: 1 tab Documented by: Simple Syrup (Simple Syrup 15 Ml) 15 ml FEEDTUBE PRN PRN PRN Reason: Hypoglycemia Simple Syrup (Simple Syrup 15 Ml) 30 ml FEEDTUBE PRN PRN PRN Reason: Hypoglycemia Sodium Bicarbonate (Sodium Bicarbonate 325 Mg Tab) 325 mg FEEDTUBE PRN PRN PRN Reason: For Clogged Feeding Tube Sodium Chloride (Sodium Chloride 0.9% 10 Ml Flush Syringe) 10 ml IV BID GLEN Last Admin: 12/05/20 11:46 Dose: 10 ml Documented by: Sodium Chloride (Sodium Chloride 0.9% 10 Ml Flush Syringe) 10 ml IV PRN PRN PRN Reason: LINE FLUSH Physical Examination - Vital Signs Vital Signs: Vital Signs Pulse Resp BP 103 H 13 77/43 12/04/20 03:00 12/04/20 03:00 12/04/20 03:00 - Physical Exam Narrative exam: Per RN, no cranial nerve reflexes or movement of the extremities after the hypotensive event today. Results - Laboratory Findings CBC and BMP: 12/05/20 04:39 12/05/20 04:39 Abnormal Lab Findings: Abnormal Labs 12/04/20 12/04/20 12/04/20 02:50 02:50 04:51 WBC RBC Hgb Hct Lymph % (Auto) [place] % (Auto) [place] # (Auto) Seg Neutrophils % Seg Neuts % (Manual) 26.0 L Lymphocytes % (Manual) 70.0 H Seg Neutrophils # Lymphocytes # (Manual) 6.9 H PT INR D-Dimer ABG pH 7.341 L ABG pO2 527.8 H ABG O2 Saturation 99.6 H ABG Base Excess -4.4 L ABG Potassium ABG Chloride ABG Glucose Potassium 3.5 L Chloride BUN 21 H Creatinine 1.9 H Glucose 362 H POC Glucose Calcium 10.9 H Magnesium 2.80 H AST 77 H ALT 72 H Lactate Dehydrogenase C-Reactive Protein Total Protein 5.8 L Arterial Blood Glucose Urine WBC (Auto) 12/04/20 12/04/20 12/04/20 08:19 09:42 13:45 WBC RBC Hgb Hct Lymph % (Auto) [place] % (Auto) [place] # (Auto) Seg Neutrophils % Seg Neuts % (Manual) Lymphocytes % (Manual) Seg Neutrophils # Lymphocytes # (Manual) PT INR D-Dimer ABG pH ABG pO2 128.7 H ABG O2 Saturation ABG Base Excess -2.7 L ABG Potassium ABG Chloride ABG Glucose Potassium Chloride BUN Creatinine Glucose POC Glucose 178 H 115 H Calcium Magnesium AST ALT Lactate Dehydrogenase C-Reactive Protein Total Protein Arterial Blood Glucose Urine WBC (Auto) 12/04/20 12/04/20 12/04/20 13:54 15:11 15:11 WBC RBC Hgb Hct Lymph % (Auto) [place] % (Auto) [place] # (Auto) Seg Neutrophils % Seg Neuts % (Manual) Lymphocytes % (Manual) Seg Neutrophils # Lymphocytes # (Manual) PT INR D-Dimer > 17441 H ABG pH ABG pO2 ABG O2 Saturation ABG Base Excess ABG Potassium ABG Chloride ABG Glucose Potassium Chloride BUN Creatinine Glucose POC Glucose 116 H Calcium Magnesium AST ALT Lactate Dehydrogenase 452 H C-Reactive Protein Total Protein Arterial Blood Glucose Urine WBC (Auto) 12/04/20 12/04/20 12/04/20 15:11 18:07 21:13 WBC RBC Hgb Hct Lymph % (Auto) [place] % (Auto) [place] # (Auto) Seg Neutrophils % Seg Neuts % (Manual) Lymphocytes % (Manual) Seg Neutrophils # Lymphocytes # (Manual) PT INR D-Dimer ABG pH ABG pO2 ABG O2 Saturation ABG Base Excess ABG Potassium ABG Chloride ABG Glucose Potassium Chloride BUN Creatinine Glucose POC Glucose 118 H 109 H Calcium Magnesium AST ALT Lactate Dehydrogenase C-Reactive Protein 2.80 H Total Protein Arterial Blood Glucose Urine WBC (Auto) 12/05/20 12/05/20 12/05/20 02:31 03:30 04:39 WBC 20.1 H RBC 5.31 H Hgb 16.2 H Hct 48.2 H Lymph % (Auto) 7.3 L [place] % (Auto) 8.4 H [place] # (Auto) 1.7 H Seg Neutrophils % 84.2 H Seg Neuts % (Manual) Lymphocytes % (Manual) Seg Neutrophils # 16.9 H Lymphocytes # (Manual) PT INR D-Dimer ABG pH ABG pO2 ABG O2 Saturation ABG Base Excess ABG Potassium 5.0 H ABG Chloride 108.0 H ABG Glucose 132 H Potassium Chloride BUN Creatinine Glucose POC Glucose 107 H Calcium Magnesium AST ALT Lactate Dehydrogenase C-Reactive Protein Total Protein Arterial Blood Glucose 132 H Urine WBC (Auto) 12/05/20 12/05/20 12/05/20 04:39 04:39 05:35 WBC RBC Hgb Hct Lymph % (Auto) [place] % (Auto) [place] # (Auto) Seg Neutrophils % Seg Neuts % (Manual) Lymphocytes % (Manual) Seg Neutrophils # Lymphocytes # (Manual) PT 17.8 H INR 1.40 H D-Dimer ABG pH ABG pO2 ABG O2 Saturation ABG Base Excess ABG Potassium ABG Chloride ABG Glucose Potassium 5.4 H D Chloride 109.5 H BUN 41 H Creatinine 2.7 H Glucose 134 H POC Glucose 120 H Calcium 8.0 L D Magnesium AST ALT Lactate Dehydrogenase C-Reactive Protein Total Protein Arterial Blood Glucose Urine WBC (Auto) 12/05/20 12/05/20 06:01 11:20 WBC RBC Hgb Hct Lymph % (Auto) [place] % (Auto) [place] # (Auto) Seg Neutrophils % Seg Neuts % (Manual) Lymphocytes % (Manual) Seg Neutrophils # Lymphocytes # (Manual) PT INR D-Dimer ABG pH ABG pO2 ABG O2 Saturation ABG Base Excess ABG Potassium ABG Chloride ABG Glucose Potassium Chloride BUN Creatinine Glucose POC Glucose 109 H Calcium Magnesium AST ALT Lactate Dehydrogenase C-Reactive Protein Total Protein Arterial Blood Glucose Urine WBC (Auto) 20.0 H Assessment and Plan 45 yo male with heroin abuse/overdose presenting s/p cardiac arrest with noted diffuse hypoxic anoxic injury on ct head w/o contrast from today. This is an urgent consult placed at end of shift and without televideo personnel available for bedside televideo evaluation. All information regarding today's change in neurologic status was obtained today via conversation with the patient's nurse. 1. Hypoxic Anoxic Encephaloapthy - confirmed on NCHCT today (images reviewed); agree with brain flow study. 2. Subclinical Seizures - Keppra load with 2 gram IV x 1 dose; however this is futile if the patient is confirmed with brain on clinical exam and with brain flow study. 3. Heroin Abuse - etiology of patient's cardiac arrest. Kodi Berry MD Neurology
--- NOTE | 2020-12-05 18:34 | Event Note ---
Date: 12/05/20 Advance care planning conducted. Discussed plan of care with patient family. Physical exam conducted. Patient found to have absence of motor responses. Patient also found to have absence of brainstem reflexes. Patient found to have pupil dilation. Patient found to have absent oculocephalic reflex. Patient also found to have absent oculovestibular reflex. Patient found to have absent corneal reflexes. Patient found to have absent facial movements to noxious stimulation. Patient found to have absent gag reflex. Patient found to have absent cough reflex in response to tracheal suctioning. Patient also found to have absent ventilatory reflex. EEG patient found to have no electrical activity during these 30 minutes of recording. Patient family elects to pursue organ donation. Patient found to meet diagnostic criteria for neurologic brain .
[2020-12-05] MEDS ORDERED: SODIUM CHLORIDE 0.9% 500 ML 500 ML IV PRN (21:09)
[2020-12-05 21:37] LABS: Albumin 3.1 g/dL (3.9-5); Calcium 7.5 mg/dL (8.4-10.2)
[2020-12-05] MEDS ORDERED: VASOPRESSIN 20 UNIT in SODIUM CHLORIDE 0.9% 100 ML IV SCH (23:45)
[2020-12-06] MEDS: INSULIN LISPRO 100 UNIT/ML SUB-Q SCH ×4 (00:01→11:29)
--- NOTE | 2020-12-06 01:14 | Procedure Note ---
Date of procedure: 12/06/20 Pre-op diagnosis: Hypotension Post-op diagnosis: same Procedure: Patient is a 45-year-old male that is admitted to our hospitalist service. The hospital service asked that I start a line. Patient needs an art line for frequent ABGs and blood pressure monitoring. Patient is hypotensive and is currently on pressors. Consent is emergent. procedure note, art line placement in the left radial artery. Procedure was emergent, the patient was unable to provide consent and a designee was not immediately available. Timeout was performed. Site was draped and cleaned in a sterile fashion. I then donned a surgical cap, a mask and a protective sterile gown and sterile gloves throughout the procedure. After Lex test was performed to ensure adequate perfusion, the left wrist was cleaned with chlorhexidine and draped in a sterile fashion. The radial pulse was identified and the wrist was positioned in the usual fashion. Using a sterile art line kit used, a needle was inserted into the radial artery. Arterial blood was seen to pulsatile and flash into the needle chamber. The internal guidewire was advanced easily into the radial artery. The catheter was advanced over the wire and the needle and wire were withdrawn. Sterile OpSite was placed over the catheter at the insertion site. The patient tolerated the procedure without any complications. At the time of procedure completion, the catheter was connected to a carpenter assistant installer and c alibrated. Appropriate waveform and blood pressure tracing was observed. Estimated blood loss was minimal. Care transferred back to the primary team. Anesthesia: none Estimated blood loss: none Pathology: none Condition: critical Disposition: ICU
[2020-12-06 04:38] LABS: Basophils # (Auto) 0.1 K/mm3 (0.0-0.1); Basophils % (Auto) 0.4 % (0.0-1.8); Hematocrit 48.6 % (35.5-45.6); Hemoglobin 15.8 gm/dl (11.8-15.2); Lymphocytes # (Auto) 2.8 K/mm3 (1.2-5.4); Lymphocytes % (Auto) 20.1 % (13.4-35.0); Mean Corpuscular HGB Conc 33 % (32-34); Mean Corpuscular Volume 91 fl (84-94); Monocytes # (Auto) 0.6 K/mm3 (0.0-0.8); Monocytes % (Auto) 4.1 % (0.0-7.3); Platelet Count 44 K/mm3 (140-440); Red Blood Count 5.34 M/mm3 (3.65-5.03); Red Cell Distribution Width 15.6 % (13.2-15.2)
[2020-12-06] MEDS: NORepinephrine/NS 4 MG-250 ML 4 MG/250 ML BAG IV SCH ×3 (04:40→17:16)
[2020-12-06 04:48] LABS: INR 1.35 (0.87-1.13)
[2020-12-06 05:05] LABS: Albumin 3.3 g/dL (3.9-5); Calcium 8.4 mg/dL (8.4-10.2)
[2020-12-06] MEDS: HEPARIN 5,000 UNIT/1 ML VIAL SUB-Q SCH (05:06)
[2020-12-06] MEDS ORDERED: VANCOMYCIN/NS 1 GM/250 ML 1 GM/250 ML BAG IV SCH (06:00)
--- NOTE | 2020-12-06 08:14 | XRay Report ---
CHEST - 1 VIEW 0748 hours INDICATION: follow up respiratory failure COMPARISON: Yesterday FINDINGS: Support devices: Stable support device positioning. Heart: Stable cardiomediastinal silhouette. Lungs/pleura: Left lower lobe opacity continues to improve. The left upper lobe and right lung remai n clear. Additional findings: None. IMPRESSION: Mild improvement in the left basilar airspace opacity. No new acute process. Signer Name: Leonard Burks Jr, MD Signed: 12/06/2020 8:09 AM Workstation Name: [id number]
--- NOTE | 2020-12-06 10:20 | Nuclear Medicine Report ---
NM BRAIN FLOW HISTORY: Uncal herniation, cardiac arrest, evaluate for brain COMPARISON: CT head performed yesterday TECHNIQUE: Following administration of radiopharmaceutical, followed by a saline flush, immediate dyn amic images of the head and neck were acquired in the anterior projection for one minute. Subsequentl y, static images of the head were obtained. RADIOPHARMACEUTICAL: 20.0 mCi of technetium 99m pertechnetate FINDINGS: DYNAMIC IMAGING: There is subtle but decreased in the internal carotid arteries with no identificatio n of the anterior and middle cerebral arteries. DELAYED IMAGING: No intracranial acitivity is identified. Increased activity in the nose is indicati ve of increased collateral flow through the external carotids. Additional Findings: None. IMPRESSION: No intracranial blood flow is detected on nuclear medicine brain scan. Signer Name: Leonard Burks Jr, MD Signed: 12/06/2020 10:16 AM Workstation Name: [id number]
[2020-12-06] MEDS: SENNOSIDES/DOCUSATE SODIUM 8.6/50 MG TAB FEEDTUBE SCH (10:47)
[2020-12-06] MEDS: FAMOTIDINE 20 MG/2 ML INJ IV SCH (10:47)
[2020-12-06] MEDS: cefTRIAXone/NS 2 GM/100 ML 2 GM/100 ML BAG IV SCH (11:20)
--- NOTE | 2020-12-06 11:20 | Death Summary ---
Summary - Providers Date of service: 12/06/20 Consults: 12/04/20 03:54 Consult to Physician [CONS] Routine Comment: Dr. Lira spoke with Dr. Carrillo @ [phone] Consulting Provider: FARHAT CARRILLO Physician Instructions: Reason For Exam: intubation 12/04/20 04:17 Consult to Dietitian/Nutrition [CONS] Routine Physician Instructions: Reason For Exam: Reason for Consult: Write/Manage Tube Feeding 12/04/20 05:47 Consult to Physician [CONS] Routine Comment: Consulting Provider: GIGI ZUNIGA Physician Instructions: Reason For Exam: SAURABH,HYPERCALCEMIA,HYPERMAGNESEMIA 12/04/20 07:46 Consult to Physician [CONS] Routine Comment: Consulting Provider: DUC RIVERA Physician Instructions: Reason For Exam: cardiac arrest 12/04/20 13:38 Consult to Physician [CONS] Routine Comment: Consulting Provider: INESSA KONG Physician Instructions: Reason For Exam: ams 12/04/20 14:11 Consult to Dietitian/Nutrition [CONS] Routine Physician Instructions: Reason For Exam: Reason for Consult: Evaluate nutritional intake 12/04/20 14:16 Consult to Physician [CONS] Routine Comment: Consulting Provider: ELENA HOPE Physician Instructions: Reason For Exam: AMS 12/05/20 08:16 Consult to Physician [CONS] Routine Comment: Consulting Provider: SON DUMONT Physician Instructions: Reason For Exam: Sepsis 12/05/20 08:23 PICC Line Insertion [Consult to PICC Line RN] [CONS] Routine Reason For Exam: Severe sepsis, on pressors Type Line:: PICC 12/05/20 09:36 Consult to PICC Line RN [CONS] Urgent Reason For Exam: critical patient, possible vasopressors Type Line:: PICC 12/05/20 13:51 Consult to Physician [CONS] Urgent Comment: Left mssg /Crystal ( has spoken to Dr. Morejon Consulting Provider: COTY MOREJON II Physician Instructions: Reason For Exam: Possible swelling from CT scan Attending: LESLI MORLEY MD - summary Date of admission: 12/04/20 04:17 Date of : 12/06/20 Reason for admission: cardiac arrest Significant findings: No intracranial blood flow is detected on nuclear medicine brain scan.
--- NOTE | 2020-12-06 11:21 | Event Note ---
Date: 12/06/20 Arya flow scan: No intracranial blood flow is detected on nuclear medicine brain scan. Patient this morning remains with absence of brainstem reflexes. Patient found to have pupil dilation. Patient found to have absent oculocephalic reflex. Patient also found to have absent oculovestibular reflex. Patient found to have absent corneal reflexes. Patient found to have absent facial movements to noxious stimulation. Patient found to have absent gag reflex. Patient found to have absent cough reflex in response to tracheal suctioning. Patient also found to have absent ventilatory reflex. Patient family elects to pursue organ donation. Following review of the above two test and also Apnea test done at bedside with no spontaneous breath. Pre ABG: Post Apnea ABG: I do agree that the patient meet diagnostic Critica for neurologic brain . Time of : Family notified. time of : Family -Patients Mother- Notified Life link team Notified. Nurse at bedside
--- NOTE | 2020-12-06 11:23 | Death Summary ---
Summary - Providers Date of service: 12/06/20 Consults: 12/04/20 03:54 Consult to Physician [CONS] Routine Comment: Dr. Lira spoke with Dr. Carrillo @ [phone] Consulting Provider: FARHAT CARRILLO Physician Instructions: Reason For Exam: intubation 12/04/20 04:17 Consult to Dietitian/Nutrition [CONS] Routine Physician Instructions: Reason For Exam: Reason for Consult: Write/Manage Tube Feeding 12/04/20 05:47 Consult to Physician [CONS] Routine Comment: Consulting Provider: GIGI ZUNIGA Physician Instructions: Reason For Exam: SAURABH,HYPERCALCEMIA,HYPERMAGNESEMIA 12/04/20 07:46 Consult to Physician [CONS] Routine Comment: Consulting Provider: DUC RIVERA Physician Instructions: Reason For Exam: cardiac arrest 12/04/20 13:38 Consult to Physician [CONS] Routine Comment: Consulting Provider: INESSA KONG Physician Instructions: Reason For Exam: ams 12/04/20 14:11 Consult to Dietitian/Nutrition [CONS] Routine Physician Instructions: Reason For Exam: Reason for Consult: Evaluate nutritional intake 12/04/20 14:16 Consult to Physician [CONS] Routine Comment: Consulting Provider: ELENA HOPE Physician Instructions: Reason For Exam: AMS 12/05/20 08:16 Consult to Physician [CONS] Routine Comment: Consulting Provider: SON DUMONT Physician Instructions: Reason For Exam: Sepsis 12/05/20 08:23 PICC Line Insertion [Consult to PICC Line RN] [CONS] Routine Reason For Exam: Severe sepsis, on pressors Type Line:: PICC 12/05/20 09:36 Consult to PICC Line RN [CONS] Urgent Reason For Exam: critical patient, possible vasopressors Type Line:: PICC 12/05/20 13:51 Consult to Physician [CONS] Urgent Comment: Left mssg /Crystal ( has spoken to Dr. Morejon Consulting Provider: COTY MOREJON II Physician Instructions: Reason For Exam: Possible swelling from CT scan Attending: LESLI MORLEY MD - summary Date of admission: 12/04/20 04:17 Date of : 12/06/20 Reason for admission: cardiac arrest Significant findings: time of : Family -Patients Mother- Notified Life link team Notified. Nurse at bedside
[2020-12-06] MEDS ORDERED: VANCOMYCIN/NS 1 GM/250 ML 1 GM/250 ML BAG IV ONE (12:00)
[2020-12-06] MEDS ORDERED: SODIUM BICARB 8.4% 50 MEQ/50 ML SYRINGE IV ONE ×2 (12:40→12:42)
[2020-12-06] MEDS ORDERED: SODIUM BICARB 8.4% 50 MEQ/50 ML SYRINGE IV NR (13:00)
[2020-12-06] MEDS ORDERED: EPINEPHrine 1 MG/10 ML SYRINGE ONE (13:55)
[2020-12-06] MEDS ORDERED: METOPROLOL TARTRATE 5 MG/5 ML INJ IV ONE (14:04)
[2020-12-06 14:11] LABS: ABG HCO3 24.8 mmol/L (20.0-26.0); ABG PCO2 45.2 mm Hg; ABG PH 7.358 pH Units (7.350-7.450); ABG PO2 554.1 mm Hg (80.0-90.0)
[2020-12-06 14:12] LABS: ABG Base Excess -0.9 mmol/L (-2.0-3.0); ABG Methemoglobin 0.3 % (0.0-1.5)
--- NOTE | 2020-12-06 14:36 | Event Note ---
Date: 12/06/20
--- NOTE | 2020-12-06 15:09 | XRay Report ---
CHEST 1 VIEW 12/06/2020 1:57 PM INDICATION / CLINICAL INFORMATION: pneumothorax. COMPARISON: None available. FINDINGS: There is a large left pneumothorax. ET tube is satisfactory in position. Diffuse emphysematous gas in the chest wall. NG tube extends within the stomach. IMPRESSION: Large left pneumothorax. CRITICAL RESULT: Time of Discovery (LEGAL DOCUMENT ASSISTANT/CDT): Time of Communication (LEGAL DOCUMENT ASSISTANT/CDT): Read-Back Performed: Yes. Signer Name: Chauncey Mosquera MD Signed: 12/06/2020 3:05 PM Workstation Name: [id number]
--- NOTE | 2020-12-06 15:33 | Consultation ---
History of Present Illness Consult date: 12/06/20 Reason for Consult: Altered Mental Status Chief complaint: Altered Mental Status History of present illness: 45 yo male with heroin abuse/overdose with recent (2 weeks ago) hx of out of hospital cpr, presents with out of hospital cardiac arrest ("pulseless and apneic") with noted encephalopathy. Initial NCHCT in the ED, on admission, revealed no acute ICH. Per RN, today, noted with an episode of hypotension and he was "resuscitated" this afternoon and repeat NCHCT reveals diffuse cerebral injury with a concern for central herniation. Per RN, the patient does not have any CN reflexes and no movement of his extremities. Of note, two attempts made this morning during rounds to see patient but patient was not available to be seen. Past History Past Medical History: No medical history, other (heroin abuse, hx of out of hospital cpr in the recent past) Past Surgical History: Other (Not obtainble) Social history: other (Not obtainble) Family history: other (Not obtainble) Medications and Allergies Allergies Allergy/AdvReac Type Severity Reaction Status Date / Time No Known Allergies Allergy Unverified 12/05/17 21:05 Home Medications Medication Instructions Recorded Confirmed Last Taken Type Naloxone HCl [Narcan Nasal [place]] 4 mg NS PRN PRN #2 spray 06/02/19 Unknown Rx Active Meds: Active Medications Acetaminophen (Acetaminophen 650 Mg Rect Supp) 650 mg WA Q6H PRN PRN Reason: Pain MILD(1-3)/Fever >100.5/CALLEJAS Last Admin: 12/05/20 05:30 Dose: 650 mg Documented by: Acetaminophen (Acetaminophen 325 Mg Tab) 650 mg PO Q6H PRN PRN Reason: Pain, Mild (1-3) Lipase/Protease/Amylase (Lipase 10,500/Protease 25,000/Amylase 43,750 (Units) Dr Caballero) 1 each FEEDTUBE PRN PRN PRN Reason: For Clogged Feeding Tube Dextrose (Dextrose 50% In Water (25gm) 50 Ml Syringe) 50 ml IV Q30MIN PRN; Protocol PRN Reason: Hypoglycemia Famotidine (Famotidine 20 Mg/2 Ml Inj) 10 mg IV BID GLEN Last Admin: 12/06/20 10:47 Dose: 10 mg Documented by: Fentanyl (Fentanyl 100 Mcg/2 Ml Inj) 50 mcg IV Q10MIN PRN PRN Reason: ANALGESIA Hydromorphone HCl (Hydromorphone 1 Mg/1 Ml Inj) 0.25 mg IV Q4H PRN PRN Reason: Pain, Moderate (4-6) Hydrophilic Ointment (Lip Therapy Vaseline) 1 applic TP Q2HR PRN PRN Reason: Dry Lips Propofol (Diprivan 10 Mg/Ml) 1,000 mg in 100 mls @ 1.95 mls/hr IV TITR GLEN; Protocol Last Titration: 12/05/20 17:52 Dose: 0 mcg/kg/min, 0 mls/hr Documented by: Fentanyl Citrate (Fentanyl Drip Premix) 2,000 mcg in 100 mls @ 3.25 mls/hr IV TITR GLEN; Protocol Last Titration: 12/05/20 17:53 Dose: 0 mcg/kg/hr, 0 mls/hr Documented by: Norepinephrine (Levophed Drip 4 Mg/Ns 250 Ml) 4 mg in 250 mls @ 7.5 mls/hr IV TITR GLEN; Protocol Last Admin: 12/06/20 12:56 Dose: 6 mcg/min, 22.5 mls/hr Documented by: Ceftriaxone Sodium (Rocephin/Ns 2 Gm/100 Ml) 2 gm in 100 mls @ 200 mls/hr IV Q24H GLEN; Protocol Last Admin: 12/06/20 11:20 Dose: 200 mls/hr Documented by: Sodium Chloride (Nacl 0.9% 500 Ml) 500 mls @ 1 mls/hr IV DIRECT PRN PRN Reason: ARTERIAL LINE FLUSH Last Admin: 12/05/20 21:17 Dose: 1 mls/hr Documented by: Vasopressin 20 unit/ Sodium (Chloride) 101 mls @ 9.09 mls/hr IV TITR GLEN; Protocol Last Titration: 12/06/20 00:31 Dose: 0.03 units/min, 9.09 mls/hr Documented by: Insulin Human Lispro (Insulin Lispro 100 Unit/Ml) 0 unit SUB-Q Q6HR GLEN; Protocol Last Admin: 12/06/20 11:29 Dose: Not Given Documented by: Multi-Ingred Cream/Lotion/Oil/Oint (Mineral Oil/Petrolatum, White Ophth Oint 3.5 Gm) 1 applic OU Q4HR PRN PRN Reason: Dry Eye(s) Senna/Docusate Sodium (Sennosides/Docusate Sodium 8.6/50 Mg Tab) 1 tab FEEDTUBE BID [facility] Last Admin: 12/06/20 10:47 Dose: 1 tab Documented by: Simple Syrup (Simple Syrup 15 Ml) 15 ml FEEDTUBE PRN PRN PRN Reason: Hypoglycemia Simple Syrup (Simple Syrup 15 Ml) 30 ml FEEDTUBE PRN PRN PRN Reason: Hypoglycemia Sodium Bicarbonate (Sodium Bicarbonate 325 Mg Tab) 325 mg FEEDTUBE PRN PRN PRN Reason: For Clogged Feeding Tube Sodium Chloride (Sodium Chloride 0.9% 10 Ml Flush Syringe) 10 ml IV BID [facility] Last Admin: 12/06/20 11:28 Dose: 10 ml Documented by: Sodium Chloride (Sodium Chloride 0.9% 10 Ml Flush Syringe) 10 ml IV PRN PRN PRN Reason: LINE FLUSH Review of Systems ROS unobtainable: due to mental status Physical Examination - Vital Signs Vital Signs: Vital Signs Pulse Resp BP 103 H 13 77/43 12/04/20 03:00 12/04/20 03:00 12/04/20 03:00 - Physical Exam Narrative exam: Gen: nad, well-nourished, intubated; Head: normocephalic; Eyes: no gaze deviation; no unilateral ptosis appreciated; ENT: +ETT; CVS: warm and well-perfused; Pulm: no respiratory distress; GI: appears non-distended; Ext: no cyanosis appreciated at distal extremities; Skin: no acute rash appreciated at distal extremities; Heme: no bruising appreciated at distal extremities; Neuro: comatose, intubated, CN 2 - non-reactive pupils, CN 3, 4, 6 - oculocephalic absent, CN 5/7 - corneal reflex absent, CN 9/10 - cough reflex absent CN 11/12 - pt cannot cooperate secondary to LOC; Motor/Sensory - 05 at all exts to tactile stimuli; Cerebellar/Gait - pt cannot cooperate secondary to LOC; NIHSS>30 Results - Laboratory Findings CBC and BMP: 12/06/20 04:20 12/06/20 04:20 Abnormal Lab Findings: Abnormal Labs 12/04/20 12/04/20 12/04/20 02:50 02:50 04:51 WBC RBC Hgb Hct RDW Plt Count Lymph % (Auto) [place] % (Auto) [place] # (Auto) Seg Neutrophils % Seg Neuts % (Manual) 26.0 L Lymphocytes % (Manual) 70.0 H Seg Neutrophils # Lymphocytes # (Manual) 6.9 H PT INR D-Dimer ABG pH 7.341 L POC ABG pCO2 POC ABG pO2 ABG pO2 527.8 H ABG O2 Saturation 99.6 H ABG Base Excess -4.4 L ABG Sodium ABG Potassium ABG Chloride ABG Glucose Sodium Potassium 3.5 L Chloride Carbon Dioxide BUN 21 H Creatinine 1.9 H Glucose 362 H POC Glucose Calcium 10.9 H Magnesium 2.80 H AST 77 H ALT 72 H Lactate Dehydrogenase Total Creatine Kinase C-Reactive Protein Total Protein 5.8 L Albumin Arterial Blood Glucose Urine WBC (Auto) 12/04/20 12/04/20 12/04/20 08:19 09:42 13:45 WBC RBC Hgb Hct RDW Plt Count Lymph % (Auto) [place] % (Auto) [place] # (Auto) Seg Neutrophils % Seg Neuts % (Manual) Lymphocytes % (Manual) Seg Neutrophils # Lymphocytes # (Manual) PT INR D-Dimer ABG pH POC ABG pCO2 POC ABG pO2 ABG pO2 128.7 H ABG O2 Saturation ABG Base Excess -2.7 L ABG Sodium ABG Potassium ABG Chloride ABG Glucose Sodium Potassium Chloride Carbon Dioxide BUN Creatinine Glucose POC Glucose 178 H 115 H Calcium Magnesium AST ALT Lactate Dehydrogenase Total Creatine Kinase C-Reactive Protein Total Protein Albumin Arterial Blood Glucose Urine WBC (Auto) 12/04/20 12/04/20 12/04/20 13:54 15:11 15:11 WBC RBC Hgb Hct RDW Plt Count Lymph % (Auto) [place] % (Auto) [place] # (Auto) Seg Neutrophils % Seg Neuts % (Manual) Lymphocytes % (Manual) Seg Neutrophils # Lymphocytes # (Manual) PT INR D-Dimer > 52406 H ABG pH POC ABG pCO2 POC ABG pO2 ABG pO2 ABG O2 Saturation ABG Base Excess ABG Sodium ABG Potassium ABG Chloride ABG Glucose Sodium Potassium Chloride Carbon Dioxide BUN Creatinine Glucose POC Glucose 116 H Calcium Magnesium AST ALT Lactate Dehydrogenase 452 H Total Creatine Kinase C-Reactive Protein Total Protein Albumin Arterial Blood Glucose Urine WBC (Auto) 12/04/20 12/04/20 12/04/20 15:11 18:07 21:13 WBC RBC Hgb Hct RDW Plt Count Lymph % (Auto) [place] % (Auto) [place] # (Auto) Seg Neutrophils % Seg Neuts % (Manual) Lymphocytes % (Manual) Seg Neutrophils # Lymphocytes # (Manual) PT INR D-Dimer ABG pH POC ABG pCO2 POC ABG pO2 ABG pO2 ABG O2 Saturation ABG Base Excess ABG Sodium ABG Potassium ABG Chloride ABG Glucose Sodium Potassium Chloride Carbon Dioxide BUN Creatinine Glucose POC Glucose 118 H 109 H Calcium Magnesium AST ALT Lactate Dehydrogenase Total Creatine Kinase C-Reactive Protein 2.80 H Total Protein Albumin Arterial Blood Glucose Urine WBC (Auto) 12/05/20 12/05/20 12/05/20 02:31 03:30 04:39 WBC 20.1 H RBC 5.31 H Hgb 16.2 H Hct 48.2 H RDW Plt Count Lymph % (Auto) 7.3 L [place] % (Auto) 8.4 H [place] # (Auto) 1.7 H Seg Neutrophils % 84.2 H Seg Neuts % (Manual) Lymphocytes % (Manual) Seg Neutrophils # 16.9 H Lymphocytes # (Manual) PT INR D-Dimer ABG pH POC ABG pCO2 POC ABG pO2 ABG pO2 ABG O2 Saturation ABG Base Excess ABG Sodium ABG Potassium 5.0 H ABG Chloride 108.0 H ABG Glucose 132 H Sodium Potassium Chloride Carbon Dioxide BUN Creatinine Glucose POC Glucose 107 H Calcium Magnesium AST ALT Lactate Dehydrogenase Total Creatine Kinase C-Reactive Protein Total Protein Albumin Arterial Blood Glucose 132 H Urine WBC (Auto) 12/05/20 12/05/20 12/05/20 04:39 04:39 05:35 WBC RBC Hgb Hct RDW Plt Count Lymph % (Auto) [place] % (Auto) [place] # (Auto) Seg Neutrophils % Seg Neuts % (Manual) Lymphocytes % (Manual) Seg Neutrophils # Lymphocytes # (Manual) PT 17.8 H INR 1.40 H D-Dimer ABG pH POC ABG pCO2 POC ABG pO2 ABG pO2 ABG O2 Saturation ABG Base Excess ABG Sodium ABG Potassium ABG Chloride ABG Glucose Sodium Potassium 5.4 H D Chloride 109.5 H Carbon Dioxide BUN 41 H Creatinine 2.7 H Glucose 134 H POC Glucose 120 H Calcium 8.0 L D Magnesium AST ALT Lactate Dehydrogenase Total Creatine Kinase C-Reactive Protein Total Protein Albumin Arterial Blood Glucose Urine WBC (Auto) 12/05/20 12/05/20 12/05/20 06:01 11:20 18:35 WBC RBC Hgb Hct RDW Plt Count Lymph % (Auto) [place] % (Auto) [place] # (Auto) Seg Neutrophils % Seg Neuts % (Manual) Lymphocytes % (Manual) Seg Neutrophils # Lymphocytes # (Manual) PT INR D-Dimer ABG pH POC ABG pCO2 POC ABG pO2 ABG pO2 ABG O2 Saturation ABG Base Excess ABG Sodium ABG Potassium ABG Chloride ABG Glucose Sodium Potassium Chloride Carbon Dioxide BUN Creatinine Glucose POC Glucose 109 H 114 H Calcium Magnesium AST ALT Lactate Dehydrogenase Total Creatine Kinase C-Reactive Protein Total Protein Albumin Arterial Blood Glucose Urine WBC (Auto) 20.0 H 12/05/20 12/05/20 12/06/20 21:00 23:19 04:20 WBC RBC Hgb Hct RDW Plt Count Lymph % (Auto) [place] % (Auto) [place] # (Auto) Seg Neutrophils % Seg Neuts % (Manual) Lymphocytes % (Manual) Seg Neutrophils # Lymphocytes # (Manual) PT INR D-Dimer ABG pH POC ABG pCO2 30.2 L POC ABG pO2 ABG pO2 ABG O2 Saturation ABG Base Excess ABG Sodium 145.2 H ABG Potassium 6.2 H ABG Chloride 120.0 H ABG Glucose 134 H Sodium 152 H D 152 H Potassium Chloride 123.5 H 126.1 H Carbon Dioxide 19 L 21 L BUN 46 H 46 H Creatinine 2.4 H 2.2 H Glucose 133 H 136 H POC Glucose Calcium 7.5 L Magnesium AST 86 H 65 H ALT 60 H 62 H Lactate Dehydrogenase Total Creatine Kinase 311 H C-Reactive Protein Total Protein 5.1 L 5.6 L Albumin 3.1 L 3.3 L Arterial Blood Glucose 134 H Urine WBC (Auto) 12/06/20 12/06/20 12/06/20 04:20 04:20 05:00 WBC 13.7 H RBC 5.34 H Hgb 15.8 H Hct 48.6 H RDW 15.6 H Plt Count 44 L Lymph % (Auto) [place] % (Auto) [place] # (Auto) Seg Neutrophils % 75.4 H Seg Neuts % (Manual) Lymphocytes % (Manual) Seg Neutrophils # 10.3 H Lymphocytes # (Manual) PT 17.3 H INR 1.35 H D-Dimer ABG pH POC ABG pCO2 31.5 L POC ABG pO2 144.6 H ABG pO2 ABG O2 Saturation ABG Base Excess ABG Sodium 151.0 H ABG Potassium 4.6 H ABG Chloride 124.0 H ABG Glucose 136 H Sodium Potassium Chloride Carbon Dioxide BUN Creatinine Glucose POC Glucose Calcium Magnesium AST ALT Lactate Dehydrogenase Total Creatine Kinase C-Reactive Protein Total Protein Albumin Arterial Blood Glucose 136 H Urine WBC (Auto) 12/06/20 12/06/20 11:28 12:41 WBC RBC Hgb Hct RDW Plt Count Lymph % (Auto) [place] % (Auto) [place] # (Auto) Seg Neutrophils % Seg Neuts % (Manual) Lymphocytes % (Manual) Seg Neutrophils # Lymphocytes # (Manual) PT INR D-Dimer ABG pH POC ABG pCO2 POC ABG pO2 ABG pO2 554.1 H ABG O2 Saturation 100.0 H ABG Base Excess ABG Sodium ABG Potassium ABG Chloride ABG Glucose Sodium Potassium Chloride Carbon Dioxide BUN Creatinine Glucose POC Glucose 107 H Calcium Magnesium AST ALT Lactate Dehydrogenase Total Creatine Kinase C-Reactive Protein Total Protein Albumin Arterial Blood Glucose Urine WBC (Auto) Assessment and Plan 45 yo male with heroin abuse/overdose presenting s/p cardiac arrest with noted diffuse hypoxic anoxic injury on ct head w/o contrast from today. This is an urgent consult placed at end of shift and without televideo personnel available for bedside televideo evaluation. All information regarding today's change in neurologic status was obtained today via conversation with the patient's nurse. 1. Hypoxic Anoxic Encephaloapthy - confirmed on NCHCT yesterday (images reviewed); absence of flow on cerebral flow study; per emr, electrocerebral silence on eeg x 30 mins. 2. Subclinical Seizures - no evidence on EEG 3. Heroin Abuse - etiology of patient's cardiac arrest. 4. Concern is raised for futile care (based on #1 above) and the RN, at bedside, notes the patient failed the apnea test, raising concern for probable brain . Kodi Berry MD Neurology [id number]
--- NOTE | 2020-12-06 15:35 | XRay Report ---
XR chest 1V ap INDICATION / CLINICAL INFORMATION: chest tube placement. COMPARISON: 12/06/2020 at 2:45 PM FINDINGS: SUPPORT DEVICES: Interval placement of left thoracostomy tube. Other support devices are stable. HEART /PULMONARY VASCULATURE: Unchanged. LUNGS / PLEURA: Lung parenchyma is not significantly changed. Left pneumothorax appears resolved. Th ere is suggestion of a small right apical pneumothorax IMPRESSION: 1. Suspected small right apical pneumothorax. 2. Left pneumothorax is essentially resolved following chest tube placement. Findings were discussed with patient's nurse by phone on 12/06/2020 at 2:31 PM Signer Name: Holland Queen MD Signed: 12/06/2020 3:31 PM Workstation Name: [id number]
--- NOTE | 2020-12-06 15:40 | Event Note ---
Date: 12/06/20 Physical exam conducted. Patient found to have absence of motor responses. Patient also found to have absence of brainstem reflexes. Patient found to have pupil dilation. Patient found to have absent oculocephalic reflex. Patient also found to have absent oculovestibular reflex. Patient found to have absent corneal reflexes. Patient found to have absent facial movements to noxious stimulation. Patient found to have absent gag reflex. Patient found to have absent cough reflex in response to tracheal suctioning. Patient also found to have absent ventilatory reflex. EEG patient found to have no electrical activity during these 30 minutes of recording. Patient family elects to pursue organ donation. Patient found to meet diagnostic criteria for neurologic brain .
--- NOTE | 2020-12-06 15:48 | Death Summary ---
Summary - Providers Date of service: 12/06/20 Consults: 12/04/20 03:54 Consult to Physician [CONS] Routine Comment: Dr. Lira spoke with Dr. Carrillo @ [phone] Consulting Provider: FARHAT CARRILLO Physician Instructions: Reason For Exam: intubation 12/04/20 04:17 Consult to Dietitian/Nutrition [CONS] Routine Physician Instructions: Reason For Exam: Reason for Consult: Write/Manage Tube Feeding 12/04/20 05:47 Consult to Physician [CONS] Routine Comment: Consulting Provider: GIGI ZUNIGA Physician Instructions: Reason For Exam: SAURABH,HYPERCALCEMIA,HYPERMAGNESEMIA 12/04/20 07:46 Consult to Physician [CONS] Routine Comment: Consulting Provider: DUC RIVERA Physician Instructions: Reason For Exam: cardiac arrest 12/04/20 13:38 Consult to Physician [CONS] Routine Comment: Consulting Provider: INESSA KONG Physician Instructions: Reason For Exam: ams 12/04/20 14:11 Consult to Dietitian/Nutrition [CONS] Routine Physician Instructions: Reason For Exam: Reason for Consult: Evaluate nutritional intake 12/04/20 14:16 Consult to Physician [CONS] Routine Comment: Consulting Provider: ELENA HOPE Physician Instructions: Reason For Exam: AMS 12/05/20 08:16 Consult to Physician [CONS] Routine Comment: Consulting Provider: SON DUMONT Physician Instructions: Reason For Exam: Sepsis 12/05/20 08:23 PICC Line Insertion [Consult to PICC Line RN] [CONS] Routine Reason For Exam: Severe sepsis, on pressors Type Line:: PICC 12/05/20 09:36 Consult to PICC Line RN [CONS] Urgent Reason For Exam: critical patient, possible vasopressors Type Line:: PICC 12/05/20 13:51 Consult to Physician [CONS] Urgent Comment: Left mss /Crystal ( has spoken to Dr. Morejon Consulting Provider: COTY MOREJON II Physician Instructions: Reason For Exam: Possible swelling from CT scan Attending: LESLI MORLEY MD - summary Date of admission: 12/04/20 04:17 Date of : 12/06/20 Reason for admission: cardiac arrest Significant findings: 45-year-old -[place] male with a history of polysubstance abuse and narcotic abuse, brought in by EMS s/p cardiac arrest. Patient was said to be at home taking a shower when he suddenly collapsed and CPR was immediately started. Upon arrival of EMS patient was said to be pulseless and apneic. Per EMS, tessy murphy was given epinephrine and Narcan without any significant improvement was subsequently given sodium bicarb and calcium, he had multiple rounds of epinephrine and eventually had return of spontaneous circulation. Hospital Course On admission the patient was continued on mechanical ventilation, following conversation with the patients mother and concerning for withdrawal vs overdose also the aptient was with increased work of breathing he was started on Fentanly. Initial imaging was unremarkable, But he remained unresponsive. 12/05/20- Patient is intubated and on low dose fentynal, RASS-5, pupils are dilated and nonreactive with neg gag and cough. High temp 107.4, sepsis protocol initiated, Stat CT head, lactic, and procal ordered. ID & Neuro surgery consult ed. Neurosurgery was consulted following findings on Imaging study which was significant for cerebral edema and possible herniation. Family was updated about the grave prognosis and came to visit the patient. Life link was notified. 12/06: Arya flow scan: No intracranial blood flow is detected on nuclear medicine brain scan. Patient this morning remains with absence of brainstem reflexes. Patient found to have pupil dilation. Patient found to have absent oculocephalic reflex. Patient also found to have absent oculovestibular reflex. Patient found to have absent corneal reflexes. Patient found to have absent facial movements to noxious stimulation. Patient found to have absent gag reflex. Patient found to have absent cough reflex in response to tracheal suctioning. Patient also found to have absent ventilatory reflex. Patient family elects to pursue organ donation. Following review of the above two test and also Apnea test done at bedside with no spontaneous breath. Pre apnea ABG: PH 7.35 PCO2 45, Post Apnea ABG: PH 6.85, PCO2 147 I do agree that the patient meet diagnostic Critical for neurologic brain . Time of : 14:16 Family notified. Cardiac arrest Acute Encephalopathy Toxic vs Metabolic Dilated Cardiomyopathy Lt. Bundle Brunch Block Hypotension Acute Respiratory Failure 2/2 Pneumonitis vs Aspiration PNA, COVID PUI SAURABH (Acute Kidney Injury) with vasomotor nephropathy Hyperkalemia ID: Sepsis possibly Pneumonitis vs aspiration PNA COVID PUI- ruled out Drug abuse- Amphetamine
--- NOTE | 2020-12-06 15:50 | Event Note ---
Date: 12/06/20 APNEA TEST NOTE Apnea test done at bedside pCO2 on MVS was 45.0 mmHg at begining of test 100% FiO2 delivered via tubing at level of eron through ETT no overt hemodynamic decompensation noted during test (patient was on Levophed drip prior) After 5 minutes pCO2 lauro > 30 mmHg above baseline of 45 mmHg Apnea test abandoned at 8 minutes due to worsening hypoxemia & Hypotension No chest wall rise and fall or nasal flaring noted during test ..... please see other documentation for brain criteria
[2020-12-06] MEDS ORDERED: SODIUM CHLORIDE 0.9% 1000 ML 1,000 ML IV ONE (16:28)
--- NOTE | 2020-12-06 17:25 | Procedure Note ---
Date of procedure: 12/06/20 Pre-op diagnosis: Large Left Pneumothorax Post-op diagnosis: same Procedure: Chest Tube Placement Patient was evaluated and required chest tube placement due to large left pneumothorax Emergency Procedure A time-out was performed, will all individuals present agreeing on the procedure to be performed, the site of the procedure, and the patient identity. The patient was positioned appropriately for chest tube placement. The patients left chest was marked, prepped, and draped in usual sterile technique. 1% Lidocaine was used to anesthetize the skin down to the rib and along the proposed insertion path for the tube. An 18 gauge needle with syringe attached was inserted into the pleural space with aspiration of air / fluid to verify placement. A guide wire was advanced into the pleural space and the needle was withdrawn. A 0.5cm incision was made through the skin and the subcutaneous tissues were dilated. The 8Fr Arrow pigtail chest drain was inserted into the pleural space. The drain was then immediately connected to a Pleur-evac. Adequate placement confirmed by air tidaling. The tube was sutured in place and dressing applied. CXR has been ordered to confirm adequate placement. The patient tolerated the procedure well and there were no complications. Anesthesia: local Surgeon: FARHAT ARCEO Balancer Scale: FABIAN MCLEAN Estimated blood loss: none IV fluids: 0 Pathology: none Disposition: ICU
[2020-12-06 17:40] VITALS: BP 104/74
[2020-12-06] MEDS ORDERED: LACTATED RINGERS 1,000 ML ONE (17:45)
[2020-12-06] MEDS ORDERED: LACTATED RINGERS 500 ML IV ONE (17:45)
--- NOTE | 2020-12-10 14:06 | Electrocardiograph Report ---
[facility] Test Date: 2020-12-04 Test Time: 02:53:50 Pat Name: BRENDA BLACKMAN Department: Room: A263 Gender: M Forest Fire Fighter: : 1975 Requested By: JAROCHO ANTOINE Order Number: [id number] Reading MD: Reynaldo Montes Measurements Intervals [place] Rate: 103 P: 81 IL: 172 QRS: 45 QRSD: 157 T: 219 QT: 420 QTc: 551 Interpretive Statements Sinus tachycardia Probable left atrial enlargement Left bundle branch block No previous ECG available for comparison Electronically Signed On 12-10-2020 14:06:43 EDT by Reynaldo Montes
--- NOTE | 2020-12-10 14:16 | Electrocardiograph Report ---
[facility] Test Date: 2020-12-05 Test Time: 02:07:50 Pat Name: BRENDA BLACKMAN Department: Room: A263 1 Gender: M Home Health Administrator: PAMELA : 1975 Requested By: HI HOOPER Order Number: [id number] Reading MD: Reynaldo Montes Measurements Intervals [place] Rate: 138 P: 267 HI: 108 QRS: 66 QRSD: 137 T: 152 QT: 366 QTc: 554 Interpretive Statements Sinus tachycardia Left bundle branch block Compared to ECG 12/04/2020 02:53:50 Sinus rate has increased Electronically Signed On 12-10-2020 14:15:28 EDT by Reynaldo Montes
--- NOTE | 2020-12-10 14:20 | Electrocardiograph Report ---
[facility] Test Date: 2020-12-05 Test Time: 13:56:08 Pat Name: BRENDA BLACKMAN Department: Room: A263 1 Gender: M Real Estate Associate: PRASHANTH : 1975 Requested By: FARHAT ARCEO Order Number: [id number] Reading MD: Reynaldo Montes Measurements Intervals [place] Rate: 111 P: 0 [place]: 45 QRS: 48 QRSD: 150 T: 107 QT: 444 QTc: 604 Interpretive Statements Sinus tachycardia Biatrial enlargement LEFT BUNDLE BRANCH BLOCK Compared to ECG 12/05/2020 12:10:06 No significant changes Electronically Signed On 12-10-2020 14:20:28 EDT by Reynaldo Montes
--- NOTE | 2020-12-10 14:20 | Electrocardiograph Report ---
[facility] Test Date: 2020-12-05 Test Time: 12:10:06 Pat Name: BRENDA BLACKMAN Department: Room: A263 1 Gender: M Yard Inspector: PRASHANTH : 1975 Requested By: FABIAN MCLEAN Order Number: [id number] Reading MD: Renyaldo Montes Measurements Intervals [place] Rate: 101 P: 91 MD: 191 QRS: 43 QRSD: 144 T: 223 QT: 378 QTc: 490 Interpretive Statements Sinus tachycardia Biatrial enlargement LEFT BUNDLE BRANCH BLOCK Compared to ECG 12/05/2020 02:07:50 Sinus rate has decreased Electronically Signed On 12-10-2020 14:20:03 EDT by Reynaldo Montes
== END 2020-12-06 14:16 | DRG 871 ==
LOC: ED 02:44 → CC1 04:17
PROVIDERS: ADMIT Internal Medicine Geriatric Medicine; ATTEND Internal Medicine
PROC: 5A1945Z Respiratory Ventilation, 24-96 Consecutive Hours (ICD-10-PCS; principal; 2020-12-04)
PROC: 0BH17EZ Insertion of Endotracheal Airway into Trachea, Via Natural or Artificial Opening (ICD-10-PCS; 2020-12-04)
PROC: 4A033R1 Measurement of Arterial Saturation, Peripheral, Percutaneous Approach (ICD-10-PCS; 2020-12-04)
PROC: 02HV33Z Insertion of Infusion Device into Superior Vena Cava, Percutaneous Approach (ICD-10-PCS; 2020-12-05)
PROC: 03HY32Z Insertion of Monitoring Device into Upper Artery, Percutaneous Approach (ICD-10-PCS; 2020-12-06)
PROC: 0W9B30Z Drainage of Left Pleural Cavity with Drainage Device, Percutaneous Approach (ICD-10-PCS; 2020-12-06)
DX: A41.9 Sepsis, unspecified organism (principal); N17.0 Acute kidney failure with tubular necrosis; J96.01 Acute respiratory failure with hypoxia; G92 Toxic encephalopathy; J69.0 Pneumonitis due to inhalation of food and vomit; I42.0 Dilated cardiomyopathy; J93.9 Pneumothorax, unspecified; I46.9 Cardiac arrest, cause unspecified; E83.52 Hypercalcemia; F15.10 Other stimulant abuse, uncomplicated; Z20.822 Contact with and (suspected) exposure to COVID-19; E83.41 Hypermagnesemia; R73.9 Hyperglycemia, unspecified; E87.6 Hypokalemia; I13.10 Hypertensive heart and chronic kidney disease without heart failure, with stage 1 through stage 4 chronic kidney disease, or unspecified chronic kidney disease; N18.9 Chronic kidney disease, unspecified; I44.7 Left bundle-branch block, unspecified; R13.12 Dysphagia, oropharyngeal phase
CPT/HCPCS: 36415; 36600; 70450; 71045; 71250; 74018; 76770; 78601; 80048; 80053; 80202; 80307; 80320; 81001; 82140; 82550; 82728; 82803; 82805; 82962; 83036; 83615; 83735; 84145; 84484; 85007; 85025; 85379; 85610; 86140; 86850; 86900; 86901; 87040; 87070; 87076; 87086; 87186; 87205; 93005; 93306; 94002; 94003; G0378; A9512; G0480; J0171; J0282; J0295; J0696; J1644; J1815; J1956; J2704; J3010; J3370; J7030; J7040; J7060; J7120; U0003

== ENCOUNTER 2020-12-06 14:16 | Inpatient (IN) | payer OTHER ==
[2020-12-06] MEDS ORDERED: LACTATED RINGERS 1,000 ML IV SCH (19:25)
[2020-12-06] MEDS ORDERED: PHENYLEPHRINE 100 MG in SODIUM CHLORIDE 0.9% 90 ML IV SCH (19:26)
[2020-12-06] MEDS ORDERED: VASOPRESSIN 20 UNIT in SODIUM CHLORIDE 0.9% 100 ML IV SCH (19:26)
[2020-12-06] MEDS: NORepinephrine/NS 8 MG-250 ML 8 MG/250 ML INFUS..BTL IV SCH ×4 (19:26→23:08)
[2020-12-06 19:50] LABS: Hematocrit 44.6 % (35.5-45.6); Hemoglobin 14.5 gm/dl (11.8-15.2); Mean Corpuscular HGB Conc 32 % (32-34); Mean Corpuscular Volume 92 fl (84-94); Red Blood Count 4.86 M/mm3 (3.65-5.03); Red Cell Distribution Width 16.3 % (13.2-15.2)
[2020-12-06 19:51] LABS: Platelet Count 41 K/mm3 (140-440)
[2020-12-06] MEDS ORDERED: LEVOTHYROXINE 100 MCG INJ IV SCH (19:52)
[2020-12-06 20:14] LABS: Alanine Aminotransferase 66 units/L (7-56); BUN/Creatinine Ratio 19; Blood Urea Nitrogen 44 mg/dL (9-20); Calcium 8.3 mg/dL (8.4-10.2); Hemolysis Index 4
[2020-12-06 20:17] LABS: INR 1.37 (0.87-1.13)
[2020-12-06 20:18] LABS: Partial Thromboplastin Time 28.3 Sec. (24.2-36.6)
[2020-12-06] MEDS ORDERED: ALBUMIN HUMAN 25% (25 GM/100 ML) INJ IV ONE (20:30)
[2020-12-06 20:31] LABS: Bilirubin,Direct < 0.2 mg/dL (0-0.2)
[2020-12-06] MEDS: WATER IV SCH ×2 (20:47→23:09)
[2020-12-06] MEDS: LEVOTHYROXINE IV SCH ×2 (20:47→23:09)
[2020-12-06] MEDS: DEXTROSE 5% IV SCH ×2 (20:47→23:09)
== END 2020-12-07 00:10 | DRG 871 ==
LOC: CC1 14:16 → UNDOADMIN 14:16
PROC: 4A033R1 Measurement of Arterial Saturation, Peripheral, Percutaneous Approach (ICD-10-PCS; principal; 2020-12-06)
PROC: 0W9B30Z Drainage of Left Pleural Cavity with Drainage Device, Percutaneous Approach (ICD-10-PCS; 2020-12-06)
PROC: 05HY33Z Insertion of Infusion Device into Upper Vein, Percutaneous Approach (ICD-10-PCS; 2020-12-06)
DX: A41.9 Sepsis, unspecified organism (principal); G92.9 Unspecified toxic encephalopathy; J96.00 Acute respiratory failure, unspecified whether with hypoxia or hypercapnia; J69.0 Pneumonitis due to inhalation of food and vomit; N17.0 Acute kidney failure with tubular necrosis; J93.9 Pneumothorax, unspecified; I42.0 Dilated cardiomyopathy; I46.9 Cardiac arrest, cause unspecified; E83.52 Hypercalcemia; E83.41 Hypermagnesemia; I44.7 Left bundle-branch block, unspecified; F15.10 Other stimulant abuse, uncomplicated; E87.5 Hyperkalemia
CPT/HCPCS: 36415; 80053; 82247; 82248; 82805; 82962; 85027; 85610; 85730; G0378; J2370; J7060; J7120; P9047